=== PATIENT | male | born 1935 | race Caucasian/White ===

== ENCOUNTER 2022-06-22 19:44 | Inpatient (IN) | payer MEDICARE, MEDICAID, SELFPAY ==
[2022-06-22 19:53] VITALS: BP 148/68; PULSE 93; RESP 18; TEMP 36.6; O2SAT 94; BMI 34.4
--- NOTE | 2022-06-22 19:57 | CTR_ITS ---
PROCEDURE INFORMATION: Exam: CT Right Lower Extremity With Contrast, Foot Exam date and time: 06/22/2022 8:42 PM Age: 86 years old Clinical indication: Cellulitis and swelling, leg or foot; Right; Patient HX: Redness and swelling to distal foot with necrosis to digits. History of diabetes. ; Additional info: Infection TECHNIQUE: Imaging protocol: CT of the Right lower extremity with intravenous contrast was performed. Exam focused on the foot. Radiation optimization: All CT scans at this facility use at least one of these dose optimization techniques: automated exposure control; mA and/or kV adjustment per patient size (includes targeted exams where dose is matched to clinical indication); or iterative reconstruction. Contrast material: OMNI 350; Contrast volume: 100 ml; Contrast route: INTRAVENOUS (IV); COMPARISON: No relevant prior studies available. RADIATION DOSE METRICS: Total DLP (mGy-cm): 238.12 FINDINGS: Bones/joints: Demineralized bones. Erosive changes of the great toe proximal phalanx distally with intraosseous gas. Tissue loss of the distal great toe. Erosive bone changes of the great toe distal phalanx. Erosive changes of 2nd digit proximal phalanx head. Hammertoe deformities. Soft tissue ulcer with tissue loss of the distal 3rd digit. The 3rd digit distal phalanx bone is extruding from soft tissue ulcer. Focal erosive changes are apparent in the distal phalanx. Soft tissues: Diffuse soft tissue edema. Great toe soft tissue ulcer. Soft tissue ulcer over the dorsal aspect of the 2nd toe. Vasculature: Diffusely calcified vessels. CT/CT foot RT w con [id number] IMPRESSION: Soft tissue ulcers of 1st, 2nd, 3rd digits with 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
--- NOTE | 2022-06-22 19:59 | ED_ITS ---
HPI - Extremity Problem General: Chief complaint: General Medical Stated complaint: foot infection Time Seen by Provider: 06/22/22 19:48 Source: patient Mode of arrival: ambulatory Limitations: no limitations History of Present Illness: 86-year-old male has history of diabetes he has had a left BKA he states that he has had worsening cellulitis to his right foot he does have necrosis along with foul-smelling from his foot. Patient denies any fevers he is on any antibiotics denies any worsening proving factors. Associated symptoms: Deny chest pain, fever(s) or rash Review of Systems Const: Denies: fever(s), chills, body aches or change in appetite Eyes: Denies: blurry vision or eye discomfort ENMT: Denies: throat pain or dental pain Card: Denies: chest pain Resp: Denies: dyspnea GI: Denies: abdominal pain, nausea, vomiting or diarrhea : Denies: dysuria Musc: Reports: extremity pain Skin/Breast: Denies: rash Neuro: Denies: headache(s) Psych: Denies: depression Emery/Lymph: Denies: easy bruising All/Imm: Denies: urticaria PFS ED PFSH: Medical History (Updated 06/22/22 @ 21:18 by Erin Verma MD) No pertinent past medical history Social History (Updated 06/22/22 @ 20:01 by Erin Verma MD) Substance/Drug Use: never Physical Exam Const: COMMON NORMALS: patient oriented x3 GENERAL APPEARANCE: disheveled and ill appearing HENMT: COMMON NORMALS: normocephalic and atraumatic HEAD & SCALP: normocephalic and atraumatic Eye: COMMON NORMALS: Equal, round and reactive pupils present and EOMs intact bilaterally PUPIL: Yes Equal, round and reactive pupils present Neck/C-Spine: COMMON NORMALS: full ROM and supple Chest: COMMONS NORMALS: normal inspection of the chest and normal palpation of entire chest wall Resp: COMMON NORMALS: normal respiratory effort, No retractions, No use of accessory muscles and clear to auscultation bilaterally AUSCULTATION: clear to auscultation bilaterally Cardio: COMMON NORMALS: regular rate, regular rhythm and No murmurs present (Cardio) RATE: regular rate RHYTHM: regular rhythm GI: COMMON NORMALS: Normal to inspection, nondistended, normoactive bowel aubree nds present, Soft to palpation, non-tender and no masses PALPATION: Yes Soft to palpation Extremity: COMMON NORMALS: full ROM NARRATIVE EXTREMITY EXAM: Amputation to left side patient does have necrosis along with severe infection to the right foot with foul-smelling Neuro: COMMON NORMALS: patient oriented x3, moves all extremities and no focal motor deficits Psych: COMMON NORMALS: mental status grossly normal, Normal thought process present and cooperative THOUGHT PROCESS: Normal thought process present Skin: COMMON NORMALS: no rashes or lesions noted and no wounds GENERAL SKIN EXAM: no rashes or lesions noted Course Vital Signs: Vital signs: Vital Signs Temperature 97.9 F 06/22/22 19:53 Pulse Rate 93 06/22/22 19:53 Respiratory Rate 18 06/22/22 19:53 Blood Pressure 148/68 06/22/22 19:53 Pulse Oximetry 94 06/22/22 19:53 MDM - Extremity (Nontraumatic) Medical Decision Making Patient presents with a gangrenous right foot he does have an elevated white count I spoke to hospitalist will admit also spoke to orthopedic surgeon who is consulted. Lab Data 06/22/22 20:15 06/22/22 20:15 Laboratory Results WBC 15.6 10^3/uL (4.0-10.0) H 06/22/22 20:15 RBC 3.47 10^6/uL (4.1-5.3) L 06/22/22 20:15 Hgb 10.5 g/dL (11.7-16.6) L 06/22/22 20:15 Hct 32.0 % (42.0-52.0) L 06/22/22 20:15 MCV 92.2 fl (80-94) 06/22/22 20:15 MCH 30.3 pg (28.0-34.0) 06/22/22 20:15 MCHC 32.8 g/dL (30.0-36.0) 06/22/22 20:15 RDW 13.4 % (12.1-15.1) 06/22/22 20:15 Plt Count 411 10^3/cmm (130-400) H 06/22/22 20:15 MPV 10.1 fL (7.4-10.4) 06/22/22 20:15 Neut % (Auto) 86.0 % 06/22/22 20:15 Lymph % (Auto) 6.4 % 06/22/22 20:15 Hardee % (Auto) 5.6 % 06/22/22 20:15 Eos % (Auto) 0.5 % 06/22/22 20:15 Baso % (Auto) 0.3 % 06/22/22 20:15 Neut # (Auto) 13.41 10^3/uL (1.8-7.7) H 06/22/22 20:15 Lymph # (Auto) 1.0 10^3/uL (0.8-4.8) 06/22/22 20:15 Hardee # (Auto) 0.9 10^3/uL (0.2-0.9) 06/22/22 20:15 Eos # (Auto) 0.1 10^3/uL (0.0-0.8) 06/22/22 20:15 Baso # (Auto) 0.1 10^3/uL (0.0-0.1) 06/22/22 20:15 Nucleated RBC % (auto) 0 % 06/22/22 20:15 Nucleated RBCs # 0.0 /100WBC 06/22/22 20:15 Sodium 134 mmol/L (136-145) L 06/22/22 20:15 Potassium 4.0 mmol/L (3.5-5.1) 06/22/22 20:15 Chloride 102 mmol/L (98-107) 06/22/22 20:15 Carbon Dioxide 22 mmol/L (22-29) 06/22/22 20:15 Anion Gap 14.0 (5-19) 06/22/22 20:15 BUN 25 mg/dL (8-23) H 06/22/22 20:15 Creatinine 1.1 mg/dL (0.7-1.2) 06/22/22 20:15 GFR Calculation Not Reportable 06/22/22 20:15 Glucose 323 mg/dL (65-115) H 06/22/22 20:15 Calculated Osmolality 295 mOsm/kg (285-295) 06/22/22 20:15 Lactate 1.3 mmol/L (0.5-2.2) 06/22/22 20:15 Calcium 8.4 mg/dL (8.5-10.5) L 06/22/22 20:15 Total Bilirubin 0.3 mg/dL (0.15-1.2) 06/22/22 20:15 AST 9 U/L (0-40) 06/22/22 20:15 ALT 7 U/L (0-41) 06/22/22 20:15 Alkaline Phosphatase 75 U/L (40-130) 06/22/22 20:15 Total Protein 6.4 g/dL (6.6-8.7) L 06/22/22 20:15 Albumin 3.1 g/dL (3.5-5.2) L 06/22/22 20:15 Globulin 3.3 g/dL (1.3-4.6) 06/22/22 20:15 EKG Data EKG 1: I personally reviewed and interpreted this EKG as follows: EKG interpretation date: 06/22/22 EKG interpretation time: 20:04 Interpretation: nsr hr [address] or t wave abnormalities qrs 101 qtc 426 Discharge Plan Discharge Patient Disposition: Admitted As Inpatient Clinical Impression: Gangrene of right foot Coding Level of Care Code ED Director Of Maintenance for Chg Fwd Exam Comprehensive
[2022-06-22 20:30] LABS: Basophils # 0.1 10^3/uL (0.0-0.1); Basophils % 0.3 %; Eosinophils # 0.1 10^3/uL (0.0-0.8); Eosinophils % 0.5 %; Hemoglobin 10.5 g/dL (11.7-16.6); Lymphocytes % 6.4 %; Mean Corpuscular HGB Conc 32.8 g/dL (30.0-36.0); Mean Corpuscular Hemoglobin 30.3 pg (28.0-34.0); Mean Corpuscular Volume 92.2 fl (80-94); Mean Platelet Volume 10.1 fL (7.4-10.4); Monocytes # 0.9 10^3/uL (0.2-0.9); Monocytes % 5.6 %; Neutrophils # 13.41 10^3/uL (1.8-7.7); Nucleated Red Blood Cells % 0 %; Platelet Count 411 10^3/cmm (130-400); Red Blood Count 3.47 10^6/uL (4.1-5.3); Red Cell Distribution Width 13.4 % (12.1-15.1); White Blood Count 15.6 10^3/uL (4.0-10.0)
[2022-06-22 20:51] LABS: Lactate (Lactic Acid level) 1.3 mmol/L (0.5-2.2)
[2022-06-22 20:52] LABS: Alanine Aminotransferase 7 U/L (0-41); Albumin Level 3.1 g/dL (3.5-5.2); Alkaline Phosphatase 75 U/L (40-130); Aspartate Amino Transferase 9 U/L (0-40); Blood Urea Nitrogen 25 mg/dL (8-23); Calcium 8.4 mg/dL (8.5-10.5); Carbon Dioxide 22 mmol/L (22-29); Chloride 102 mmol/L (98-107); Globulin 3.3 g/dL (1.3-4.6); Glucose 323 mg/dL (65-115); Osmolality Calculated 295 mOsm/kg (285-295); Sodium 134 mmol/L (136-145); Total Bilirubin 0.3 mg/dL (0.15-1.2); Total Protein 6.4 g/dL (6.6-8.7)
[2022-06-22] MEDS: iohexol 350 mg/mL 500 mL Btl (per mL) IV (20:57)
[2022-06-22] MEDS: vancomycin 1,000 MG in sodium chloride 0.9% 250 ML 250 MG IV (21:29)
[2022-06-22 21:30] VITALS: BP 144/80; PULSE 93; RESP 19; O2SAT 95
--- NOTE | 2022-06-22 22:07 | PM.HP ---
Providers/Chief Complaint Admitting Physician: Dwight Bravo MD Primary Care Provider: Becky Moon DO Chief Complaint: foot infection History of Present Illness Tomer High is a 86 year old male with a past medical history of bilateral sensorineural hearing loss, bilateral cataracts, [id number] type 2 diabetes mellitus, hypertension, history of left below-knee amputation, who presents to [facility] due to gangrene, erythema, swelling, of right foot. He tells about a week ago, he was in a motorized wheelchair which he uses to ambulate, he was turning the corner when his right foot got caught, since then he started to develop right foot swelling with erythema, and developing wet gangrene of his digits, with increased drainage, no fevers, chills, no chest pain. Review of Systems Const: Denies: fever(s) Card: Denies: chest pain Resp: Denies: dyspnea Medications/Allergies Allergies Allergy/AdvReac Type Severity Reaction Status Date / Time Penicillins Allergy Unknown Unknown Verified 06/22/22 20:04 PFSH Acute PFSH: Medical History (Updated 06/22/22 @ 22:10 by Dwight Bravo MD) History of hypertension History of type 2 diabetes mellitus No pertinent past medical history Surgical History (Updated 06/22/22 @ 22:10 by Dwight Bravo MD) History of below knee amputation Family History (Updated 06/22/22 @ 22:09 by Dwight Bravo MD) Mother Diabetes Father CAD (coronary artery disease) Social History (Updated 06/22/22 @ 22:10 by Dwight Bravo MD) Smoking and tobacco status: never smoked Alcohol intake: never Substance/Drug Use: never Vitals/I&O/Wt Last Vital Signs Temp 97.9 F 06/22/22 19:53 Pulse 93 06/22/22 21:30 Resp 19 H 06/22/22 21:30 BP 144/80 06/22/22 21:30 Pulse Ox 95 06/22/22 21:30 O2 Del Method 06/22/22 21:30 Weight last 48 hrs Weight 99.79 kg Physical Exam Const: COMMON NORMALS: no acute distress and patient oriented x3 HENMT: COMMON NORMALS: normocephalic HEAD & SCALP: normocephalic Eye: COMMON NORMALS: Equal, round and reactive pupils present and EOMs intact bilaterally Neck/C-Spine: COMMON NORMALS: no JVD Lymph: LYMPHATIC: no lymphadenopathy noted Resp: COMMON NORMALS: normal respiratory effort, No retractions, No use of accessory muscles and clear to auscultation bilaterally AUSCULTATION: clear to auscultation bilaterally Cardio: COMMON NORMALS: no JVD, regular rate, regular rhythm, S1 normal heart sound present and S2 normal heart sound present RATE: regular rate RHYTHM: regular rhythm HEART SOUNDS: S1 normal heart sound present and S2 normal heart sound present GI: COMMON NORMALS: Normal to inspection, nondistended, normoactive bowel sounds present, Soft to palpation, non-tender, no masses and no bruits PALPATION: Yes Soft to palpation Extremity: COMMON NORMALS: no pedal edema NARRATIVE EXTREMITY EXAM: right lower extremity -DP PT pulses barely palpable and difficult to assess given gangrene, -Has multiple areas of wet gangrene, first digit, third digit, -Diabetic wound throughout right forefoot Neuro: COMMON NORMALS: patient oriented x3, CN's II-XII intact bilaterally, moves all extremities and no focal motor deficits Psych: COMMON NORMALS: mental status grossly normal Data 06/22/22 20:15 06/22/22 20:15 Micro: Microbiology 06/22/22 20:28 Blood Culture - Preliminary Blood SPECIMEN COLLECTED A&P Assessment and plan (1) Gangrene of right foot: Plan Right foot gangrene with osteomyelitis -Broad-spectrum antibiotic therapy vancomycin, meropenem -Blood cultures -ESR, CRP, Pro-Darrell -Arterial ultrasound -N.p.o. midnight -Orthopedic service has been consulted -Full code -One-time dose for Heparin for DVT prophylaxis, SCDs, resume anticoagulation after surgical procedure Type 2 diabetes mellitus, A1c, low-dose sliding scale Hypertension Attestations Medical Necessity Statement*: Patient, requires hospitalization, inpatient, greater than 2 midnights for right foot gangrene with osteomyelitis Coding Level of Care Code Acute Tester Waste Disposal Leakage for [facility] Fw Diagnoses Gangrene of right foot I96
--- NOTE | 2022-06-22 22:14 | ECG_ITS ---
[facility] Test Date: 2022-06-22 Pat Name: Tomer High Department: Room: 267 Gender: Male School Bus Technician: : 1935 Requested By: Dwight Bravo Order Number: [id number] Rita MD: Nica Aguilar M.D. Measurements Intervals [place] Rate: 96 P: -80 NV: 177 QRS: -4 QRSD: 95 T: 59 QT: 376 QTc: 476 Interpretive Statements SINUS RHYTHM WITH FREQUENT SUPRAVENTRICULAR PREMATURE COMPLEXES POSSIBLE INFERIOR MYOCARDIAL INFARCTION , PROBABLY OLD [30 ms Q WAVE IN II/aVF] ABNORMAL RHYTHM ECG No previous ECG available for comparison Electronically Signed On 06-23-2022 20:26:07 BIAS BINDING CUTTER by Nica Aguilar M.D. [id number]
[2022-06-22 22:47] LABS: Troponin(5th) Baseline 92 ng/L (0-15)
--- NOTE | 2022-06-22 23:08 | XRR_ITS ---
PROCEDURE INFORMATION: Exam: XR Chest Exam date and time: 06/23/2022 2:08 AM Age: 86 years old Clinical indication: Shortness of breath; Patient HX: SOB TECHNIQUE: Imaging protocol: Radiologic exam of the chest. Views: 1 view. COMPARISON: No relevant prior studies available. FINDINGS: Lungs: Right lung clear. Mild COPD. Left basilar opacity and small effusion. Pleural spaces: Unremarkable. No pleural effusion. No pneumothorax. Heart/Mediastinum: The heart is large. Diffuse vascular calcification. Bones/joints: Unremarkable. XR/XR chest 1V portable [id number] IMPRESSION: 1. Large heart with atherosclerosis and mild COPD. 2. Left lung base atelectasis, scarring, or small airspace disease.
[2022-06-22 23:12] VITALS: BP 142/70; PULSE 94; RESP 18; O2SAT 94
[2022-06-22 23:32] VITALS: BP 147/74; PULSE 96; RESP 14; TEMP 36.3; O2SAT 91
[2022-06-22 23:46] LABS: Erythrocyte Sedimentation Rate 49 mm/hr (0-10)
[2022-06-22 23:48] VITALS: BMI 34.4
[2022-06-22 23:52] LABS: Estmated Average Glucose 174; Hemoglobin A1C 7.7 % (4.0-6.0)
--- NOTE | 2022-06-22 23:59 | PC.PHAR ---
Pharmacokinetic dosing service Date: 06/22/22 Time: 2329 Objective: Patient: Tomer High Floor: 267-1 Age: 86 yo Serum creatinine: 1.1 mg/dL Height: 67.0 Inches Weight (kg): 99.79 Diagnosis: Relevant medical/social history: Cultures and sensitivities: Other labs: Assessment: IBW (kg): 66.10 Dosing wt(kg): 99.79 Estimated Creatinine clearance (ml/min): 45.1 CRCL method: Cockcroft and Gault using ibw(default). Drug selected: Vancomycin Loading dose (mg): 0 Vd (liters): 89.8 (factor used: 0.9 L/kg) Johnathan (hr-1): 0.042 Half life (hrs): 16.50 Recommended dose: 1500 mg Interval: 24 hrs Infusion time (hrs): 1.5 Predicted peak (mcg/mL): 25.5 Predicted trough (mcg/mL): 9.91 Total body weight is being used for vancomycin dosing. Renal function is stable [ ] /unstable [ ] Recommendations: Give Vancomycin 1500 mg q 24 hrs with an expected Cpeak of 25.5 mcg/ml and an expected Ctrough of 9.91 mcg/ml Renal dosing of other antibiotics (review renal dosing of other medications and list guidelines here): Thank you for the consult, will continue to follow. Signature: Soumya Hicks [facility]
[2022-06-23] VITALS (20 sets, daily range): BP systolic 116–163; BP diastolic 61–79; PULSE 80–92; RESP 14–18; TEMP 36.5–37.1; O2SAT 93–98
[2022-06-23] MEDS: heparin 5,000 unit/mL INJ 1 mL 5000 UNIT SUBCUT
[2022-06-23] MEDS: sodium chloride 0.9% 1,000 ML 75 ML IV ×2 (00:01→12:23)
--- NOTE | 2022-06-23 00:14 | ECG_ITS ---
[facility] Test Date: 2022-06-23 Pat Name: Tomer High Department: Room: 267 Gender: Male Residential Direct Support Professional: : 1935 Requested By: Dwight Bravo Order Number: [id number] Rita MD: Nica Aguilar M.D. Measurements Intervals [place] Rate: 92 P: 76 VA: 231 QRS: 5 QRSD: 92 T: 53 QT: 388 QTc: 481 Interpretive Statements SINUS RHYTHM WITH FIRST DEGREE AV BLOCK WITH OCCASIONAL SUPRAVENTRICULAR PREMATURE COMPLEXES PROBABLE INFERIOR MYOCARDIAL INFARCTION , PROBABLY OLD [35 ms Q WAVE IN II/aVF] Compared to ECG 06/22/2022 22:26:07 First degree AV block now present Myocardial infarct finding still present Electronically Signed On 06-23-2022 20:37:57 BUFFER INFLATED PAD by Nica Aguilar M.D. [id number]
[2022-06-23 00:15] LABS: NT Pro B Type Natriuretic Pept 1892 pg/mL (0-450); Procalcitonin 0.12 ng/mL (0-0.5); Thyroid Stimulating Hormone 1.15 uIU/mL (0.27-4.20)
[2022-06-23 00:26] LABS: C Reactive Protein 37.4 mg/L (0.0-4.9); Chol HDL Ratio 3.15 mg/dL (1.0-5.00); Cholesterol 107 mg/dL (0-200); HDL Cholesterol 34 mg/dL (60-100); LDL Cholesterol Calculated 44 mg/dL (50-129); LDL HDL Ratio 1.29 RATIO (0.00-3.22); Triglycerides 144 mg/dL (0-150)
[2022-06-23] MEDS: ondansetron 2 mg/ML SDV 2 mL 4 MG IVP (00:40)
[2022-06-23 01:35] LABS: Troponin 5 2HR 84.01 ng/L (0-15)
[2022-06-23 01:39] LABS: Troponin 5 2HR Delta -7.99 ABS# (0-10)
[2022-06-23 04:11] LABS: Basophils # 0.1 10^3/uL (0.0-0.1); Basophils % 0.4 %; Eosinophils # 0.1 10^3/uL (0.0-0.8); Eosinophils % 0.6 %; Hematocrit 31.3 % (42.0-52.0); Hemoglobin 10.1 g/dL (11.7-16.6); Lymphocytes # 1.2 10^3/uL (0.8-4.8); Lymphocytes % 8.3 %; Mean Corpuscular HGB Conc 32.3 g/dL (30.0-36.0); Mean Corpuscular Hemoglobin 29.9 pg (28.0-34.0); Mean Corpuscular Volume 92.6 fl (80-94); Mean Platelet Volume 10.6 fL (7.4-10.4); Monocytes # 0.9 10^3/uL (0.2-0.9); Monocytes % 6.2 %; Neutrophils # 11.49 10^3/uL (1.8-7.7); Neutrophils % 83.2 %; Nucleated Red Blood Cells % 0 %; Platelet Count 415 10^3/cmm (130-400); Red Blood Count 3.38 10^6/uL (4.1-5.3); Red Cell Distribution Width 13.2 % (12.1-15.1); White Blood Count 13.8 10^3/uL (4.0-10.0)
--- NOTE | 2022-06-23 04:14 | ECG_ITS ---
[facility] Test Date: 2022-06-22 Pat Name: Tomer High Department: Room: 267 Gender: Male Communications Agent: : 1935 Requested By: Dwight Bravo Order Number: [id number] Rita MD: Nica Aguilar M.D. Measurements Intervals [place] Rate: 92 P: 105 VA: 223 QRS: -4 QRSD: 101 T: 60 QT: 376 QTc: 467 Interpretive Statements SINUS RHYTHM WITH SINUS ARRHYTHMIA WITH FIRST DEGREE AV BLOCK No previous ECG available for comparison Electronically Signed On 06-23-2022 20:38:31 SAFETY RISK LEAD by Nica Aguilar M.D. [id number]
[2022-06-23 04:45] LABS: Blood Urea Nitrogen 23 mg/dL (8-23); Calcium 8.8 mg/dL (8.5-10.5); Carbon Dioxide 24 mmol/L (22-29); Chloride 104 mmol/L (98-107); Glucose 235 mg/dL (65-115); Magnesium 1.6 mg/dL (1.7-2.3); Osmolality Calculated 293 mOsm/kg (285-295); Sodium 136 mmol/L (136-145)
[2022-06-23 04:51] LABS: Troponin 5 6HR 90.86 ng/L (0-15)
[2022-06-23 04:52] LABS: Troponin 5 6HR Delta -1.14 ng/L (0-12)
[2022-06-23] MEDS: meropenem 1,000 MG in sodium chloride 0.9% (plus) 50 ML 100 MG IV ×4 (06:47→23:59)
[2022-06-23 07:34] LABS: Glucose Point of Care 207 mg/dL (70-110)
--- NOTE | 2022-06-23 09:01 | ANES.PREANE2 ---
Pre-Anesthetic Assessment Height/Weight: Height 1.7 m Weight 99.79 kg Temp Pulse Resp BP Pulse Ox O2 Del Method 98.7 F 88 18 147/75 96 06/23/22 08:48 06/23/22 08:48 06/23/22 08:48 06/23/22 08:48 06/23/22 08:48 06/23/22 08:48 Operation Date: 06/23/22 09:30 Proposed Procedures p Amputation Toe(Right) - Demetrio Li MD Familial anesthetic complications: NOne Was Beta Andrea taken within 24 hours: N/A Was Clonidine taken within 24 hours: N/A Last intake: > 8hrs Social No alcohol and No tobacco Exam alert, oriented x 3, clear to auscultation bilaterally and regular rate & rhythm Airway Mallampati: Class IV Dentition: full CV/HEM Hypertension and Peripheral Vascular Disease Metabolic Diabetes Mellitus Anesthetic Plan ASA status: 4 Anesthesia: General Risk of > 500 ml blood loss (7ml/kg in children): No Medications/Allergies Allergies Allergy/AdvReac Type Severity Reaction Status Date / Time Penicillins Allergy Unknown Unknown Verified 06/22/22 20:04 Current Medications Generic Name Dose Route Start Last Admin Trade Name Freq PRN Reason Stop Dose Admin Meropenem 1,000 mg/ Sodium 50 mls @ 100 mls/hr 06/22/22 23:30 06/23/22 07:39 Chloride IV Infused Q8H LATANYA Infusion Sodium Chloride 1,000 mls @ 75 mls/hr 06/22/22 23:08 06/23/22 00:01 Sodium Chloride 0.9% IV 75 mls/hr .[id number] LATANYA Administration Ondansetron HCl 4 mg 06/22/22 23:08 06/23/22 00:40 Ondansetron 2 Mg/Ml Sdv 2 Ml IVP 4 mg Q8H PRN Administration vomiting, or N/V if npo Pantoprazole Sodium 40 mg 06/22/22 23:08 06/23/22 00:00 Pantoprazole 40 Mg Sdv IVP 40 mg Q24H LATANYA Administration PFSH Anesthesia Medical History (Updated 06/22/22 @ 22:10 by Dwight Bravo MD) History of hypertension History of type 2 diabetes mellitus No pertinent past medical history Surgical History (Updated 06/22/22 @ 22:10 by Dwight Bravo MD) History of below knee amputation Family History (Updated 06/22/22 @ 22:09 by Dwight Bravo MD) Mother Diabetes Father CAD (coronary artery disease) Social History (Updated 06/22/22 @ 22:10 by Dwight Bravo MD) Smoking and tobacco status: never smoked Alcohol intake: never Substance/Drug Use: never Data Anesthesia 06/23/22 03:37 06/23/22 03:37 Short CBC 06/22/22 06/23/22 Range/Units 20:15 03:37 WBC 15.6 H 13.8 H (4.0-10.0) 10^3/uL Hgb 10.5 L 10.1 L (11.7-16.6) g/dL Hct 32.0 L 31.3 L (42.0-52.0) % MCV 92.2 92.6 (80-94) fl Plt Count 411 H 415 H (130-400) 10^3/cmm Neut % (Auto) 86.0 83.2 % Neut # (Auto) 13.41 H 11.49 H (1.8-7.7) 10^3/uL BMP 06/22/22 06/23/22 20:15 03:37 Sodium 134 L 136 Potassium 4.0 4.0 Chloride 102 104 Carbon Dioxide 22 24 BUN 25 H 23 Creatinine 1.1 1.2 Glucose 323 H 235 H Calcium 8.4 L 8.8 Cardiac Enzymes 06/22/22 06/22/22 06/23/22 Range/Units 20:15 20:15 01:08 Troponin T Baseline 92 H (0-15) ng/L Troponin T 120 Minute 84.01 H (0-15) ng/L Delta Troponin T -7.99 L (0-10) ABS# Troponin T Hi Sens 6Hr (0-15) ng/L Troponin T Hi Sens 6Hr Delta (0-12) ng/L NT-Pro-B Natriuret Pep 1892 H (0-450) pg/mL 06/23/22 Range/Units 03:37 Troponin T Baseline (0-15) ng/L Troponin T 120 Minute (0-15) ng/L Delta Troponin T (0-10) ABS# Troponin T Hi Sens 6Hr 90.86 H (0-15) ng/L Troponin T Hi Sens 6Hr Delta -1.14 L (0-12) ng/L NT-Pro-B Natriuret Pep (0-450) pg/mL Liver Function 06/22/22 Range/Units 20:15 Total Bilirubin 0.3 (0.15-1.2) mg/dL AST 9 (0-40) U/L ALT 7 (0-41) U/L Alkaline Phosphatase 75 (40-130) U/L Albumin 3.1 L (3.5-5.2) g/dL Coags 06/22/22 06/22/22 20:15 20:15 ESR 49 H C-Reactive Protein 37.4 H Microbiology 06/22/22 20:31 Blood Culture - Preliminary Blood SPECIMEN COLLECTED 06/22/22 20:28 Blood Culture - Preliminary Blood SPECIMEN COLLECTED Cardiac Studies: No Data to Display
[2022-06-23] MEDS: sodium chloride 0.9% 1,000 ML 30 ML IV (09:05)
--- NOTE | 2022-06-23 09:21 | PC.PHAR ---
PT UNABLE TO VERIFY DUE TO BEING IN SURGERY- MEDICATIONS VERIFIED USING EXTERNAL MED LIST LAST FILLED
--- NOTE | 2022-06-23 09:50 | PC.CHAP ---
Pastoral Care Encounter/Spiritual Assessment Type of Contact [] Declined product marketing intern visit [] Patient/Family/Request visit [] Outpatient visit [] Follow-up visit [] Physician referral [] Code/Alert [x] Routine visit [] Staff referral [] Actively dying [] Patient sleeping [] Family support [] [x] Out of room [] Palliative care [] [] Receiving care in room [] Pre-surgical visit [] Trauma [] Long length of stay [] ICU visit [] Other: Relational/Emotional Strength [] Patient feels connected with others/family/visitors/staff [] Distress [] Loneliness/isolation [] Abandonment Spirituality of Patient [] Person of Gayla [] Attends Yazidism of their Gayla [] Believes in Prayer [] Reads Bible or Sabianist materials [] There are Spiritual issues to be addressed Architectural Intern Interventions [] Prayer [] Active listening [] Non-anxious presence [] Spiritual/emotional support [] Crisis/trauma care [] Spiritual counseling [] Bereavement support [] Provided bereavement packet [] Provided Bible/devotional materials [] Provided toy/stuffed animal, coloring book to patient or family member [] Provided Communion [] Anointing/Clute [] Salvation [] Completed spiritual assessment [] Other: Impact on Illness or Injury [] Angry [] Fearful [] Anxious [] Often cries [] Exhaustion [] Unable to work [] Unable to attend sabianism [] Unable to walk/stand [] Unable to read [] Unable to drive [] Unable to eat/drink [] Unable to sleep [] Unable to be with family [] Patient intubated [] Other: Summary Time spent with patient
--- NOTE | 2022-06-23 09:56 | P.CONIM_ITS ---
Providers/Reason For Consult Consulting Physician/Specialty*: Demetrio Li MD; orthopedic surgery Reason for Consult*: Gangrene right foot Attending Physician: Sergio Arnold MD Primary Care Provider: Becky Moon DO History of Present Illness History of Present Illness Tomer High is a 86 year old male with a past medical history of bilateral sensorineural hearing loss, bilateral cataracts, dhe-whnwmup-cwgjiczyg type 2 diabetes mellitus, hypertension, history of left below-knee amputation, who presents to [facility] due to gangrene, erythema, swelling, of right foot.? He is a poor historian. He states he has had problems for some time. It was reported that about a week ago, he was in a motorized wheelchair which he uses to ambulate, he was turning the corner when his right foot got caught, since then he started to develop right foot swelling with erythema, and developing wet gangrene of his digits, with increased drainage, no fevers, chil ls, no chest pain. He has a previous left below-knee amputation with a prosthesis. He states he is minimally ambulatory. I spoke with his daughter Kiersten who reports that she in the year there has been several deaths in the family including his . The patient has made every effort he can to stay at home independent but it has been difficult. Medications/Allergies Home Medications Medication Instructions Recorded Confirmed Last Taken Type amlodipine 10 mg tablet 10 mg PO DAILY 06/23/22 06/23/22 Unknown History atenolol 100 mg tablet 100 mg PO DAILY 06/23/22 06/23/22 Unknown History glipizide 5 mg tablet 5 mg PO QID 06/23/22 06/23/22 Unknown History linagliptin 5 mg tablet (Tradjenta) 5 mg PO DAILY 06/23/22 06/23/22 Unknown History lisinopril 40 mg tablet 40 mg PO BID 06/23/22 06/23/22 Unknown History montelukast 10 mg tablet 10 mg PO DAILY 06/23/22 06/23/22 Unknown History pioglitazone 30 mg tablet 30 mg PO DAILY 06/23/22 06/23/22 Unknown History simvastatin 20 mg tablet 20 mg PO QPM 06/23/22 06/23/22 Unknown History Allergies Allergy/AdvReac Type Severity Reaction Status Date / Time Penicillins Allergy Unknown Unknown Verified 06/23/22 09:20 Current Medications Generic Name Dose Route Start Last Admin Trade Name Freq PRN Reason Stop Dose Admin Meropenem 1,000 mg/ Sodium 50 mls @ 100 mls/hr 06/22/22 23:30 06/23/22 07:39 Chloride IV Infused Q8H LATANYA Infusion Sodium Chloride 1,000 mls @ 75 mls/hr 06/22/22 23:08 06/23/22 00:01 Sodium Chloride 0.9% IV 75 mls/hr .[id number] LATANYA Administration Sodium Chloride 1,000 mls @ 30 mls/hr 06/23/22 09:00 06/23/22 09:05 Sodium Chloride 0.9% IV 06/24/22 08:59 30 mls/hr .Q24H LATANYA Administration Ondansetron HCl 4 mg 06/22/22 23:08 06/23/22 00:40 Ondansetron 2 Mg/Ml Sdv 2 Ml IVP 4 mg Q8H PRN Administration vomiting, or N/V if npo Pantoprazole Sodium 40 mg 06/22/22 23:08 06/23/22 00:00 Pantoprazole 40 Mg Sdv IVP 40 mg Q24H LATANYA Administration PFSH Acute PFSH: Medical History (Updated 06/22/22 @ 22:10 by Dwight Bravo MD) History of hypertension History of type 2 diabetes mellitus No pertinent past medical history Surgical History (Updated 06/22/22 @ 22:10 by Dwight Bravo MD) History of below knee amputation Family History (Updated 06/22/22 @ 22:09 by Dwight Bravo MD) Mother Diabetes Father CAD (coronary artery disease) Social History (Updated 06/22/22 @ 22:10 by Dwight Bravo MD) Smoking and tobacco status: never smoked Alcohol intake: never Substance/Drug Use: never Vitals/I&O/Wt Last Vital Signs Temp 98.7 F 06/23/22 08:48 Pulse 88 06/23/22 08:48 Resp 18 06/23/22 08:48 BP 147/75 06/23/22 08:48 Pulse Ox 96 06/23/22 08:48 O2 Del Method 06/23/22 08:48 06/22/22 06/23/22 06/23/22 22:59 06:59 14:59 Intake Total 250 / 250 50 / 300 50 / 50 Balance 250 / 250 50 / 300 50 / 50 Weight last 48 hrs Weight 220 lb Weight 220 lb Physical Exam Narrative: Patient has extensive gangrene of his right foot with necrosis of all of his toes. He has moist erythema extending up to approximately the midfoot. There is erythematous hyperkeratotic skin and multiple spotty superficial erythema eczematous wounds extending to the proximal third of his leg. The skin looks more questionable anteriorly than posteriorly. I cannot feel a pulse in his foot is insensate. He has a previous left below-knee amputation with a small area of proud granulation over the tip. Data 06/23/22 03:37 06/23/22 03:37 Micro: Microbiology 06/22/22 20:31 Blood Culture - Preliminary Blood SPECIMEN COLLECTED 06/22/22 20:28 Blood Culture - Preliminary Blood SPECIMEN COLLECTED A&P Assessment and plan (1) Gangrene of right foot: Tomer has extensive gangrene of his right foot and skin changes actually up to the proximal third of the leg. I certainly do not think this is salvageable without amputation. Ideally I would prefer below-knee amputation as this would allow some potential for prosthesis and ambulation. In all truthfulness with a previous left below-knee amputation and with his medical state I am not sure he will ever regain ambulatory status. I discussed above-knee amputation is a more reliable healing operation. I told him there really would be no chance of him being fit with a functional prosthesis to facilitate ambulation at this level. He and his daughter stated that there is a strong desire for him to try and maintain some independence. They understand that a below-knee amputation will have a higher rate of healing problem. Understanding these risks the patient wishes to proceed with a below-knee amputation. I discussed this with his daughter Kiersten who would like to proceed with the patient's wishes. We will proceed with surgery today Coding Level of Care Code Acute Supervisor Cutting Department for Keisha Platt Diagnoses Gangrene of right foot I96
--- NOTE | 2022-06-23 11:27 | PM.OP ---
Operative Report Date of procedure: June 23, 2022 Pre-op diagnosis: Preop Diagnosis Gangrene right foot Post-op diagnosis: same Procedure done: Right below-knee amputation Pathology: none sent Pathology: Residual limb was sent for final pathology Surgeon: Demetrio Li Anesthesia: General Estimated blood loss (mL): 600 Findings: The patient had gangrene across his toes and forefoot with erythematous skin extending up to the proximal third of the leg. At the time of surgery his musculature had good vascularity. He had calcified tibialis posterior and peroneal vessels. Condition: stable Disposition: PACU Procedure: The patient was taken to the operating room. He was given a general anesthesia and his left lower extremity was prepped and draped in usual fashion. A timeout was performed. Initially a scalpel was used to fashion a short anterior flap and a longer posterior flap was fashioned over a point approximately 16 cm distal to the joint line. Dissection was carried down with electrocautery to the anterior tibia and the anterior lateral musculature was divided. Utilizing an oscillating saw the distal tibia was cut. A slightly more proximal oblique cut was made of the distal fibula. The anterior tibia was a beveled smooth with the saw. Bone hook was used to recheck the tibia and fibula anteriorly and a amputation knife was used to complete the amputation through the posterior musculature. The popliteal vessel was identified and sutured with #1 Vicryl suture. The tourniquet was deflated. Hemostasis provided with electrocautery. 3 drill holes were made in the anterior tibia and through these drill holes were passed two #1 Vicryl sutures. There is then brought through the posterior fascia on the posterior gastrocsoleus flap drawing that muscle up to bone. The remainder fascia anteriorly and posteriorly were reapproximated medially and laterally with #1 Vicryl suture. Subcutaneous tissues were closed with 2-0 Vicryl suture and the skin with skin mauri. Xeroflo gauze, 4 x 4's, Kerlix roll, ABD pads, compressive web roll, and an Peter wrap were applied. Patient was extubated and taken to recovery room in stable condition.
[2022-06-23] MEDS: fentaNYL 50 mcg/mL INJ 2mL IVP (11:35)
--- NOTE | 2022-06-23 11:48 | P.PN_ITS ---
Subjective Subjective: Status post amputation Vitals/I&O/Wt Last Vital Signs Temp 98.8 F 06/23/22 11:28 Pulse 86 06/23/22 11:33 Resp 16 06/23/22 11:35 BP 142/61 06/23/22 11:33 Pulse Ox 98 06/23/22 11:35 O2 Del Method 06/23/22 11:33 O2 Flow Rate 6 06/23/22 11:28 06/22/22 06/23/22 06/23/22 22:59 06:59 14:59 Intake Total 250 / 250 50 / 300 50 / 50 Output Total 600 / 600 Balance 250 / 250 50 / 300 -550 / -550 Weight last 48 hrs Weight 99.79 kg Weight 99.79 kg Physical Exam Narrative: Postop wound covered with dressing Awake and alert Doing well on room air Hemodynamically stable Abdomen soft Nonfocal neuro exam Pleasant and cooperative Data 06/23/22 03:37 06/23/22 03:37 Micro: Microbiology 06/22/22 20:31 Blood Culture - Preliminary Blood SPECIMEN COLLECTED 06/22/22 20:28 Blood Culture - Preliminary Blood SPECIMEN COLLECTED A&P Assessment and plan (1) Gangrene of right foot: Plan Patient will need long-term placement DVT prophylaxis to be initiated today Status post amputation postop day 0 No postop complications Patient tolerated the procedure very well Start DVT prophylaxis We will continue IV antibiotics for today Might switch to oral over the weekend Full code Consistent carb diet, moderate dose sliding scale Attestations Medical Necessity Statement*: Continue medical management Time Spent in Patient Care: 30 Coding Level of Care Code Acute Sludge Mill Operator for Keisha Platt Diagnoses Gangrene of right foot I96
[2022-06-23 12:20] LABS: Glucose Point of Care 218 mg/dL (70-110)
[2022-06-23] MEDS: insulin lispro 100 unit/1 mL SUBCUT (12:23)
--- NOTE | 2022-06-23 14:08 | ANE.PACU2 ---
Inpatient post-anesthesia follow up: Airway intact: Yes Vital signs: Temperature 98.2 F Pulse Rate 87 Respiratory Rate 16 Blood Pressure 152/70 Pulse Oximetry 95 Oxygen Delivery Me thod Room Air Oxygen Flow Rate 6 Fraction of Inspir ed Oxygen Hydration adequate: Yes Nausea and vomiting: No Pain level: 1 Mental status: Baseline
[2022-06-23] MEDS: oxyCODONE 5 mg IR Tab/Cap PO ×2 (14:41→20:06)
--- NOTE | 2022-06-23 15:57 | PC.NURSE ---
Daughter's cell phone number is [phone] and lives with the patient, so also has the same home phone number.
[2022-06-23 17:02] LABS: Glucose Point of Care 124 mg/dL (70-110)
[2022-06-23] MEDS: morphine 4 mg/mL SDV 1 mL 2 MG IVP (17:22)
[2022-06-23] MEDS: atorvastatin 40 mg Tablet 20 MG PO (20:07)
[2022-06-23] MEDS: vancomycin 1,500 MG/300 ML PIGGYBACK 200 MG IV (21:33)
[2022-06-23 21:56] LABS: Glucose Point of Care 173 mg/dL (70-110)
--- NOTE | 2022-06-23 23:08 | USCV_ITS ---
HighTomer Age: 86 Gender: M : 1935 Exam Date: 06/23/2022 00:23 Ordering Phys: Dwight Bravo MD Technologist: GREGORY [place] [facility] [place]: LEFT BKA 2010. c/o RIGHT foot severe malodorous infection. with cellulitis. DM Risk Factors: LEFT BKA 2010. c/o RIGHT foot severe malodorous infection. with cellulitis. DM Previous Vascular Surgery: LEFT BKA 2011 RIGHT LEFT BP: 159.0 / BP: 145.0/ 0 0 Waveform Velocity (cm/s) Velocity (cm/s) Waveform Triphasic 152.3 Iliac Prox 94.8 Triphasic Triphasic 144.5 Iliac Mid 138.9 Triphasic Triphasic 130.5 Iliac Distal 116.9 Triphasic Triphasic 158.5 TAVERN KEEPER 96.3 Triphasic Triphasic 160.0 SFA Prox 72.8 Biphasic Biphasic SFA Mid Biphasic 122.7 100.3 Biphasic 71.5 SFA Dist 38.8 Biphasic Biphasic 57.5 POP 62.9 Biphasic Monophasic 17.1 VIROLOGIST N/A N/A 0.0 DPA N/A 0.4 HUMAIRA 0.0 FINDINGS Moderately heavy diffuse plaques in the iliac, femoral popliteal and infrapopliteal vessels on the right side. Resting HUMAIRA 0.4 on the right side Resting HUMAIRA 0.0 on the left side CONCLUSIONS 1. Abnormal resting HUMAIRA on the right side, suggesting severe peripheral arterial disease, possibly multisegmental. Moderate to heavy plaques are noted in the iliac, common femoral, popliteal and infrapopliteal vessels. 2. 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 Moderate diffuse plaques were noted in the iliac and femoral arteries. Dr Daphney Nelson MD [facility] (Electronically Signed) Final Date: 23 June 2022 17:48 S
[2022-06-23] MEDS: pantoprazole 40 mg SDV IVP ×2 (23:59)
[2022-06-24] MEDS: sodium chloride 0.9% 1,000 ML 75 ML IV (01:31)
[2022-06-24 03:48] VITALS: BP 123/67; PULSE 89; RESP 16; TEMP 37.2; O2SAT 92
[2022-06-24 06:41] LABS: Glucose Point of Care 173 mg/dL (70-110)
[2022-06-24] MEDS: meropenem 1,000 MG in sodium chloride 0.9% (plus) 50 ML 100 MG IV (06:41)
[2022-06-24 07:10] VITALS: BP 147/65; PULSE 92; RESP 16; TEMP 36.6; O2SAT 91
[2022-06-24] MEDS: oxyCODONE 5 mg IR Tab/Cap PO (08:29)
[2022-06-24] MEDS: amlodipine 10 mg Tablet PO (08:29)
[2022-06-24] MEDS: lisinopril 20 mg Tablet 40 MG PO (08:29)
[2022-06-24] MEDS: insulin lispro 100 unit/1 mL SUBCUT (08:33)
[2022-06-24 08:52] LABS: Basophils # 0.1 10^3/uL (0.0-0.1); Basophils % 0.4 %; Eosinophils # 0.2 10^3/uL (0.0-0.8); Eosinophils % 0.8 %; Hematocrit 27.3 % (42.0-52.0); Hemoglobin 8.4 g/dL (11.7-16.6); Lymphocytes # 1.3 10^3/uL (0.8-4.8); Lymphocytes % 6.5 %; Mean Corpuscular HGB Conc 30.8 g/dL (30.0-36.0); Mean Corpuscular Hemoglobin 29.9 pg (28.0-34.0); Mean Corpuscular Volume 97.2 fl (80-94); Mean Platelet Volume 10.3 fL (7.4-10.4); Monocytes # 1.3 10^3/uL (0.2-0.9); Monocytes % 6.8 %; Neutrophils # 16.43 10^3/uL (1.8-7.7); Neutrophils % 84.3 %; Nucleated Red Blood Cells % 0 %; Platelet Count 388 10^3/cmm (130-400); Red Blood Count 2.81 10^6/uL (4.1-5.3); Red Cell Distribution Width 13.5 % (12.1-15.1); White Blood Count 19.5 10^3/uL (4.0-10.0)
[2022-06-24 09:14] LABS: Anion Gap 14.3 (5-19); Blood Urea Nitrogen 20 mg/dL (8-23); Calcium 7.8 mg/dL (8.5-10.5); Carbon Dioxide 20 mmol/L (22-29); Chloride 108 mmol/L (98-107); Glucose 156 mg/dL (65-115); Osmolality Calculated 292 mOsm/kg (285-295); Potassium 4.3 mmol/L (3.5-5.1); Sodium 138 mmol/L (136-145)
[2022-06-24] MEDS: ondansetron 2 mg/ML SDV 2 mL 4 MG IVP (09:27)
--- NOTE | 2022-06-24 10:11 | P.PN_ITS ---
Subjective Subjective: Patient is endorsing nausea No active vomiting He was trying to eat breakfast No overnight events Hemoglobin 8.4 Vitals/I&O/Wt Last Vital Signs Temp 97.9 F 06/24/22 07:10 Pulse 92 06/24/22 07:10 Resp 16 06/24/22 07:10 BP 147/65 06/24/22 07:10 Pulse Ox 91 06/24/22 07:10 O2 Del Method 06/24/22 07:10 O2 Flow Rate 6 06/23/22 11:28 06/23/22 06/24/22 06/24/22 22:59 06:59 14:59 Intake Total 290 / 2071.0 1335 / 3406.0 170 / 170 Balance 290 / 1471.0 1335 / 2806.0 170 / 170 Weight last 48 hrs Weight 99.79 kg Weight 99.79 kg Physical Exam Narrative: Patient is hemodynamically stable Awake and alert Hard of hearing Limited vision Answer my questions appropriately Looks euvolemic Abdomen soft S1, S2 No audible stridor or wheezing Doing well on room air Data 06/24/22 08:28 06/24/22 08:28 Micro: Microbiology 06/22/22 20:31 Blood Culture - Preliminary Blood NEGATIVE TO DATE 06/22/22 20:28 Blood Culture - Preliminary Blood NEGATIVE TO DATE A&P Assessment and plan (1) Gangrene of right foot: (2) History of right below knee amputation: Plan Right below-knee amputation status post gangrene, Postop day 1 Leukocytosis 19.5, hemoglobin 8.4 Monitor H&H for now Hemodynamically stable Complaining of nausea Will give him Reglan to be alternate with Zofran Will need placement Full code Consistent carb diet Discontinue IV antibiotics switched to levofloxacin, source control has been obtained, he is afebrile Full code DVT prophylaxis on board Attestations Medical Necessity Statement*: Continue medical management Time Spent in Patient Care: 40 Coding Level of Care Code Acute Merry Go Round Operator for Keisha Platt Diagnoses Gangrene of right foot I96 History of right below knee amputation Z89.511
--- NOTE | 2022-06-24 10:45 | XRR_ITS ---
PROCEDURE INFORMATION: Exam: XR Abdomen Exam date and time: 06/24/2022 11:13 AM Age: 86 years old Clinical indication: Nausea TECHNIQUE: Imaging protocol: Radiologic exam of the abdomen. Views: Frontal supine view of the abdomen. 1 View. COMPARISON: CR (CHEST, ) 06/23/2022 2:08 AM FINDINGS: Gastrointestinal tract: Fecal material noted throughout the colon and distally in the rectum. Air-filled small bowel loops noted which are not abnormally dilated. Bones/joints: Multilevel degenerative changes in the spine. XR/XR KUB portable [id number] IMPRESSION: Nonobstructive bowel gas pattern.
[2022-06-24 11:16] VITALS: BP 142/73; PULSE 98; RESP 16; RESP 18; TEMP 36.7; O2SAT 93
[2022-06-24] MEDS: morphine 4 mg/mL SDV 1 mL 2 MG IVP (11:16)
[2022-06-24 11:17] LABS: Glucose Point of Care 82 mg/dL (70-110)
[2022-06-24] MEDS: enoxaparin 30 mg/0.3 mL Syringe SUBCUT (11:19)
[2022-06-24] MEDS: polyethylene glycol 3350 Pkt 17 gm PO ×2 (11:47→17:22)
[2022-06-24] MEDS: sennosides-docusate Tablet 2 TAB PO ×2 (11:47→17:22)
[2022-06-24 15:37] VITALS: BP 146/70; PULSE 94; RESP 18; TEMP 36.8; O2SAT 92
[2022-06-24 16:55] LABS: Glucose Point of Care 133 mg/dL (70-110)
[2022-06-24] MEDS: gabapentin 300 mg Capsule PO (17:22)
[2022-06-24 17:53] LABS: Hematocrit 26.9 % (42.0-52.0); Hemoglobin 8.2 g/dL (11.7-16.6)
[2022-06-24 19:41] VITALS: BP 133/85; PULSE 80; RESP 18; TEMP 37.1; O2SAT 93
[2022-06-24] MEDS: peg /e-lyte soln 4,000 mL Btl 1500 ML PO (21:01)
[2022-06-24] MEDS: atorvastatin 40 mg Tablet 20 MG PO (21:02)
[2022-06-24 21:15] LABS: Glucose Point of Care 163 mg/dL (70-110)
[2022-06-24 23:53] VITALS: BP 115/67; PULSE 92; RESP 17; TEMP 36.9; O2SAT 90
[2022-06-25] MEDS: mineral oil ENEMA 133 mL PR (03:18)
[2022-06-25 04:07] VITALS: BP 135/63; PULSE 87; RESP 18; TEMP 36.5; O2SAT 92
[2022-06-25 05:29] LABS: Basophils # 0.1 10^3/uL (0.0-0.1); Basophils % 0.4 %; Eosinophils # 0.2 10^3/uL (0.0-0.8); Eosinophils % 0.9 %; Hematocrit 24.9 % (42.0-52.0); Hemoglobin 7.7 g/dL (11.7-16.6); Lymphocytes # 1.1 10^3/uL (0.8-4.8); Lymphocytes % 6.1 %; Mean Corpuscular HGB Conc 30.9 g/dL (30.0-36.0); Mean Corpuscular Hemoglobin 30.3 pg (28.0-34.0); Mean Platelet Volume 10.4 fL (7.4-10.4); Monocytes # 1.3 10^3/uL (0.2-0.9); Monocytes % 7.3 %; Neutrophils # 15.32 10^3/uL (1.8-7.7); Nucleated Red Blood Cells % 0 %; Platelet Count 384 10^3/cmm (130-400); Red Blood Count 2.54 10^6/uL (4.1-5.3); White Blood Count 18.3 10^3/uL (4.0-10.0)
[2022-06-25] MEDS: levoFLOXacin 750 mg Tablet PO (05:30)
[2022-06-25 05:45] LABS: Blood Urea Nitrogen 25 mg/dL (8-23); Carbon Dioxide 19 mmol/L (22-29); Glucose 145 mg/dL (65-115)
[2022-06-25 06:15] LABS: Glucose Point of Care 159 mg/dL (70-110)
[2022-06-25 06:35] LABS: Anion Gap 15.3 (5-19); Chloride 109 mmol/L (98-107); Osmolality Calculated 295 mOsm/kg (285-295); Potassium 4.3 mmol/L (3.5-5.1); Sodium 139 mmol/L (136-145)
[2022-06-25 08:00] VITALS: BP 145/66; PULSE 92; RESP 17; TEMP 36.8; O2SAT 90
[2022-06-25] MEDS: insulin lispro 100 unit/1 mL SUBCUT (09:16)
[2022-06-25] MEDS: lisinopril 20 mg Tablet 40 MG PO (09:16)
[2022-06-25] MEDS: gabapentin 300 mg Capsule PO ×2 (09:16→17:26)
[2022-06-25] MEDS: sennosides-docusate Tablet 2 TAB PO ×2 (09:16→17:25)
[2022-06-25] MEDS: polyethylene glycol 3350 Pkt 17 gm PO ×2 (09:16→17:25)
[2022-06-25] MEDS: amlodipine 10 mg Tablet PO (09:16)
[2022-06-25] MEDS: enoxaparin 30 mg/0.3 mL Syringe SUBCUT (09:19)
[2022-06-25 09:28] LABS: Hematocrit 25.7 % (42.0-52.0); Hemoglobin 7.9 g/dL (11.7-16.6)
--- NOTE | 2022-06-25 09:29 | PC.SOCIAL ---
IMM update IMM updated with patient. Verbalized an understanding. Copy Pg 2 provided. Initialled, dated, timed, and placed in chart.
--- NOTE | 2022-06-25 10:21 | P.PN_ITS ---
Subjective Subjective: This morning she has not notes nausea, did not endorse any overnight events He has finished three quarters of his GoLytely 1500 mL Small bowel movement reported by the nursing staff yesterday Vitals/I&O/Wt Last Vital Signs Temp 98.3 F 06/25/22 08:00 Pulse 92 06/25/22 08:00 Resp 17 06/25/22 08:00 BP 145/66 06/25/22 08:00 Pulse Ox 90 06/25/22 08:00 O2 Del Method 06/25/22 04:07 O2 Flow Rate 6 06/23/22 11:28 06/24/22 06/25/22 06/25/22 22:59 06:59 14:59 Intake Total 240 / 1253.75 Balance 240 / 1253.75 Physical Exam Narrative: Patient is awake and alert Hemodynamically stable Currently doing well room Pain is improved Abdomen soft, bowel sound present No active emesis Hard of hearing Right leg covered in dressing Patient is wearing adult diaper S1, S2 Data 06/25/22 09:00 06/25/22 04:56 A&P Assessment and plan (1) History of right below knee amputation: (2) Gangrene of right foot: (3) Constipation: (4) Postoperative anemia: Plan Severe constipation patient is getting GoLytely Repeat KUB Abdomen is soft Bowel sound present passing gas Small bowel movement yesterday Postop day 2 right BKA Patient will need senior living placement Phantom limb pain, he is getting gabapentin and opioids Postoperative anemia: Hemoglobin around 8, no need of blood transfusion Hemodynamically stable Gangrene of right leg discontinued IV antibiotics, no fever, persistent leukocytosis, currently is on Levaquin, Full code Clear liquid diet because of constipation DVT prophylaxis on board Attestations Medical Necessity Statement*: [facility] placement Time Spent in Patient Care: 40 Coding Level of Care Code Acute Restaurant Assistant Manager for jennifer Fwfranklin Diagnoses History of right below knee amputation Z89.511 Gangrene of right foot I96 Constipation K59.00 Postoperative anemia D64.9
--- NOTE | 2022-06-25 10:22 | XRR_ITS ---
PROCEDURE INFORMATION: Exam: XR Abdomen Exam date and time: 06/25/2022 2:10 PM Age: 86 years old Clinical indication: Abdominal pain; Generalized; Additional info: Constipation TECHNIQUE: Imaging protocol: Radiologic exam of the abdomen. Views: Frontal supine view of the abdomen. 1 View. COMPARISON: CR (ABDOMEN, ) 06/24/2022 11:13 AM FINDINGS: Gastrointestinal tract: There is a large amount of stool throughout the colon consistent with constipation. There is no bowel obstruction detected. Bones/joints: There are stable degenerative changes both hip joints. XR/XR KUB portable [id number] IMPRESSION: Bowel gas pattern consistent with constipation.
--- NOTE | 2022-06-25 11:34 | PC.OT ---
OT TREATMENT ATTEMPTED THIS A.M. PATIENT IS SLEEPING SOUNDLY. WILL ATTEMPT AGAIN AT A LATER TIME.
[2022-06-25 11:54] LABS: Glucose Point of Care 106 mg/dL (70-110)
[2022-06-25 12:00] VITALS: BP 138/85; PULSE 89; TEMP 36.9; O2SAT 91
[2022-06-25 15:49] VITALS: BP 120/63; PULSE 92; RESP 18; TEMP 37; O2SAT 91
[2022-06-25 17:19] LABS: Glucose Point of Care 132 mg/dL (70-110)
[2022-06-25 20:00] VITALS: BP 132/68; PULSE 92; RESP 17; TEMP 36.6; O2SAT 92
[2022-06-25 20:10] VITALS: RESP 16
[2022-06-25] MEDS: ondansetron 2 mg/ML SDV 2 mL 4 MG IVP (20:10)
[2022-06-25] MEDS: atorvastatin 40 mg Tablet 20 MG PO (20:10)
[2022-06-25] MEDS: oxyCODONE 5 mg IR Tab/Cap PO (20:10)
[2022-06-25 21:23] LABS: Glucose Point of Care 150 mg/dL (70-110)
[2022-06-26] VITALS (8 sets, daily range): BP systolic 107–143; BP diastolic 55–72; PULSE 74–88; RESP 16–18; TEMP 36.4–37.2; O2SAT 90–94
[2022-06-26 04:13] LABS: Basophils # 0.1 10^3/uL (0.0-0.1); Basophils % 0.3 %; Eosinophils # 0.1 10^3/uL (0.0-0.8); Eosinophils % 0.3 %; Hemoglobin 7.8 g/dL (11.7-16.6); Lymphocytes # 0.9 10^3/uL (0.8-4.8); Lymphocytes % 5.3 %; Mean Corpuscular HGB Conc 31.2 g/dL (30.0-36.0); Mean Corpuscular Hemoglobin 30.1 pg (28.0-34.0); Mean Corpuscular Volume 96.5 fl (80-94); Mean Platelet Volume 10.1 fL (7.4-10.4); Monocytes # 0.8 10^3/uL (0.2-0.9); Monocytes % 4.8 %; Neutrophils # 15.38 10^3/uL (1.8-7.7); Neutrophils % 87.8 %; Nucleated Red Blood Cells % 0 %; Platelet Count 379 10^3/cmm (130-400); Red Blood Count 2.59 10^6/uL (4.1-5.3); Red Cell Distribution Width 14.3 % (12.1-15.1); White Blood Count 17.5 10^3/uL (4.0-10.0)
[2022-06-26 04:36] LABS: Anion Gap 20.4 (5-19); Blood Urea Nitrogen 33 mg/dL (8-23); Calcium 7.8 mg/dL (8.5-10.5); Carbon Dioxide 20 mmol/L (22-29); Chloride 108 mmol/L (98-107); Glucose 156 mg/dL (65-115); Osmolality Calculated 308 mOsm/kg (285-295); Potassium 4.4 mmol/L (3.5-5.1); Sodium 144 mmol/L (136-145)
[2022-06-26 06:24] LABS: Glucose Point of Care 160 mg/dL (70-110)
--- NOTE | 2022-06-26 07:04 | PM.PN ---
Subjective Subjective: Hemoglobin stable however dropped since surgery Creatinine worsening Constipated Adequate urine output Afebrile Hemodynamically stable No significant bowel movement in last 24 hours Vitals/I&O/Wt Last Vital Signs Temp 97.9 F 06/26/22 04:00 Pulse 74 06/26/22 04:00 Resp 16 06/26/22 04:00 BP 119/64 06/26/22 04:00 Pulse Ox 90 06/26/22 04:00 O2 Del Method 06/25/22 04:07 O2 Flow Rate 6 06/23/22 11:28 06/25/22 06/26/22 06/26/22 22:59 06:59 14:59 Intake Total 240 / 600 120 / 720 Output Total 800 / 800 350 / 1150 Balance -560 / -200 -230 / -430 Physical Exam Narrative: Patient is hard of hearing Abdomen is soft Bowel sound present Currently doing well on room air Hemodynamically stable Right BKA covered in dressing No active signs of bleeding Pleasant and cooperative S1, S2 Doing well on room air Urine color is dark cola colored Urinary Catheter Management: Valdovinos: Cath Placed During This Visit: yes Reason for Continuing Indwelling Catheter: Other Urinary Catheter Date of Insertion: 06/25/22 Urinary Catheter Time of Insertion: 18:07 Data 06/26/22 04:00 06/26/22 04:00 A&P Assessment and plan (1) Postoperative anemia: (2) Constipation: (3) History of right below knee amputation: (4) Gangrene of right foot: (5) CRISTINO (acute kidney injury): Plan Right BKA Postoperative anemia noted Hemoglobin stable, hemodynamically stable Opioid-induced constipation Patient has not responded to GoLytely, no sign of obstruction no active emesis I will give him 1 dose of enema Acute kidney injury, nonoliguric, contrast-induced nephropathy, will give him Lasix renal stress test challenge Monitor urine output Patient is not ready to be discharged today Follow-up with case packer and sealer Full code DVT prophylaxis on hold Continue clear liquid diet Attestations Medical Necessity Statement*: Continue medical management Time Spent in Patient Care: 30 Coding Level of Care Code Acute Harvest Worker Fruit for Rosieg Fwd Diagnoses Postoperative anemia D64.9 Constipation K59.00 History of right below knee amputation Z89.511 Gangrene of right foot I96 CRISTINO (acute kidney injury) N17.9
[2022-06-26 08:13] LABS: Glucose Point of Care 169 mg/dL (70-110)
[2022-06-26] MEDS: insulin lispro 100 unit/1 mL SUBCUT ×2 (09:46→11:27)
[2022-06-26] MEDS: sennosides-docusate Tablet 2 TAB PO ×2 (09:46→17:16)
[2022-06-26] MEDS: amlodipine 10 mg Tablet PO (09:46)
[2022-06-26] MEDS: gabapentin 300 mg Capsule PO ×2 (09:46→17:16)
[2022-06-26] MEDS: polyethylene glycol 3350 Pkt 17 gm PO ×2 (09:46→17:16)
[2022-06-26] MEDS: lisinopril 20 mg Tablet 40 MG PO (09:46)
[2022-06-26] MEDS: FUROsemide 10 mg/mL SDV 2mL 20 MG IVP (10:48)
[2022-06-26 11:23] LABS: Glucose Point of Care 145 mg/dL (70-110)
[2022-06-26] MEDS: oxyCODONE 5 mg IR Tab/Cap PO (13:39)
[2022-06-26 16:40] LABS: Glucose Point of Care 98 mg/dL (70-110)
--- NOTE | 2022-06-26 18:09 | CTR_ITS ---
PROCEDURE INFORMATION: Exam: CT Abdomen And Pelvis Without Contrast Exam date and time: 06/26/2022 9:16 PM Age: 86 years old Clinical indication: Other: Zeferino; Patient HX: Persistent elevated wbc with rising creat over last several days. Admitted for infection to RT foot requiring amputation last week. TECHNIQUE: Imaging protocol: Computed tomography of the abdomen and pelvis without contrast. Radiation optimization: All CT scans at this facility use at least one of these dose optimization techniques: automated exposure control; mA and/or kV adjustment per patient size (includes targeted exams where dose is matched to clinical indication); or iterative reconstruction. COMPARISON: CR (ABDOMEN, ) 06/25/2022 2:10 PM RADIATION DOSE METRICS: Total DLP (mGy-cm): 252 FINDINGS: Tubes, catheters and devices: The urinary bladder is decompressed by catheter. Pleural spaces: Bilateral small pleural effusions are larger on the left with left lower lobe compressive atelectasis. Coronary arteries: Extensive calcified plaque in the coronary arteries. Liver: Normal. No mass. Gallbladder and bile ducts: Normal. No calcified stones. No ductal dilation. Pancreas: The pancreas is diffusely atrophic. In the pancreatic body there is a 1 cm thin walled cyst without accompanying ductal dilatation. The Spleen: Normal. No splenomegaly. Adrenal glands: Normal. No mass. Kidneys and ureters: Normal. No hydronephrosis. Stomach and bowel: Increased gas and fluid within the small bowel measuring up to 3.6 cm and with air-fluid levels. A transition zone o'clock occurs in the right mid abdomen within the distal jejunum indicating a partial small bowel obstruction. No wall thickening, perforation or visible mass. The terminal ileum is normal. Appendix: The appendix is normal. Increased fecal material within the distal colon measuring up to 6.2 cm. Intraperitoneal space: Unremarkable. No free air. No significant fluid collection. Vasculature: Unremarkable. No abdominal aortic aneurysm. Lymph nodes: Unremarkable. No enlarged lymph nodes. Urinary bladder: Unremarkable as visualized. Reproductive: Unremarkable as visualized. Bones/joints: Scattered degenerative changes in the lower lumbar spine including a prominent Schmorl's node at L4. Soft tissues: Unremarkable. CT/CT abdomen pelvis wo con [id number] IMPRESSION: 1. Partial distal small-bowel obstruction. No perforation or abscess. 2. 1 cm pancreatic body cyst. As seen without contrast this cyst has simple characteristics. Given the patient's age follow-up may not be necessary. 3. Bilateral pleural effusions are greater on the left. 4. Other chronic and incidental findings as described
[2022-06-26] MEDS: atorvastatin 40 mg Tablet 20 MG PO (20:13)
[2022-06-26 21:08] LABS: Glucose Point of Care 106 mg/dL (70-110)
[2022-06-27] VITALS (8 sets, daily range): BP systolic 102–122; BP diastolic 55–66; PULSE 74–83; RESP 15–18; TEMP 36.6–37; O2SAT 87–98
[2022-06-27 01:54] LABS: Basophils % 0.3 %; Eosinophils # 0.4 10^3/uL (0.0-0.8); Eosinophils % 2.7 %; Hematocrit 24.5 % (42.0-52.0); Hemoglobin 7.7 g/dL (11.7-16.6); Lymphocytes # 0.8 10^3/uL (0.8-4.8); Lymphocytes % 6.2 %; Mean Corpuscular HGB Conc 31.4 g/dL (30.0-36.0); Mean Corpuscular Hemoglobin 30.1 pg (28.0-34.0); Mean Corpuscular Volume 95.7 fl (80-94); Mean Platelet Volume 9.8 fL (7.4-10.4); Monocytes # 0.8 10^3/uL (0.2-0.9); Monocytes % 6.2 %; Neutrophils # 10.83 10^3/uL (1.8-7.7); Neutrophils % 83.4 %; Nucleated Red Blood Cells % 0 %; Platelet Count 361 10^3/cmm (130-400); Red Blood Count 2.56 10^6/uL (4.1-5.3)
[2022-06-27 02:17] LABS: Anion Gap 13.9 (5-19); Blood Urea Nitrogen 35 mg/dL (8-23); Calcium 7.7 mg/dL (8.5-10.5); Carbon Dioxide 24 mmol/L (22-29); Chloride 105 mmol/L (98-107); Glucose 137 mg/dL (65-115); Osmolality Calculated 298 mOsm/kg (285-295); Potassium 3.9 mmol/L (3.5-5.1); Sodium 139 mmol/L (136-145)
[2022-06-27] MEDS: levoFLOXacin 750 mg Tablet PO (05:55)
[2022-06-27 06:44] LABS: Glucose Point of Care 164 mg/dL (70-110)
--- NOTE | 2022-06-27 07:36 | US_ITS ---
WS: [id number] Chest ultrasound, 06/27/2022 Clinical Data: left soded thoracentesis Comparison: Portable chest, 06/23/2022 Findings: Right and left chest ultrasound revealed no free pleural fluid. US/US chest [id number] Impression: Negative for pleural fluid on either the right or left pleural space.
[2022-06-27] MEDS: sennosides-docusate Tablet 2 TAB PO ×2 (08:42→18:04)
[2022-06-27] MEDS: gabapentin 300 mg Capsule PO (08:42)
[2022-06-27] MEDS: polyethylene glycol 3350 Pkt 17 gm PO ×2 (08:42→18:04)
[2022-06-27] MEDS: insulin lispro 100 unit/1 mL SUBCUT (08:43)
[2022-06-27 12:03] LABS: Glucose Point of Care 105 mg/dL (70-110)
--- NOTE | 2022-06-27 12:24 | PM.PN ---
Subjective Subjective: Hemoglobin 7.7 600 mL urine output Urine color has improved to yellow instead of cola colored Fattening worsened to 1.7 1 bowel movement yesterday Patient is tolerating clear liquid diet, he has refused nasogastric tube placement Left a voicemail to his daughter Vitals/I&O/Wt Last Vital Signs Temp 97.8 F 06/27/22 11:37 Pulse 80 06/27/22 11:37 Resp 18 06/27/22 11:37 BP 102/62 06/27/22 11:37 Pulse Ox 94 06/27/22 11:37 O2 Del Method 06/27/22 11:37 O2 Flow Rate 0.5 06/27/22 03:31 06/26/22 06/27/22 06/27/22 22:59 06:59 14:59 Intake Total 240 / 360 480 / 480 Output Total 450 / 450 150 / 600 Balance -210 / -90 -150 / -240 480 / 480 Physical Exam Narrative: Valdovinos catheter draining concentrated urine Abdomen soft bowel sound present Currently on 1 to 2 L nasal cannula Verbally redirectable No significant confusion Pleasant during my evaluation Fatigued and lethargic Abdomen is not tender at all bedsheet soiled with fecal matter Urinary Catheter Management: Valdovinos: Cath Placed During This Visit: yes Reason for Continuing Indwelling Catheter: Other Urinary Catheter Date of Insertion: 06/25/22 Urinary Catheter Time of Insertion: 18:07 Data 06/27/22 01:44 06/27/22 01:44 Micro: Microbiology 06/26/22 16:00 Urine Culture - Preliminary Urine Catheterized 06/26/22 16:00 C.difficile Toxin B Gene (PCR) - Final Stool - Stool Aspirate A&P Assessment and plan (1) CRISTINO (acute kidney injury): (2) Postoperative anemia: (3) Constipation: (4) Partial bowel obstruction: Plan Partial small bowel obstruction Patient had 1 episode of bowel movement He was given enema yesterday Tolerating clear liquid diet I will keep him n.p.o. for now He has refused NG tube placement today No active emesis Abdomen is soft, bowel sound present Postoperative anemia hemoglobin is stable for now CRISTINO likely JYOTI Nonoliguric CRISTINO Patient was taking lisinopril Color has improved Requested urine sodium and electrolytes We will request nephro He was given Lasix renal stress test challenge yesterday Not ready to be transferred to the [facility] He has been accepted already clinical research manager updated Full code N.p.o. today Will discharge back to [facility] once creatinine starts improving and he starts having regular bowel movement Attestations Medical Necessity Statement*: Continue medical management Time Spent in Patient Care: 30 Coding Level of Care Code Acute Apprentice Cosmetologist for Chg F[employer] Diagnoses CRISTINO (acute kidney injury) N17.9 Postoperative anemia D64.9 Constipation K59.00 Partial bowel obstruction K56.600
[2022-06-27] MEDS: magnesium hydroxide 30 mL UDC 15 ML PO (12:38)
[2022-06-27] MEDS: acetaminophen 325 mg Tablet 650 MG PO (12:38)
[2022-06-27] MEDS: sodium chloride 0.9% 1,000 ML 75 ML IV (12:41)
[2022-06-27 13:09] LABS: Potassium, Radom Urine 60 mmol/L; Urine Random Sodium 39 mmol/L
[2022-06-27 13:14] LABS: Creatinine Urine, Random 178 mg/dL (39-259)
[2022-06-27 13:15] LABS: Urine Random Chloride 16 mmol/L
[2022-06-27 13:33] LABS: Microalbum Creatinine Ratio Ur 680 mg/dL (0-20); Microalbumin Random Urine 121 ug/dL (0-20)
[2022-06-27 14:56] LABS: Eosinophil Urine No Eosinophils Seen; Urine Eosinophil Count 0 (0-0)
[2022-06-27 15:48] LABS: Basophils # 0.1 10^3/uL (0.0-0.1); Basophils % 0.5 %; Eosinophils # 0.3 10^3/uL (0.0-0.8); Eosinophils % 2.6 %; Hemoglobin 7.2 g/dL (11.7-16.6); Lymphocytes # 0.6 10^3/uL (0.8-4.8); Lymphocytes % 5.1 %; Mean Corpuscular HGB Conc 31.3 g/dL (30.0-36.0); Mean Corpuscular Hemoglobin 30.6 pg (28.0-34.0); Mean Corpuscular Volume 97.9 fl (80-94); Mean Platelet Volume 10.1 fL (7.4-10.4); Monocytes # 0.7 10^3/uL (0.2-0.9); Monocytes % 6.1 %; Neutrophils # 9.87 10^3/uL (1.8-7.7); Neutrophils % 84.3 %; Nucleated Red Blood Cells % 0 %; Platelet Count 334 10^3/cmm (130-400); Red Blood Count 2.35 10^6/uL (4.1-5.3); Red Cell Distribution Width 14.2 % (12.1-15.1); White Blood Count 11.7 10^3/uL (4.0-10.0)
--- NOTE | 2022-06-27 17:01 | PM.PN ---
Subjective Subjective: No significant pain. Confused and no complaint Vitals/I&O/Wt Last Vital Signs Temp 98.6 F 06/27/22 15:33 Pulse 76 06/27/22 15:40 Resp 18 06/27/22 11:37 BP 105/57 06/27/22 15:33 Pulse Ox 96 06/27/22 15:40 O2 Del Method 06/27/22 15:40 O2 Flow Rate 2 06/27/22 15:40 06/27/22 06/27/22 06/27/22 06:59 14:59 22:59 Intake Total 480 / 480 Output Total 150 / 600 950 / 950 Balance -150 / -240 -470 / -470 Physical Exam Narrative: His right knee incision clean and free of drainage. Minimal swelling. Urinary Catheter Management: Valdovinos: Cath Placed During This Visit: yes Reason for Continuing Indwelling Catheter: Other Urinary Catheter Date of Insertion: 06/25/22 Urinary Catheter Time of Insertion: 18:07 Data 06/27/22 15:40 06/27/22 01:44 Micro: Microbiology 06/26/22 16:00 Urine Culture - Preliminary Urine Catheterized 06/26/22 16:00 C.difficile Toxin B Gene (PCR) - Final Stool - Stool Aspirate A&P Assessment and plan (1) History of right below knee amputation: Right lower extremity incision looks clean. 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
[2022-06-27 17:59] LABS: Glucose Point of Care 144 mg/dL (70-110)
[2022-06-27 20:29] LABS: Glucose Point of Care 176 mg/dL (70-110)
[2022-06-28] VITALS (10 sets, daily range): BP systolic 125–136; BP diastolic 58–72; PULSE 77–95; RESP 15–18; TEMP 36.6–36.9; O2SAT 90–97
[2022-06-28 01:06] LABS: Basophils % 0.3 %; Eosinophils # 0.2 10^3/uL (0.0-0.8); Eosinophils % 1.9 %; Hematocrit 23.1 % (42.0-52.0); Hemoglobin 7.2 g/dL (11.7-16.6); Lymphocytes # 0.7 10^3/uL (0.8-4.8); Lymphocytes % 6.8 %; Mean Corpuscular HGB Conc 31.2 g/dL (30.0-36.0); Mean Corpuscular Hemoglobin 29.6 pg (28.0-34.0); Mean Corpuscular Volume 95.1 fl (80-94); Monocytes # 0.5 10^3/uL (0.2-0.9); Monocytes % 5.2 %; Neutrophils # 8.54 10^3/uL (1.8-7.7); Neutrophils % 83.9 %; Nucleated Red Blood Cells % 0 %; Platelet Count 343 10^3/cmm (130-400); Red Blood Count 2.43 10^6/uL (4.1-5.3); White Blood Count 10.2 10^3/uL (4.0-10.0)
[2022-06-28 01:35] LABS: Anion Gap 16.2 (5-19); Blood Urea Nitrogen 34 mg/dL (8-23); Calcium 7.8 mg/dL (8.5-10.5); Carbon Dioxide 22 mmol/L (22-29); Chloride 104 mmol/L (98-107); Glucose 137 mg/dL (65-115); Osmolality Calculated 296 mOsm/kg (285-295); Potassium 4.2 mmol/L (3.5-5.1); Sodium 138 mmol/L (136-145)
[2022-06-28] MEDS: sodium chloride 0.9% (100 ml) 100 ML 50 ML (03:03)
--- NOTE | 2022-06-28 05:49 | PC.NURSE ---
Patient was administered a milk and molasses enema this am per as needed orders. The return did include a moderate amount of loose stool.
[2022-06-28 06:34] LABS: Glucose Point of Care 164 mg/dL (70-110)
[2022-06-28] MEDS: insulin lispro 100 unit/1 mL SUBCUT (08:50)
[2022-06-28] MEDS: sennosides-docusate Tablet 2 TAB PO (08:50)
[2022-06-28] MEDS: polyethylene glycol 3350 Pkt 17 gm PO (08:50)
[2022-06-28 10:01] LABS: Iron 20 ug/dL (59-158); Percent Saturation 19.6 % (20-50); Total Iron Binding Capacity 102 mcg/dl; Unsaturated Iron Binding 82 ug/dL (112-347); Vitamin B12 159 pg/mL (232-1245)
--- NOTE | 2022-06-28 10:22 | P.DS_ITS ---
Discharge Providers Date of Admission: 06/22/22 21:46 Date of Discharge: June 28, 2022 Attending Provider at Admission: Dwight Bravo MD Attending Provider at Discharge: Sergio Arnold MD Primary Care Provider: Becky Moon DO Diagnoses at Discharge Discharge Diagnosis (1) History of right below knee amputation: Status: Acute Reason for Visit Reason for Visit: foot infection Hospital Course Hospital Course 86-year-old male who has history of left leg below-knee amputation presented with worsening of right foot gangrene, Dr. Li was consulted, status post right BKA 06/23, postoperatively patient developed constipation and CRISTINO related to JYOTI, creatinine has stabilized at 1.7, he is nonoliguric making more than a liter a day with fluid and Lasix renal stress test. Lisinopril was held. Postoperatively noticed drop in hemoglobin however no active bleeding was noted. He was given 1 unit PRBC on 06/27. He remained hemodynamically stable. Patient had partial small bowel obstruction likely related to severe constipation however he was tolerating his diet had couple of small bowel movements with the help of GoLytely 1500 mL, senna S and enemas. Patient is stating that he is not experiencing any abdominal pain abdomen is soft he is hungry he wants to eat he is passing gas. His leukocytosis after surgery remained around 17,000 however it has trended down gradually to 10,000 at the time of discharge. Is been accepted at [facility]. He is doing well on room air, he required 2 L after his surgery however chest x-ray did not show any significant pathological changes, there was concern for pleural effusion however there is not enough fluid to be drained. He will be given an aggressive bowel regimen at the time of discharge. Patient had 1 large bowel movement on 06/28 after the enema He has low vitamin B12, low iron Hemoglobin at the time of discharge 9.6 Physical Exam Narrative: Valdovinos catheter draining concentrated urine Abdomen soft, positive bowel sound, nontender, no signs of peritonitis Saturating well Room air, Awake and alert No significant confusion Pleasant during my evaluation Fatigued and lethargic Abdomen is not tender at all bedsheet soiled with fecal matter Urinary Catheter Management: Valdovinos: Cath Placed During This Visit: yes Reason for Continuing Indwelling Catheter: Other Urinary Catheter Date of Insertion: 06/25/22 Urinary Catheter Time of Insertion: 18:07 Discharge Data Studies Completed and Pending Completed Studies During Hospitalization Category Date Time Status CT abdomen pelvis wo con [id number] Routine Cat Scan 06/26/22 18:[address] foot RT w con [id number] Stat Cat Scan 06/22/22 19:57 Completed XR KUB portable [id number] Routine Exams 06/25/22 10:22 Completed XR KUB portable [id number] Routine Exams 06/24/22 10:45 Completed XR chest 1V portable [id number] Routine Exams 06/22/22 23:08 [place] [id number] Routine Ultrasound 06/23/22 23:08 Completed US chest [id number] Routine Ultrasound 06/27/22 07:36 Completed Pending at discharge Category Date Time Status Basic Metabolic Panel AM LABS Lab 06/29/22 04:00 Ordered Cell Count w Diff Pleural Fld Routine Lab 06/27/22 07:36 Uncollected Complete Blood Count w/Auto AM LABS Lab 06/29/22 04:00 Ordered Cyto Order Verification Routine Lab 06/27/22 07:36 Ordered Glucose Pleural Fluid Routine Lab 06/27/22 07:36 Uncollected Hemoglobin and Hematocrit Stat Lab 06/28/22 10:21 Ordered LDH Pleural Fluid Routine Lab 06/27/22 07:36 Uncollected Pleural [Left Pleural Fluid Analysis] Routine Lab 06/27/22 07:36 Uncollected Urine Culture Routine Lab 06/26/22 16:00 Results pH Pleural Fluid Routine Lab 06/27/22 07:36 Uncollected Pathology: Surgical [PTH] Routine Pth 06/23/22 11:20 Received Radiology Impressions Foot CT 06/22/22 19:57 IMPRESSION: Soft tissue ulcers of 1st, 2nd, 3rd digits with 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 Chest X-Ray 06/22/22 23:08 IMPRESSION: 1. Large heart with atherosclerosis and mild COPD. 2. Left lung base atelectasis, scarring, or small airspace disease. KUB X-Ray 06/25/22 10:22 IMPRESSION: Bowel gas pattern consistent with constipation. Abdomen/Pelvis CT 06/26/22 18:09 IMPRESSION: 1. Partial distal small-bowel obstruction. No perforation or abscess. 2. 1 cm pancreatic body cyst. As seen without contrast this cyst has simple characteristics. Given the patient's age follow-up may not be necessary. 3. Bilateral pleural effusions are greater on the left. 4. Other chronic and incidental findings as described Chest Ultrasound 06/27/22 07:36 Impression: Negative for pleural fluid on either the right or left pleural space. Laboratory Results WBC 10.2 10^3/uL (4.0-10.0) H 06/28/22 00:49 RBC 2.43 10^6/uL (4.1-5.3) L 06/28/22 00:49 Hgb 7.2 g/dL (11.7-16.6) L 06/28/22 00:49 Hct 23.1 % (42.0-52.0) L 06/28/22 00:49 MCV 95.1 fl (80-94) H 06/28/22 00:49 MCH 29.6 pg (28.0-34.0) 06/28/22 00:49 MCHC 31.2 g/dL (30.0-36.0) 06/28/22 00:49 RDW 14.0 % (12.1-15.1) 06/28/22 00:49 Plt Count 343 10^3/cmm (130-400) 06/28/22 00:49 MPV 10.0 fL (7.4-10.4) 06/28/22 00:49 Neut % (Auto) 83.9 % 06/28/22 00:49 Lymph % (Auto) 6.8 % 06/28/22 00:49 [place] % (Auto) 5.2 % 06/28/22 00:49 Eos % (Auto) 1.9 % 06/28/22 00:49 Baso % (Auto) 0.3 % 06/28/22 00:49 Neut # (Auto) 8.54 10^3/uL (1.8-7.7) H 06/28/22 00:49 Lymph # (Auto) 0.7 10^3/uL (0.8-4.8) L 06/28/22 00:49 [place] # (Auto) 0.5 10^3/uL (0.2-0.9) 06/28/22 00:49 Eos # (Auto) 0.2 10^3/uL (0.0-0.8) 06/28/22 00:49 Baso # (Auto) 0.0 10^3/uL (0.0-0.1) 06/28/22 00:49 Nucleated RBC % (auto) 0 % 06/28/22 00:49 Nucleated RBCs # 0.0 /100WBC 06/28/22 00:49 ESR 49 mm/hr (0-10) H 06/22/22 20:15 Sodium 138 mmol/L (136-145) 06/28/22 00:49 Potassium 4.2 mmol/L (3.5-5.1) 06/28/22 00:49 Chloride 104 mmol/L (98-107) 06/28/22 00:49 Carbon Dioxide 22 mmol/L (22-29) 06/28/22 00:49 Anion Gap 16.2 (5-19) 06/28/22 00:49 BUN 34 mg/dL (8-23) H 06/28/22 00:49 Creatinine 1.7 mg/dL (0.7-1.2) H 06/28/22 00:49 GFR Calculation Not Reportable 06/28/22 00:49 Glucose 137 mg/dL (65-115) H 06/28/22 00:49 POC Glucose 164 mg/dL (70-110) H 06/28/22 06:26 Estimat Average Glucose 174 06/22/22 20:15 Hemoglobin A1c 7.7 % (4.0-6.0) H 06/22/22 20:15 Calculated Osmolality 296 mOsm/kg (285-295) H 06/28/22 00:49 Lactate 1.3 mmol/L (0.5-2.2) 06/22/22 20:15 Calcium 7.8 mg/dL (8.5-10.5) L 06/28/22 00:49 Magnesium 1.6 mg/dL (1.7-2.3) L 06/23/22 03:37 Iron 20 ug/dL (59-158) L 06/28/22 00:49 TIBC 102 mcg/dl 06/28/22 00:49 % Saturation 19.6 % (20-50) L 06/28/22 00:49 Unsat Iron Binding 82 ug/dL (112-347) L 06/28/22 00:49 Total Bilirubin 0.3 mg/dL (0.15-1.2) 06/22/22 20:15 AST 9 U/L (0-40) 06/22/22 20:15 ALT 7 U/L (0-41) 06/22/22 20:15 Alkaline Phosphatase 75 U/L (40-130) 06/22/22 20:15 Troponin T Baseline 92 ng/L (0-15) H 06/22/22 20:15 Troponin T 120 Minute 84.01 ng/L (0-15) H 06/23/22 01:08 Delta Troponin T -7.99 ABS# (0-10) L 06/23/22 01:08 Troponin T Hi Sens 6Hr 90.86 ng/L (0-15) H 06/23/22 03:37 Troponin T Hi Sens 6Hr Delta -1.14 ng/L (0-12) L 06/23/22 03:37 C-Reactive Protein 37.4 mg/L (0.0-4.9) H 06/22/22 20:15 NT-Pro-B Natriuret Pep 1892 pg/mL (0-450) H 06/22/22 20:15 Total Protein 6.4 g/dL (6.6-8.7) L 06/22/22 20:15 Albumin 3.1 g/dL (3.5-5.2) L 06/22/22 20:15 Globulin 3.3 g/dL (1.3-4.6) 06/22/22 20:15 Triglycerides 144 mg/dL (0-150) 06/22/22 20:15 Cholesterol 107 mg/dL (0-200) 06/22/22 20:15 LDL Cholesterol, Calc 44 mg/dL (50-129) L 06/22/22 20:15 HDL Cholesterol 34 mg/dL (60-100) L 06/22/22 20:15 LDL/HDL Ratio 1.29 RATIO (0.00-3.22) 06/22/22 20:15 Cholesterol/HDL Ratio 3.15 mg/dL (1.0-5.00) 06/22/22 20:15 Vitamin B12 159 pg/mL (232-1245) L 06/28/22 00:49 Procalcitonin 0.12 ng/mL (0-0.5) 06/22/22 20:15 TSH 1.15 uIU/mL (0.27-4.20) 06/22/22 20:15 Ur Eosinophil Smear 0 (0-0) 06/27/22 12:26 Urine Eosinophils No eosinophils seen 06/27/22 12:26 Ur Random Microalbumin 121 ug/dL (0-20) H 06/27/22 12:26 Ur Random Sodium 39 mmol/L 06/27/22 12:26 Ur Random Potassium 60 mmol/L 06/27/22 12:26 Ur Random Chloride 16 mmol/L 06/27/22 12:26 Urine Creatinine 178 mg/dL (39-259) 06/27/22 12:26 Microalb/Creat Ratio 680 mg/dL (0-20) H 06/27/22 12:26 Blood Type A Positive 06/28/22 00:49 Rho(D) Type Positive 06/28/22 00:49 Antibody Screen Negative 06/28/22 00:49 Crossmatch See Detail 06/28/22 00:49 Vitals Last Vital Signs Temp 97.8 F 06/28/22 08:00 Pulse 95 06/28/22 08:00 Resp 18 06/28/22 08:00 BP 132/70 06/28/22 08:00 Pulse Ox 90 06/28/22 08:00 O2 Del Method 06/28/22 08:00 O2 Flow Rate 2 06/28/22 07:31 Discharge Plan Discharge Patient Disposition: Xfer SNF Condition: Stable Prescriptions: New sennosides-docusate sodium [Senna-S] 8.6-50 mg tablet 1 tab-cap PO DAILY Qty: 60 0RF ferrous sulfate [Feosol] 325 mg (65 mg iron) tablet 325 mg PO DAILY Qty: 60 0RF hydralazine 25 mg tablet 25 mg PO BID Qty: 60 0RF cyanocobalamin (vitamin B-12) 100 mcg tablet 100 mcg PO DAILY Qty: 60 0RF polyethylene glycol 3350 [Miralax] 17 gram/dose powder 4 g PO DAILY Qty: 119 0RF Continued atenolol 100 mg tablet 100 mg PO DAILY amlodipine 10 mg tablet 10 mg PO DAILY simvastatin 20 mg tablet 20 mg PO QPM montelukast 10 mg tablet 10 mg PO DAILY pioglitazone 30 mg tablet 30 mg PO DAILY Tradjenta 5 mg tablet 5 mg PO DAILY Discontinued lisinopril 40 mg tablet 40 mg PO BID glipizide 5 mg tablet 5 mg PO QID Discharge Orders: Discharge Order (Routine); Ordered 06/28/22 Ordered By: Sergio Arnold Referrals: Becky Moon DO [Primary Care Provider] - Discharge Attestations Time Spent in Discharge Care*: less than 30 min Quality Metrics Clinical Quality Measures [ No reported AMI, CVA or VTE this stay] Coding Level of Care Code Acute g [facility] note Diagnoses History of right below knee amputation Z89.511
[2022-06-28 10:42] LABS: Hematocrit 30.1 % (42.0-52.0); Hemoglobin 9.6 g/dL (11.7-16.6)
[2022-06-28 12:11] LABS: Glucose Point of Care 100 mg/dL (70-110)
[2022-06-28 12:45] LABS: SARS Covid-2 Antigen negative (Negative)
--- NOTE | 2022-06-28 14:26 | P.PN_ITS ---
Subjective Subjective: No significant pain. No acute issues Vitals/I&O/Wt Last Vital Signs Temp 98.5 F 06/28/22 12:00 Pulse 83 06/28/22 12:00 Resp 18 06/28/22 12:00 BP 127/58 06/28/22 12:00 Pulse Ox 90 06/28/22 12:00 O2 Del Method 06/28/22 12:00 O2 Flow Rate 2 06/28/22 07:31 06/27/22 06/28/22 06/28/22 22:59 06:59 14:59 Intake Total 250 / 730 450 / 1180 120 / 120 Output Total 350 / 1300 Balance -100 / -570 450 / -120 120 / 120 Physical Exam Narrative: Right below-knee amputation dressing clean and dry Urinary Catheter Management: Valdovinos: Cath Placed During This Visit: yes Reason for Continuing Indwelling Catheter: Other Urinary Catheter Date of Insertion: 06/25/22 Urinary Catheter Time of Insertion: 18:07 Data 06/28/22 10:33 06/28/22 00:49 Micro: Microbiology 06/26/22 16:00 Urine Culture - Final Urine Catheterized 06/22/22 20:31 Blood Culture - Final Blood NO GROWTH AFTER 5 DAYS 06/22/22 20:28 Blood Culture - Final Blood NO GROWTH AFTER 5 DAYS A&P Assessment and plan (1) History of right below knee amputation: Continue therapy. 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
== END 2022-06-28 14:26 | disposition skilled nursing facility (03) | DRG 240 ==
LOC: ER 21:18 → MEDSURG 21:46
PROVIDERS: Orthopaedic Surgery; Admitting Provider Family Medicine; Emergency Provider Emergency Medicine; PCP Family Medicine; Visit Provider Internal Medicine
PROC: 0Y6H0Z1 Detachment at Right Lower Leg, High, Open Approach (ICD-10-PCS; CPT 27880; principal; 2022-06-23 09:30)
DX: E11.52 Type 2 diabetes mellitus with diabetic peripheral angiopathy with gangrene (principal); D62 Acute posthemorrhagic anemia; I96 Gangrene, not elsewhere classified; M86.9 Osteomyelitis, unspecified; N17.9 Acute kidney failure, unspecified; K56.600 Partial intestinal obstruction, unspecified as to cause; E11.69 Type 2 diabetes mellitus with other specified complication; Z89.512 Acquired absence of left leg below knee; K59.03 Drug induced constipation; T50.7X5A Adverse effect of analeptics and opioid receptor antagonists, initial encounter; N14.11 Contrast-induced nephropathy; T50.8X5A Adverse effect of diagnostic agents, initial encounter; H90.3 Sensorineural hearing loss, bilateral; I10 Essential (primary) hypertension
CPT/HCPCS: 36415; 36416; 36430; 51702; 70450; 71045; 73701; 74018; 74176; 74177; 76604; 80048; 80053; 80061; 81001; 82044; 82436; 82607; 82962; 83036; 83540; 83550; 83605; 83735; 83880; 84133; 84145; 84300; 84443; 84484; 85014; 85018; 85025; 85651; 85999; 86140; 86850; 86900; 86920; 87040; 87086; 87426; 87493; 88307; 88311; 93005; 93925; 94664; 96365; 96372; 97110; 97161; 97167; 97530; 97535; 99285; C9113; J0330; J1580; J1644; J1650; J1815; J1940; J2185; J2270; J2405; J2704; J3010; J3370; J7030; J7050; P9016; P9045; Q9967

== ENCOUNTER 2022-06-28 19:31 | Emergency (ER) | payer MEDICARE, MEDICAID, SELFPAY ==
[2022-06-28 19:42] VITALS: BP 147/62; PULSE 91; RESP 22; TEMP 37; O2SAT 93
--- NOTE | 2022-06-28 19:43 | CTR_ITS ---
PROCEDURE INFORMATION: Exam: CT Abdomen And Pelvis With Contrast Exam date and time: 06/28/2022 8:52 PM Age: 86 years old Clinical indication: Abdominal pain; Additional info: Abd pain, TECHNIQUE: Imaging protocol: Computed tomography of the abdomen and pelvis with contrast. Radiation optimization: All CT scans at this facility use at least one of these dose optimization techniques: automated exposure control; mA and/or kV adjustment per patient size (includes targeted exams where dose is matched to clinical indication); or iterative reconstruction. Contrast material: OMNIPAQUE 350; Contrast volume: 75 ml; Contrast route: INTRAVENOUS (IV); COMPARISON: CT abdomen pelvis wo con [id number] 06/26/2022 9:16 PM RADIATION DOSE METRICS: Total DLP (mGy-cm): 1192.86 FINDINGS: Limitations: Study somewhat limited due to streak artifact created by the patient being scanned with the arms at the sides. Lungs: There is compressive atelectasis in both lower lobes. Pleural spaces: There is small right and moderate left pleural effusion. Coronary arteries: There is moderate atherosclerotic calcification of the coronary arteries. Liver: There is no focal abnormality within the liver. Gallbladder and bile ducts: The gallbladder is normal. Pancreas: Pancreas is severely atrophic. 11 mm cystic lesion in the tail of the pancreas not significantly changed.The kidneys are normal. Spleen: The spleen demonstrates punctate calcifications, consistent with remote granulomatous organism exposure. Adrenal glands: The adrenal glands are normal. Kidneys and ureters: There is no evidence of hydronephrosis. There is no evidence of renal or ureteral calcifications. Stomach and bowel: There is no evidence of colitis/diverticulitis. Small bowel dilatation has resolved compared with the examination of 06/26/2022. Appendix: There is focal thickening of the distal tip of the appendix measuring up to 13 mm with mild adjacent stranding. Early uncomplicated tip appendicitis not excluded. Please correlate with clinical findings. Intraperitoneal space: There is no evidence of free intraperitoneal fluid. Vasculature: The aorta demonstrates moderate atherosclerotic calcification. There is no evidence of an abdominal aortic aneurysm. Lymph nodes: There is some calcified hilar lymph nodes in keeping with old granulomatous disease. There is no evidence of lymphadenopathy. Urinary bladder: There is mild thickening of the urinary bladder wall, probably due to muscular hypertrophy. Small amount of air is seen within the urinary bladder presumably from recent catheterization. Reproductive: The prostate demonstrates moderate nonspecific enlargement. The seminal vesicles are normal. Bones/joints: There is mild lumbar scoliosis concave to the right. The lumbar spine demonstrates moderate degenerative changes at multiple levels. Soft tissues: There are small bilateral inguinal hernias containing only fat. CT/CT abdomen pelvis w con* [id number] IMPRESSION: 1. Borderline appendix with question of possible early appendicitis. 2. Bilateral pleural effusions not significantly changed. 3. 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 4. Other chronic findings as described above.
--- NOTE | 2022-06-28 19:43 | XRR_ITS ---
PROCEDURE INFORMATION: Exam: XR Chest Exam date and time: 06/28/2022 7:56 PM Age: 86 years old Clinical indication: Other: AMS TECHNIQUE: Imaging protocol: Radiologic exam of the chest. Views: 1 view. COMPARISON: CR (CHEST, ) 06/23/2022 2:08 AM FINDINGS: Lungs: There is consolidation or atelectasis in the retrocardiac left lower lobe. This is not changed from previous. Visualized portions of the right lung are clear. Pleural spaces: There is small left pleural effusion Heart/Mediastinum: The heart is mildly enlarged. Bones/joints: Unremarkable. XR/XR chest 1V portable [id number] IMPRESSION: Left pleural effusion and left lower lobe atelectasis not changed compared with 06/23/2022.
--- NOTE | 2022-06-28 19:45 | W.ED.GENADLT ---
HPI - General Adult General: Chief complaint: General Medical Stated complaint: AMS, possible bowel obstruction Time Seen by Provider: 06/28/22 19:36 Source: patient and EMS Mode of arrival: EMS Limitations: altered mental status History of Present Illness: 86-year-old male who was just discharged from here after BKA he just got [facility] long-term they state they took his blood pressure and was in the 70s its normal here is 147/60 they state they also took his catheter out he had feces on the tip of the catheter. Patient does have come some confusion at baseline he has no complaints he is afebrile he denies any pain anywhere. Review of Systems General: Reports: ROS unobtainable due to mental status PFSH ED PFSH: Medical History History of hypertension History of type 2 diabetes mellitus No pertinent past medical history Surgical History History of below knee amputation Left Family History Mother Diabetes Father CAD (coronary artery disease) Social History Smoking and tobacco status: never smoked Alcohol intake: never Physical Exam Const: COMMON NORMALS: no acute distress, healthy appearing and alert; negative for patient oriented x3 ORIENTATION/CONSCIOUSNESS: Yes oriented to person; not oriented to place and not oriented to time HENMT: COMMON NORMALS: normocephalic and atraumatic HEAD & SCALP: normocephalic and atraumatic Eye: COMMON NORMALS: Equal, round and reactive pupils present and EOMs intact bilaterally PUPIL: Yes Equal, round and reactive pupils present Neck/C-Spine: COMMON NORMALS: full ROM and supple Chest: COMMONS NORMALS: normal inspection of the chest and normal palpation of entire chest wall Resp: COMMON NORMALS: normal respiratory effort, No retractions, No use of accessory muscles and clear to auscultation bilaterally AUSCULTATION: clear to auscultation bilaterally Cardio: COMMON NORMALS: regular rate, regular rhythm and No murmurs present (Cardio) RATE: regular rate RHYTHM: regular rhythm GI: COMMON NORMALS: Normal to inspection, nondistended, normoactive bowel sounds present, Soft to palpation, non-tender and no masses PALPATION: Yes Soft to palpation Extremity: COMMON NORMALS: normal to inspection and full ROM Neuro: COMMON NORMALS: moves all extremities and no focal motor deficits; negative for patient oriented x3 SENSORIUM/ORIENTATION: Yes alert, Yes oriented to person, No oriented to place and No oriented to time Psych: COMMON NORMALS: mental status grossly normal, Normal thought process present and cooperative THOUGHT PROCESS: Normal thought process present Skin: COMMON NORMALS: no rashes or lesions noted and no wounds GENERAL SKIN EXAM: no rashes or lesions noted Course Vital Signs: Vital signs: Vital Signs Temperature 98.6 F 06/28/22 19:42 Pulse Rate 91 06/28/22 19:42 Respiratory Rate 22 H 06/28/22 19:42 Blood Pressure 124/65 06/28/22 23:10 Pulse Oximetry 93 06/28/22 19:42 Oxygen Delivery Me thod 06/28/22 19:42 Oxygen Flow Rate 2 06/28/22 19:42 MDM - General Adult Medical Decision Making Patient presents here with concern that he had stool on his Valdovinos Minerva monitor creatinine probably drug-induced to be replaced Valdovinos has no stones bladder CT scan shows nice signs of a fistula I did read a possible early appendicitis I did multiple abdominal exams he has no tenderness on his right lower quadrant no complaints of abdominal pain he is stable for discharge back to the long-term. Lab Data 06/28/22 20:44 06/28/22 20:44 Radiology Impressions Abdomen/Pelvis CT 06/28/22 19:43 IMPRESSION: 1. Borderline appendix with question of possible early appendicitis. 2. Bilateral pleural effusions not significantly changed. 3. 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 4. Other chronic findings as described above. ADDENDUM: 06/28/222152 Get addendumTHIS REPORT CONTAINS FINDINGS THAT MAY BE CRITICAL TO PATIENT CARE. The findings were verbally communicated via telephone conference with Dr. Munoz at 9:50 PM OBSERVATION ASSISTANT on 06/28/2022. The findings were acknowledged and understood. Chest X-Ray 06/28/22 19:43 IMPRESSION: Left pleural effusion and left lower lobe atelectasis not changed compared with 06/23/2022. Head CT 06/28/22 19:47 IMPRESSION: 1. Atrophy and chronic ischemic changes and old right parietal infarct. 2. No acute finding. Laboratory Results WBC 12.8 10^3/uL (4.0-10.0) H 06/28/22 20:44 RBC 3.16 10^6/uL (4.1-5.3) L 06/28/22 20:44 Hgb 9.4 g/dL (11.7-16.6) L 06/28/22 20:44 Hct 28.8 % (42.0-52.0) L 06/28/22 20:44 MCV 91.1 fl (80-94) 06/28/22 20:44 MCH 29.7 pg (28.0-34.0) 06/28/22 20:44 MCHC 32.6 g/dL (30.0-36.0) 06/28/22 20:44 RDW 14.5 % (12.1-15.1) 06/28/22:44 Plt Count 388 10^3/cmm (130-400) 06/28/22:44 MPV 10.4 fL (7.4-10.4) 06/28/22 20:44 Neut % (Auto) 86.4 % 06/28/22:44 Lymph % (Auto) 6.2 % 06/28/22:44 [place] % (Auto) 4.9 % 06/28/22:44 Eos % (Auto) 0.8 % 06/28/22 20:44 Baso % (Auto) 0.3 % 06/28/22:44 Neut # (Auto) 11.10 10^3/uL (1.8-7.7) H 06/28/22:44 Lymph # (Auto) 0.8 10^3/uL (0.8-4.8) 06/28/22 20:44 [place] # (Auto) 0.6 10^3/uL (0.2-0.9) 06/28/22 20:44 Eos # (Auto) 0.1 10^3/uL (0.0-0.8) 06/28/22 20:44 Baso # (Auto) 0.0 10^3/uL (0.0-0.1) 06/28/22:44 Nucleated RBC % (auto) 0 % 06/28/22:44 Nucleated RBCs # 0.0 /100WBC 06/28/22 20:44 Sodium 138 mmol/L (136-145) 06/28/22 21:28 Potassium 4.4 mmol/L (3.5-5.1) 06/28/22 21:28 Chloride 104 mmol/L (98-107) 06/28/22 21:28 Carbon Dioxide 21 mmol/L (22-29) L 06/28/22 21:28 Anion Gap 17.4 (5-19) 06/28/22 21:28 BUN 32 mg/dL (8-23) H 06/28/22 21:28 Creatinine 1.3 mg/dL (0.7-1.2) H 06/28/22 21:28 GFR Calculation Not Reportable 06/28/22 21:28 Glucose 172 mg/dL (65-115) H 06/28/22 21:28 Calculated Osmolality 297 mOsm/kg (285-295) H 06/28/22 21:28 Calcium 8.3 mg/dL (8.5-10.5) L 06/28/22 21:28 Total Bilirubin 0.6 mg/dL (0.15-1.2) 06/28/22 21:28 AST 25 U/L (0-40) 06/28/22 21:28 ALT 15 U/L (0-41) 06/28/22 21:28 Alkaline Phosphatase 63 U/L (40-130) 06/28/22 21:28 Total Protein 5.6 g/dL (6.6-8.7) L 06/28/22 21:28 Albumin 2.8 g/dL (3.5-5.2) L 06/28/22 21:28 Globulin 2.8 g/dL (1.3-4.6) 06/28/22 21:28 Urine Color Yellow (Yellow) 06/28/22 21:50 Urine Appearance Sl hazy (CLEAR) A 06/28/22 21:50 Urine pH 5 (5-7) 06/28/22 21:50 Ur Specific [place] 1.015 (1.005-1.030) 06/28/22 21:50 Urine Protein 1+ (Negative) H 06/28/22 21:50 Urine Glucose (UA) Norm (Normal) 06/28/22 21:50 Urine Ketones 1+ (Negative) H 06/28/22 21:50 Urine Blood 3+ (Negative) H 06/28/22 21:50 Urine Nitrate Negative (Negative) 06/28/22 21:50 Urine Bilirubin Neg (Negative) 06/28/22 21:50 Urine Urobilinogen Norm mg/dL (Negative) 06/28/22 21:50 Ur Leukocyte Esterase Negative (Negative) 06/28/22 21:50 Urine RBC 40-50 /hpf (0-2) H 06/28/22 21:50 Urine WBC 5-10 /hpf (0-5) H 06/28/22 21:50 Ur Squamous Epith Cells 0-4 /hpf (0-5) H 06/28/22 21:50 Ur Renal Epithelial Cell 0-2 /hpf 06/28/22 21:50 Amorphous Sediment 1+ /hpf 06/28/22 21:50 Urine Bacteria Trace /hpf (NONE) 06/28/22 21:50 Hyaline Casts 0-4 /lpf H 06/28/22 21:50 Fine Granular Casts 0-4 /lpf H 06/28/22 21:50 EKG Data EKG 1: I personally reviewed and interpreted this EKG as follows: EKG interpretation date: 06/28/22 EKG interpretation time: 19:56 Interpretation: nsr hr [address] or t wave abnormalities qrs 106 qtc 421 Computer generated interpretation: Abdomen/Pelvis CT 06/28/22 19:43 IMPRESSION: 1. Borderline appendix with question of possible early appendicitis. 2. Bilateral pleural effusions not significantly changed. 3. 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 4. Other chronic findings as described above. ADDENDUM: 06/28/222152 Get addendumTHIS REPORT CONTAINS FINDINGS THAT MAY BE CRITICAL TO PATIENT CARE. The findings were verbally communicated via telephone conference with Dr. Munoz at 9:50 PM OBSERVATION ASSISTANT on 06/28/2022. The findings were acknowledged and understood. Chest X-Ray 06/28/22 19:43 IMPRESSION: Left pleural effusion and left lower lobe atelectasis not changed compared with 06/23/2022. Head CT 06/28/22 19:47 IMPRESSION: 1. Atrophy and chronic ischemic changes and old right parietal infarct. 2. No acute finding. Discharge Plan Discharge Patient Disposition: Home Clinical Impression: Confusion, Valdovinos catheter problem Condition: Stable Prescriptions: No Action atenolol 100 mg tablet 100 mg PO DAILY amlodipine 10 mg tablet 10 mg PO DAILY simvastatin 20 mg tablet 20 mg PO QPM montelukast 10 mg tablet 10 mg PO DAILY pioglitazone 30 mg tablet 30 mg PO DAILY Tradjenta 5 mg tablet 5 mg PO DAILY hydralazine 25 mg tablet 25 mg PO BID Qty: 60 0RF Senna-S 8.6-50 mg tablet 1 tab-cap PO DAILY Qty: 60 0RF cyanocobalamin (vitamin B-12) 100 mcg tablet 100 mcg PO DAILY Qty: 60 0RF Feosol 325 mg (65 mg iron) tablet 325 mg PO DAILY Qty: 60 0RF Miralax 17 gram/dose powder 4 g PO DAILY Qty: 119 0RF Discharge Orders: Discharge ED (Routine); Ordered 06/28/22 Ordered By: Erin Verma Referrals: Becky Moon DO [Primary Care Provider] - Discharge Diet: Advance as tolerated Discharge Activity: Resume usual activity Patient Instructions: Altered Mental Status (ED) Coding Level of Care Code ED Inverform Machine Operator for Rosieg Fwd Exam Comprehensive
--- NOTE | 2022-06-28 19:47 | CTR_ITS ---
PROCEDURE INFORMATION: Exam: CT Head Without Contrast Exam date and time: 06/28/2022 8:48 PM Age: 86 years old Clinical indication: Altered mental status/memory loss; Additional info: AMS TECHNIQUE: Imaging protocol: Computed tomography of the head without contrast. Radiation optimization: All CT scans at this facility use at least one of these dose optimization techniques: automated exposure control; mA and/or kV adjustment per patient size (includes targeted exams where dose is matched to clinical indication); or iterative reconstruction. COMPARISON: No relevant prior studies available. RADIATION DOSE METRICS: Total DLP (mGy-cm): 1192.86 FINDINGS: Brain: There is moderate cortical atrophy. Low-density changes in the white matter are consistent with nonspecific small vessel chronic ischemic change. There is no intracranial mass, hemorrhage or edema. There is focal area of encephalomalacia in the right frontoparietal region in keeping with chronic cortical infarct. Cerebral ventricles: No ventriculomegaly. Paranasal sinuses: Visualized sinuses are unremarkable. No fluid levels. Mastoid air cells: Visualized mastoid air cells are well aerated. Bones/joints: Unremarkable. No acute fracture. Soft tissues: Unremarkable. CT/CT head wo con* [id number] IMPRESSION: 1. Atrophy and chronic ischemic changes and old right parietal infarct. 2. No acute finding.
--- NOTE | 2022-06-28 19:56 | ECG_ITS ---
[facility] Test Date: 2022-06-28 Pat Name: Tomer High Department: Room: Gender: Male Multimedia Producer: : 1935 Requested By: Erin Verma Order Number: [id number] Rita MD: Edwin Lawrence M.D. Measurements Intervals [place] Rate: 92 P: 85 W[place]: 236 QRS: 11 QRSD: 106 T: 48 QT: 372 QTc: 460 Interpretive Statements SINUS RHYTHM WITH FIRST DEGREE AV BLOCK Compared to ECG 06/23/2022 00:14:06 Myocardial infarct finding no longer present Electronically Signed On 06-29-2022 8:55:53 BEAMING MACHINE OPERATOR by Edwin Lawrence M.D. [id number]
[2022-06-28 20:52] LABS: Basophils % 0.3 %; Eosinophils # 0.1 10^3/uL (0.0-0.8); Eosinophils % 0.8 %; Hematocrit 28.8 % (42.0-52.0); Hemoglobin 9.4 g/dL (11.7-16.6); Lymphocytes # 0.8 10^3/uL (0.8-4.8); Lymphocytes % 6.2 %; Mean Corpuscular HGB Conc 32.6 g/dL (30.0-36.0); Mean Corpuscular Hemoglobin 29.7 pg (28.0-34.0); Mean Corpuscular Volume 91.1 fl (80-94); Mean Platelet Volume 10.4 fL (7.4-10.4); Monocytes # 0.6 10^3/uL (0.2-0.9); Monocytes % 4.9 %; Neutrophils % 86.4 %; Nucleated Red Blood Cells % 0 %; Platelet Count 388 10^3/cmm (130-400); Red Blood Count 3.16 10^6/uL (4.1-5.3); Red Cell Distribution Width 14.5 % (12.1-15.1); White Blood Count 12.8 10^3/uL (4.0-10.0)
[2022-06-28] MEDS: iohexol 350 mg/mL 500 mL Btl (per mL) IV (20:59)
[2022-06-28 21:56] LABS: Alanine Aminotransferase 15 U/L (0-41); Albumin Level 2.8 g/dL (3.5-5.2); Alkaline Phosphatase 63 U/L (40-130); Anion Gap 17.4 (5-19); Aspartate Amino Transferase 25 U/L (0-40); Blood Urea Nitrogen 32 mg/dL (8-23); Calcium 8.3 mg/dL (8.5-10.5); Carbon Dioxide 21 mmol/L (22-29); Chloride 104 mmol/L (98-107); Globulin 2.8 g/dL (1.3-4.6); Glucose 172 mg/dL (65-115); Osmolality Calculated 297 mOsm/kg (285-295); Sodium 138 mmol/L (136-145); Total Bilirubin 0.6 mg/dL (0.15-1.2); Total Protein 5.6 g/dL (6.6-8.7)
[2022-06-28 21:57] LABS: Potassium 4.4 mmol/L (3.5-5.1)
[2022-06-28 22:42] LABS: Add Urine Microscopic? YES; Bacteria Urine TRACE /hpf; Bilirubin Urine Neg (Negative); Blood Urine 3+ (Negative); Glucose Urine UA Norm (Normal); Ketones Urine 1+ (Negative); Leukocyte Esterase Urine Negative (Negative); Nitrate Urine Negative (Negative); Protein Urine 1+ (Negative); RBC Urine 40-50 /hpf (0-2); Renal Epithelial Cells Urine 0-2 /hpf; Specific Gravity, Urine 1.015 (1.005-1.030); Squamous Epithelial Cell Urine 0-4 /hpf (0-5); Urine Appearance SL Hazy (CLEAR); Urine Color Yellow (Yellow); Urobilinogen Urine Norm (Negative); pH Urine 5 (5-7)
[2022-06-28 22:43] LABS: Add Urine Culture? No; Amorphous Sediment Urine 1+ /hpf; Fine Granular Casts Urine 0-4 /lpf; Hyaline Casts Urine 0-4 /lpf
[2022-06-28 23:10] VITALS: BP 124/65
== END 2022-06-28 23:56 | disposition home or self-care (01) ==
PROVIDERS: Emergency Provider Emergency Medicine; PCP Family Medicine
DX: R41.0 Disorientation, unspecified (principal); T83.9XXA Unspecified complication of genitourinary prosthetic device, implant and graft, initial encounter; I10 Essential (primary) hypertension; E11.9 Type 2 diabetes mellitus without complications; Z89.512 Acquired absence of left leg below knee; Y73.8 Miscellaneous gastroenterology and urology devices associated with adverse incidents, not elsewhere classified
CPT/HCPCS: 51702; 70450; 71045; 74177; 80053; 81001; 85025; 93005; 99285; Q9967

== ENCOUNTER 2022-07-05 08:37 | Inpatient (IN) | payer MEDICARE, MEDICAID, SELFPAY ==
[2022-07-05] VITALS (80 sets, daily range): BP systolic 85–144; BP diastolic 39–79; PULSE 66–150; RESP 13–31; TEMP 36.4; O2SAT 81–100; BMI 29.4
--- NOTE | 2022-07-05 08:41 | ECG_ITS ---
[facility] Test Date: 2022-07-05 Pat Name: Tomer High Department: Room: Gender: Male Entertainment Director: : [id number] Requested By: Leodan Carballo Order Number: [id number] Rita MD: Daphney Nelson M.D. Measurements Intervals [place] Rate: 73 P: 53 NE: 225 QRS: 52 QRSD: 98 T: 59 QT: 410 QTc: 454 Interpretive Statements SINUS RHYTHM WITH FIRST DEGREE AV BLOCK Compared to ECG 06/28/2022 19:56:07 No significant changes Electronically Signed On 07-05-2022 21:41:30 MEDICARE NURSE by Daphney Nelson M.D. [id number]
--- NOTE | 2022-07-05 08:44 | XRR_ITS ---
PROCEDURE INFORMATION: Exam: XR Chest Exam date and time: 07/05/2022 8:52 AM Age: 86 years old Clinical indication: Cough and dyspnea; Prior surgery; Surgery type: L bka; Additional info: Dyspnea/cough TECHNIQUE: Imaging protocol: Radiologic exam of the chest. Views: 1 view. COMPARISON: CR (CHEST, ) 06/28/2022 7:56 PM FINDINGS: Lungs: There is now complete opacification of the left hemithorax. This is likely due to a combination of left lung consolidation/collapse and a left pleural effusion. Minimal right basilar airspace disease, possibly due to atelectasis given poor inspiration and decreased right lung volume. Pleural spaces: See Lungs finding. Heart/Mediastinum: The left cardiac margin is silhouetted out. Difficult to assess heart size. The left mediastinal border is silhouetted out. No shift of the trachea. Vasculature: The aorta is atherosclerotic. Bones/joints: Curvature of the upper thoracic spine convex to the left. XR/XR chest 1V portable [id number] IMPRESSION: Opacification of the left hemithorax likely due to a combination of left lung consolidation/collapse and a left pleural effusion.
--- NOTE | 2022-07-05 08:53 | W.ED.SOB ---
HPI - SOB/Dyspnea General: Chief Complaint: Shortness of Breath/Dyspnea Stated Complaint: Respiratory Distress Time Seen by Provider: 07/05/22 08:42 Source: EMS Mode of arrival: EMS History of Present Illness: HPI Narrative: 86-year-old male presents to the emergency room with complaints of shortness of breath. He recently was hospitalized with acute kidney injury and gangrenous infection of his right lower leg he had a right below the knee amputation previously left below the knee amputation. He has an indwelling Valdovinos he resides at a senior care. He is not really able to give me a history they report increased oxygen need getting around 4:00's morning arrival here he is on a nonrebreather at 15 L/min he denies chest pain to me but I am not sure his reports are very reliable. There is no urine in his Valdovinos senior care reports that he had 450 mL drained around 4 AM this morning. MD elicited complaint: shortness of breath and cough Timing: constant Severity: mild Exacerbating factors: nothing Relieving factors: nothing Associated symptoms: Deny abdominal pain, chest congestion, chest pain, cough, diaphoresis, dizziness, extremity pain, fever(s), hemoptysis, lightheadedness, myalgias, nausea, orthopnea, palpitations, paresthesias, polydipsia, polyuria, rash, sense of impending doom, syncope or vomiting Treatment prior to arrival: none Review of Systems Const: Denies: fever(s), chills, fatigue, malaise or diaphoresis ENMT: Denies: throat pain, ear or mastoid pain, nasal discharge or nasal congestion Card: Denies: chest pain, palpitations, lightheadedness, syncope or orthopnea Resp: Reports: dyspnea, non-productive cough and wheezing; Denies: hemoptysis or chest congestion GI: Denies: abdominal pain, nausea or vomiting : Denies: flank pain, dysuria, urinary frequency or urinary urgency Musc: Denies: extremity pain Skin/Breast: Denies: rash or pruritus Neuro: Denies: dizziness Endo: Denies: polyuria or polydipsia [facility] ED PFSH: Medical History (Updated 07/06/22 @ 06:51 by Leodan Herrera DO) CRISTINO (acute kidney injury) Chronic kidney disease Constipation Gangrene of right foot History of hypertension History of type 2 diabetes mellitus Hyperlipidemia Hypertension No pertinent past medical history Partial bowel obstruction Peripheral vascular disease Postoperative anemia Surgical History History of below knee amputation Left History of right below knee amputation Family History Mother Diabetes Father CAD (coronary artery disease) Social History Smoking and tobacco status: never smoked Alcohol intake: never Physical Exam Const: GENERAL APPEARANCE: cooperative ORIENTATION/CONSCIOUSNESS: Yes awake HENMT: COMMON NORMALS: normocephalic, atraumatic and hearing grossly normal bilaterally HEAD & SCALP: normocephalic and atraumatic Resp: EFFORT & INSPECTION: Yes tachypneic, Yes respiratory distress and Yes uses accessory muscles AUSCULTATION: rhonchi and wheezes Cardio: COMMON NORMALS: regular rate, regular rhythm and No murmurs present (Cardio) RATE: regular rate RHYTHM: regular rhythm GI: COMMON NORMALS: Soft to palpation and No hepatosplenomegaly present AUSCULTATION: Yes normoactive bowel sounds PALPATION: Yes Soft to palpation, No Tenderness to palpation present (GI), No Guarding due to palpation present (GI) and Yes No hepatosplenomegaly present Extremity: COMMON NORMALS: normal to inspection, capillary refill normal and no clubbing, cyanosis or edema OTHER: Bilateral below the knee amputations staple line on the right below the knee amputation appears to be healing well no dehiscence no redness no drainage Skin: COMMON NORMALS: no rashes or lesions noted GENERAL SKIN EXAM: no rashes or lesions noted Course Vital Signs: Vital signs: Vital Signs Temperature 98.5 F 07/06/22 06:30 Pulse Rate 83 07/06/22 06:30 Respiratory Rate 21 H 07/06/22 02:01 Blood Pressure 121/48 07/06/22 06:30 Pulse Oximetry 94 07/06/22 06:30 Oxygen Delivery Me thod 07/06/22 06:30 Oxygen Flow Rate 3.5 07/06/22 02:01 Fraction of Inspir ed Oxygen 30 07/05/22 20:00 MDM - SOB/Dyspnea Medical Decision Making Patient to With moderate respiratory distress. He is placed on BiPAP he was positive for COVID he has a very large left pleural effusion and a smaller right pleural effusion. He will require hospitalization for his COVID and the pleural effusions discussed with the hospitalist cover for secondary bacterial infections with antibiotics as well. Labs imaging EKG reviewed no acute EKG changes noted. Medical Records I reviewed the patient's medical records. Lab Data I reviewed the patient's lab results. 07/05/22 08:35 07/05/22 08:35 Labs/Radiology: Radiology Impressions Chest CT 07/05/22 09:43 IMPRESSION: 1. Opacification LEFT hemithorax with pleural effusion and underlying compressive atelectasis LEFT upper lobe and LEFT lower lobe. Complete opacification LEFT mainstem bronchus with fluid/secretions. 2. Small RIGHT pleural effusion with compressive atelectasis. 3. Cardiomegaly. 4. Prominent AP window lymph node measuring 12 mm 5. Stable 12 mm low-attenuation cystic-appearing lesion in the pancreas. Thoracentesis Ultrasound 07/05/22 11:34 IMPRESSION: 1. LEFT thoracentesis yielding 800 cc of fluid. 2. Chest radiograph to follow to evaluate for pneumothorax. Chest X-Ray 07/05/22 13:01 IMPRESSION: 1. Status post LEFT thoracentesis. No pneumothorax. 2. Significant reexpansion of the LEFT lung since the thoracentesis. Small residual LEFT pleural effusion remains. Laboratory Results WBC 16.1 10^3/uL (4.0-10.0) H 07/05/22 08:35 RBC 3.04 10^6/uL (4.1-5.3) L 07/05/22 08:35 Hgb 9.3 g/dL (11.7-16.6) L 07/05/22 08:35 Hct 29.4 % (42.0-52.0) L 07/05/22 08:35 MCV 96.7 fl (80-94) H 07/05/22 08:35 MCH 30.6 pg (28.0-34.0) 07/05/22 08:35 MCHC 31.6 g/dL (30.0-36.0) 07/05/22 08:35 RDW 14.9 % (12.1-15.1) 07/05/22 08:35 Plt Count 352 10^3/cmm (130-400) 07/05/22 08:35 MPV 10.2 fL (7.4-10.4) 07/05/22 08:35 Neut % (Auto) 89.3 % 07/05/22 08:35 Lymph % (Auto) 4.9 % 07/05/22 08:35 [place] % (Auto) 3.7 % 07/05/22 08:35 Eos % (Auto) 0.3 % 07/05/22 08:35 Baso % (Auto) 0.2 % 07/05/22 08:35 Neut # (Auto) 14.35 10^3/uL (1.8-7.7) H 07/05/22 08:35 Lymph # (Auto) 0.8 10^3/uL (0.8-4.8) 07/05/22 08:35 [place] # (Auto) 0.6 10^3/uL (0.2-0.9) 07/05/22 08:35 Eos # (Auto) 0.1 10^3/uL (0.0-0.8) 07/05/22 08:35 Baso # (Auto) 0.0 10^3/uL (0.0-0.1) 07/05/22 08:35 Nucleated RBC % (auto) 0 % 07/05/22 08:35 Nucleated RBCs # 0.0 /100WBC 07/05/22 08:35 PT 14.70 SECONDS (12.1-14.9) 07/05/22 08:35 INR 1.12 (0.8-1.2) 07/05/22 08:35 APTT 41.8 SECONDS (23.9-36.7) H 07/05/22 08:35 Specimen Type Arterial 07/05/22 08:54 Sample Site Radial, left 07/05/22 08:54 ABG pH 7.36 (7.35-7.45) 07/05/22 08:54 ABG pCO2 46.3 mmHg (35-45) H 07/05/22 08:54 ABG pO2 57.8 mmHg (80.0-100.0) L 07/05/22 08:54 ABG HCO3 26.1 mmol/L (22-26) H 07/05/22 08:54 ABG O2 Saturation 90.7 07/05/22 08:54 ABG Base Excess 0.4 mmol/L (-2.0-2.0) 07/05/22 08:54 Ned Test Pos 07/05/22 08:54 A-a O2 Gradient 77.3 mmHg (5-10) H 07/05/22 08:54 Hematocrit 29.2 % (42-52) L 07/05/22 08:54 Hgb O2 Saturation 89.2 % (95-100) L 07/05/22 08:54 Carboxyhemoglobin 1.4 %THgb (0.4-20.1) 07/05/22 08:54 Methemoglobin 0.3 % (0.4-1.5) L 07/05/22 08:54 Total Hemoglobin 9.5 g/dL (14-18) L 07/05/22 08:54 Sodium 138.0 mmol/L (131-143) 07/05/22 08:54 Potassium 4.8 mmol/L (3.5-5.0) 07/05/22 08:54 Glucose 301.0 mg/dL (70-115) H 07/05/22 08:54 Ionized Calcium 1.2 mmol/L (1.1-1.4) 07/05/22 08:54 O2 Delivery Device Nrb 07/05/22 08:54 O2 Liters/Min 15.0 % 07/05/22 08:54 FiO2 100.0 % 07/05/22 08:54 Tobacco Conditioner ID [place] 07/05/22 08:54 Sodium 137 mmol/L (136-145) 07/05/22 08:35 Potassium 5.1 mmol/L (3.5-5.1) 07/05/22 08:35 Chloride 103 mmol/L (98-107) 07/05/22 08:35 Carbon Dioxide 24 mmol/L (22-29) 07/05/22 08:35 Anion Gap 15.1 (5-19) 07/05/22 08:35 BUN 39 mg/dL (8-23) H 07/05/22 08:35 Creatinine 1.7 mg/dL (0.7-1.2) H 07/05/22 08:35 GFR Calculation Not Reportable 07/05/22 08:35 Glucose 331 mg/dL (65-115) H 07/05/22 08:35 Calculated Osmolality 306 mOsm/kg (285-295) H 07/05/22 08:35 Lactic Acid 1.0 mmol/L (0.5-2.2) 07/05/22 09:26 Calcium 7.9 mg/dL (8.5-10.5) L 07/05/22 08:35 Total Bilirubin 0.4 mg/dL (0.15-1.2) 07/05/22 08:35 AST 11 U/L (0-40) 07/05/22 08:35 ALT 9 U/L (0-41) 07/05/22 08:35 Alkaline Phosphatase 69 U/L (40-130) 07/05/22 08:35 C-Reactive Protein 42.0 mg/L (0.0-4.9) H 07/05/22 08:35 NT-Pro-B Natriuret Pep 9318 pg/mL (0-450) H 07/05/22 08:35 Total Protein 6.1 g/dL (6.6-8.7) L 07/05/22 08:35 Albumin 2.8 g/dL (3.5-5.2) L 07/05/22 08:35 Globulin 3.3 g/dL (1.3-4.6) 07/05/22 08:35 Procalcitonin 0.18 ng/mL (0-0.5) 07/05/22 08:35 Urine Color Yellow (Yellow) 07/05/22 10:55 Urine Appearance Cloudy (CLEAR) A 07/05/22 10:55 Urine pH 9 (5-7) H 07/05/22 10:55 Ur Specific [place] 1.015 (1.005-1.030) 07/05/22 10:55 Urine Protein 1+ (Negative) H 07/05/22 10:55 Urine Glucose (UA) Norm (Normal) 07/05/22 10:55 Urine Ketones Negative (Negative) 07/05/22 10:55 Urine Blood 2+ (Negative) H 07/05/22 10:55 Urine Nitrate Negative (Negative) 07/05/22 10:55 Urine Bilirubin Neg (Negative) 07/05/22 10:55 Prot Sulfosalicylic Acd Negative (Negative) 07/05/22 10:55 Urine Urobilinogen Norm mg/dL (Negative) 07/05/22 10:55 Ur Leukocyte Esterase 2+ (Negative) H 07/05/22 10:55 Urine RBC 0-4 /hpf (0-2) H 07/05/22 10:55 Urine WBC 25-40 /hpf (0-5) H 07/05/22 10:55 Ur Squamous Epith Cells 0-4 /hpf (0-5) H 07/05/22 10:55 Triple Phos Crystals 10-15 /hpf H 07/05/22 10:55 Amorphous Sediment Not Reportable 07/05/22 10:55 Urine Bacteria 4+ /hpf (NONE) H 07/05/22 10:55 Serum Ketones Negative (Negative) 07/05/22 08:35 Coronavirus 229E (PCR) Not detected (NOT DETECT) 07/05/22 09:06 Influenza Type A Ag negative (Negative) 07/05/22 09:06 Influenza Type B Ag negative (Negative) 07/05/22 09:06 SARS-CoV-2 (PCR) Detected (NOT DETECT) A 07/05/22 09:06 Discharge Plan Discharge Patient Disposition: Admitted As Inpatient Admit Provider: Musa Sanabria Clinical Impression: Pneumonia due to COVID-19 virus, CRISTINO (acute kidney injury), Acute respiratory failure with hypoxia, Bilateral pleural effusion, Anemia, History of type 2 diabetes mellitus, UTI (urinary tract infection) Condition: Stable Coding Level of Care Code ED Warehouse Receiving Clerk for Keisha Fwd Exam Detailed
--- NOTE | 2022-07-05 09:00 | PC.NURSE ---
Pt has a urine cath, it has no urine in it. I called the long-term and they said they emptied it 3 hours ago and got 450ml. Pt has no urine in bag. Dr. Herrera was notified
[2022-07-05 09:05] LABS: ABG PCO2 46.3 mmHg (35-45); ABG PH Result 7.36 (7.35-7.45); Alveolar-Arterial Oxygen Gradi 77.3 mmHg (5-10); Arterial Blood Gas Hematocrit 29.2 % (42-52); Base Excess ABG 0.4 mmol/L (-2.0-2.0); Blood Gas Allen Test Pos; Blood Gas Operator Identificat MONRO; Blood Gas Sample Site Radial, left; Blood Gas Sample Type Arterial; Carboxyhemoglobin 1.4 %THgb (0.4-20.1); HCO3 ABG 26.1 mmol/L (22-26); HGB O2 Sat 89.2 % (95-100); Ionized Calcium Level - ABG 1.2 mmol/L (1.1-1.4); Methemoglobin 0.3 % (0.4-1.5); Oxygen Device NRB; Oxygen Saturation ABG 90.7; PO2 ABG 57.8 mmHg (80.0-100.0); Potassium Level - ABG 4.8 mmol/L (3.5-5.0); Total Hemoglobin 9.5 g/dL (14-18)
[2022-07-05 09:20] LABS: Basophils % 0.2 %; Eosinophils # 0.1 10^3/uL (0.0-0.8); Eosinophils % 0.3 %; Hematocrit 29.4 % (42.0-52.0); Hemoglobin 9.3 g/dL (11.7-16.6); Lymphocytes # 0.8 10^3/uL (0.8-4.8); Lymphocytes % 4.9 %; Mean Corpuscular HGB Conc 31.6 g/dL (30.0-36.0); Mean Corpuscular Hemoglobin 30.6 pg (28.0-34.0); Mean Corpuscular Volume 96.7 fl (80-94); Mean Platelet Volume 10.2 fL (7.4-10.4); Monocytes # 0.6 10^3/uL (0.2-0.9); Monocytes % 3.7 %; Neutrophils # 14.35 10^3/uL (1.8-7.7); Neutrophils % 89.3 %; Nucleated Red Blood Cells % 0 %; Platelet Count 352 10^3/cmm (130-400); Red Blood Count 3.04 10^6/uL (4.1-5.3); Red Cell Distribution Width 14.9 % (12.1-15.1); White Blood Count 16.1 10^3/uL (4.0-10.0)
[2022-07-05 09:36] LABS: Influenza A by IFA negative (Negative); Influenza B by IFA negative (Negative)
--- NOTE | 2022-07-05 09:43 | CT_ITS ---
WS: [id number] CT CHEST TECHNIQUE: Contrast enhanced CT of the chest with coronal and sagittal reformatted images. CLINICAL INFORMATION: new pleurel efusion COMPARISON: CT June 28, 2022 DLP: 608.[address] scans at [facility] use at least one of these dose optimization techniques: automated e xposure control; mA and/or kV adjustment per patient size (includes targeted exams where dose is matc hed to clinical indication); or iterative reconstruction. FINDINGS: Cardiomegaly. Normal caliber thoracic aorta. Aortic calcification. Proximal main pulmonary arteries a re normal. Volume loss LEFT lung with LEFT pleural effusion and underlying compressive atelectasis LEFT upper an d LEFT lower lobes. No residual aerated lung. Fluid and secretions LEFT mainstem bronchus. RIGHT to L EFT mediastinal shift. Small RIGHT pleural effusion with compressive atelectasis RIGHT lower lobe. Prominent LEFT AP window lymph node measuring 12 mm.Thoracic kyphosis. Thoracic curve. No axillary lymphadenopathy. Adrenal glands are normal. Splenic artery calcification. Fatty atrophy of the pancreas. Stable pancre atic cystic appearing low-attenuation lesion CT/CT chest w con* [id number] IMPRESSION: 1. Opacification LEFT hemithorax with pleural effusion and underlying compress linda atelectasis LEFT upper lobe and LEFT lower lobe. Complete opacification LEF T mainstem bronchus with fluid/secretions. 2. Small RIGHT pleural effusion with compressive atelectasis. 3. Cardiomegaly. 4. Prominent AP window lymph node measuring 12 mm 5. Stable 12 mm low-attenuation cystic-appearing lesion in the pancreas.
[2022-07-05 09:46] LABS: Ketone (Acetest) Serum Negative (Negative)
[2022-07-05 09:47] LABS: Alanine Aminotransferase 9 U/L (0-41); Albumin Level 2.8 g/dL (3.5-5.2); Alkaline Phosphatase 69 U/L (40-130); Anion Gap 15.1 (5-19); Aspartate Amino Transferase 11 U/L (0-40); Blood Urea Nitrogen 39 mg/dL (8-23); Calcium 7.9 mg/dL (8.5-10.5); Carbon Dioxide 24 mmol/L (22-29); Chloride 103 mmol/L (98-107); Globulin 3.3 g/dL (1.3-4.6); Glucose 331 mg/dL (65-115); Osmolality Calculated 306 mOsm/kg (285-295); Potassium 5.1 mmol/L (3.5-5.1); Sodium 137 mmol/L (136-145); Total Bilirubin 0.4 mg/dL (0.15-1.2); Total Protein 6.1 g/dL (6.6-8.7)
[2022-07-05] MEDS: vancomycin 1,000 MG in sodium chloride 0.9% 250 ML 250 MG IV (10:23)
[2022-07-05] MEDS: iohexol 350 mg/mL 500 mL Btl (per mL) IV (10:36)
[2022-07-05 11:03] LABS: Adenovirus Not Detected (NOT DETECT); Chlamydia Pneumoniae Not Detected (NOT DETECT); Coronavirus 229E,HKU1,NL63,OC4 Not Detected (NOT DETECT); Human Metapneumovirus Not Detected (NOT DETECT); Human Rhinovirus/Enterovirus Not Detected (NOT DETECT); Influenza A Not Detected (NOT DETECT); Influenza A H1 Not Detected (NOT DETECT); Influenza A H1-2009 Not Detected (NOT DETECT); Influenza A H3 Not Detected (NOT DETECT); Influenza B Not Detected (NOT DETECT); Mycoplasma Pneumoniae Not Detected (NOT DETECT); Parainfluenza Virus Type 1 Not Detected (NOT DETECT); Parainfluenza Virus Type 2 Not Detected (NOT DETECT); Parainfluenza Virus Type 3 Not Detected (NOT DETECT); Parainfluenza Virus Type 4 Not Detected (NOT DETECT); Respiratory Syncytial Virus A Not Detected (NOT DETECT); Respiratory Syncytial Virus B Not Detected (NOT DETECT); SARS-COV-2 Detected (NOT DETECT)
--- NOTE | 2022-07-05 11:34 | US_ITS ---
WS: [id number] ULTRASOUND-GUIDED THORACENTESIS, LEFT HISTORY: LEFT pleural effusion. Procedure, risks, and complications were explained to the patient. With the patient in an upright pos ition, the skin over the LEFT posterior thorax was cleansed with ChloraPrep and anesthetized with 1% buffered lidocaine. A 5 Georgian Yueh needle is inserted into the pleural fluid without complication. A pproximately 800 cc of light yellow pleural fluid is removed without difficulty. Specimen collected for analysis as requested. / thoracentesis [id number] IMPRESSION: 1. LEFT thoracentesis yielding 800 cc of fluid. 2. Chest radiograph to follow to evaluate for pneumothorax.
[2022-07-05 11:45] LABS: Add Urine Microscopic? YES; Bilirubin Urine Neg (Negative); Blood Urine 2+ (Negative); Glucose Urine UA Norm (Normal); Ketones Urine Negative (Negative); Leukocyte Esterase Urine 2+ (Negative); Nitrate Urine Negative (Negative); Protein Urine 1+ (Negative); Specific Gravity, Urine 1.015 (1.005-1.030); Sulfosalicylic Acid Urine Negative (Negative); Urine Appearance Cloudy (CLEAR); Urine Color Yellow (Yellow); Urobilinogen Urine Norm (Negative); pH Urine 9 (5-7)
[2022-07-05 11:46] LABS: Bacteria Urine 4+ /hpf; RBC Urine 0-4 /hpf (0-2); Squamous Epithelial Cell Urine 0-4 /hpf (0-5); WBC Urine 25-40 /hpf (0-5)
[2022-07-05] MEDS: aztreonam 1,000 MG in sodium chloride 0.9% (plus) 50 ML 100 MG IV (11:59)
[2022-07-05] MEDS: dexamethasone 10 mg/mL INJ IVP (12:04)
[2022-07-05 12:08] LABS: Add Urine Culture? Yes
--- NOTE | 2022-07-05 13:01 | XR_ITS ---
WS: [id number] PORTABLE CHEST HISTORY: Post LEFT thoracentesis. COMPARISON: Study earlier the same day. Significant improvement in aeration of the LEFT lung since the prior study. There is a small residual LEFT pleural effusion with LEFT basilar atelectasis. No pneumothorax. RIGHT lung is well expanded. Cardiac size: Mildly enlarged cardiac silhouette. Mediastinum/Aorta: Mild atherosclerosis aorta. No osseous abnormality seen. XR/XR chest 1V portable [id number] IMPRESSION: 1. Status post LEFT thoracentesis. No pneumothorax. 2. Significant reexpansion of the LEFT lung since the thoracentesis. Small resi dual LEFT pleural effusion remains.
--- NOTE | 2022-07-05 13:06 | PM.HP ---
Providers/Chief Complaint Admitting Physician: Musa Sanabria MD Primary Care Provider: Becky Moon DO Chief Complaint: Respiratory Distress History of Present Illness Tomer High is a 86 year old male with recent right lower leg amputation presenting from [facility] senior living with shortness of breath. Patient cannot give an adequate history. The senior living reports they found him at 815 short of breath, and he required oxygen but did not maintain his saturation even on 5 to 6 L. He does not have a history of aspiration. Typically he is alert and oriented. He has been on a regular diet. They reports his right lower extremity amputation site has been healing adequately. No history of any COVID in the building. In the emergency department he received some vancomycin, aztreonam, remdesivir, dexamethasone. Review of Systems General: Reports: ROS unobtainable due to medical condition (Currently on BiPAP, short of breath) Medications/Allergies Home Medications Medication Instructions Recorded Confirmed Last Taken Type amlodipine 10 mg tablet 10 mg PO DAILY 06/23/22 07/05/22 07/05/22 History atenolol 100 mg tablet 100 mg PO DAILY 06/23/22 07/05/22 07/05/22 History linagliptin 5 mg tablet (Tradjenta) 5 mg PO DAILY 06/23/22 07/05/22 07/05/22 History montelukast 10 mg tablet 10 mg PO DAILY 06/23/22 07/05/22 07/05/22 History pioglitazone 30 mg tablet 30 mg PO DAILY 06/23/22 07/05/22 07/05/22 History simvastatin 20 mg tablet 10 mg PO DAILY 06/23/22 07/05/22 07/04/22 History cyanocobalamin (vitamin B-12) 100 100 mcg PO DAILY #60 tabs 06/28/22 07/05/22 07/05/22 Rx mcg tablet ferrous sulfate 325 mg (65 mg 325 mg PO DAILY #60 tabs 06/28/22 07/05/22 07/05/22 Rx iron) tablet (Feosol) hydralazine 25 mg tablet 25 mg PO BID #60 tabs 06/28/22 07/05/22 07/05/22 Rx acetaminophen 325 mg tablet 650 mg PO Q6H PRN Pain 07/05/22 07/05/22 06/29/22 History (Tylenol) bisacodyl 10 mg rectal suppository 10 mg ND DAILY PRN Constipation 07/05/22 07/05/22 Unknown History (Dulcolax (bisacodyl)) bisacodyl 5 mg tablet,delayed 10 mg PO DAILY PRN Constipation 07/05/22 07/05/22 Unknown History release (Dulcolax (bisacodyl)) hydrocodone 5 mg-acetaminophen 325 1 tab PO Q4H PRN Pain 07/05/22 07/05/22 07/05/22 History mg tablet magnesium hydroxide 400 mg/5 mL 30 ml PO DAILY PRN Constipation 07/05/22 07/05/22 Unknown History oral suspension (Milk of Magnesia) ondansetron HCl 4 mg tablet 4 mg PO Q4H PRN Nausea 07/05/22 07/05/22 07/03/22 History polyethylene glycol 3350 17 17 g PO DAILY 07/05/22 07/05/22 07/02/22 History gram/dose oral powder (Miralax) sennosides 8.6 mg tablet (senna) 8.6 mg PO DAILY 07/05/22 07/05/22 07/05/22 History sodium phosphates 19 gram-7 118 ml ND DAILY PRN Constipation 07/05/22 07/05/22 Unknown History gram/118 mL enema (Fleet Enema) Allergies Allergy/AdvReac Type Severity Reaction Status Date / Time Penicillins Allergy Unknown Unknown Verified 06/23/22 09:20 PFSH Acute PFSH: Medical History (Updated 07/05/22 @ 13:24 by Musa Sanabria MD) CRISTINO (acute kidney injury) Chronic kidney disease Constipation Gangrene of right foot History of hypertension History of type 2 diabetes mellitus Hyperlipidemia Hypertension No pertinent past medical history Partial bowel obstruction Peripheral vascular disease Postoperative anemia Surgical History History of below knee amputation Left History of right below knee amputation Family History Mother Diabetes Father CAD (coronary artery disease) Social History Smoking and tobacco status: never smoked Alcohol intake: never Vitals/I&O/Wt Last Vital Signs Temp 97.5 F L 07/05/22 08:39 Pulse 67 07/05/22 10:12 Resp 16 07/05/22 08:39 BP 129/66 07/05/22 08:39 Pulse Ox 96 07/05/22 10:12 O2 Del Method 07/05/22 08:39 O2 Flow Rate 15 07/05/22 08:39 FiO2 95 07/05/22 10:12 07/04/22 07/05/22 07/05/22 22:59 06:59 14:59 Intake Total 250 / 250 Balance 250 / 250 Weight last 48 hrs Weight 85.275 kg Physical Exam Narrative: General exam is a white male, confused, on BiPAP, who about half his answers are interpretable. HEENT: Atraumatic and normocephalic. Oropharynx not examined, as on BiPAP Neck is supple no lymphadenopathy or thyromegaly Cardiovascular regular rate and rhythm with a 2/6 systolic murmur Lungs diminished breath sounds bilaterally left rater than right. No crackles Abdomen is soft with positive bowel sounds. 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 Dressing was not removed on his right lower extremity amputation as he was currently undergoing a thoracentesis Neuro no obvious focal deficits Skin no rash Urinary Catheter Management: Valdovinos: Cath Placed During This Visit: yes Urinary Catheter Date of Insertion: 07/05/22 Urinary Catheter Time of Insertion: 10:54 Data 07/05/22 08:35 07/05/22 08:35 Other Labs: PT PTT are pending ABG with a pH of 7.36, PCO2 of 46, PO2 of 58 on a 15 L nonrebreather Anion gap 15 Calcium 7.9 LFTs normal Albumin 2.8 Urinalysis 25-40 white blood cells, 0-4 reds, 4+ bacteria COVID PCR positive, serum ketones negative, influenza negative Chest CT opacification left hemothorax with opacification of the left mainstem bronchus with fluid secretions, large pleural effusion. Small right pleural effusion is noted. Cardiomegaly EKG demonstrates sinus rhythm, normal axis, no acute changes Blood cultures were collected Micro: Microbiology 07/05/22 09:26 Blood Culture - Preliminary Blood SPECIMEN COLLECTED 07/05/22 09:26 Blood Culture - Preliminary Blood SPECIMEN COLLECTED A&P Assessment and plan (1) Acute respiratory failure with hypoxia: Requiring BiPAP, 95% FiO2, with current settings 18/10 Wean BiPAP as tolerated May improve with thoracentesis, treatment of COVID, treatment of pneumonia Also has concerns of secretions in bronchus. Will give breathing treatments, incentive spirometry, Acapella, and likely when off BiPAP chest physiotherapy (2) Pneumonia due to COVID-19 virus: Patient presents with positive PCR With significant effusion, hypoxia will initiate dexamethasone 6 mg IV daily as well as be remdesivir Check procalcitonin as may have superimposed bacterial infection considering pleural effusions Initiate vancomycin, meropenem Sputum culture, blood culture, MRSA PCR Check CRP (3) Bilateral pleural effusion: Patient has bilateral pleural effusions. This can be seen with infection, congestive heart failure, or even COVID. Fluid appeared light yellow consistent with transudate but laboratories pending Thoracentesis has been performed by radiology. I am not for sure of the exact volume of fluid they have removed. We will order appropriate studies. Follow-up chest x-ray demonstrates no obvious pneumothorax. Significant improvement in left-sided white out is noted. (4) Anemia: Patient with history of anemia, and transfusion of 1 unit packed red blood cells last hospital stay with his amputation. (5) CRISTINO (acute kidney injury): Appears to have acute on chronic kidney injury. Cannot rule out some element of CHF considering his bilateral pleural effusions. Awaiting BNP. At this point we will not give IV fluids (6) UTI (urinary tract infection): IV antibiotics as above, meropenem, vancomycin currently (7) History of type 2 diabetes mellitus: Sliding scale insulin Plan Acute metabolic encephalopathy. Multiple possible causes including hypoxia, UTI, acute kidney injury, COVID Multiple other medical problems as outlined in past medical history Full code Heparin for DVT prophylaxis Attestations Medical Necessity Statement*: Will require greater than 2 midnight stay for evaluation and treatment of respiratory failure requiring BiPAP and multiple other medical problems. Critical Care Time: The high probability of a clinically significant, sudden or life threatening deterioration of the patient's [pulmonary, neurologic, cardiac, renal] system(s) required my full and direct attention, intervention and personal management. The critical care time is as shown. This time is in addition to time spent performing any reported procedures but includes the following: [x] Data and vital sign review and interpretation [x] Patient assessment, examination and intervention [x] Documentation [x] Medication orders and management Critical Care Time (min): 56 Coding Level of Care Code Acute Box Icer for Chg Fwd Diagnoses Acute respiratory failure with hypoxia J96.01 Pneumonia due to COVID-19 virus U07.1; J12.82 Bilateral pleural effusion J90 Anemia D64.9 CRISTINO (acute kidney injury) N17.9 UTI (urinary tract infection) N39.0 History of type 2 diabetes mellitus Z86.39
[2022-07-05] MEDS: remdesivir 200 MG in sodium chloride 0.9% (100 ml) 60 ML 100 MG IV (13:17)
--- NOTE | 2022-07-05 13:19 | USCV_ITS ---
Tomer High Age: 86 Gender: M : 1935 Exam Date: 07/05/2022 14:49 Ordering Phys: Musa Sanabria MD Technologist: Emerson Kessler [place] [facility] [place]: CHF BP: 129 / 66 HR: 104 Rhythm: Sinus Technical Quality: Adequate MEASUREMENTS (Male / Female) Normal Values 2D ECHO LV Diastolic Diameter PLAX 4.1 cm 4.2 - 5.9 / 3.9 - 5.3 cm LV Systolic Diameter PLAX 2.8 cm IVS Diastolic Thickness 0.9 cm 0.6 - 1.0 / 0.6 - 0.9 cm IVS Systolic Thickness 1.0 cm LVPW Diastolic Thickness 0.9 cm 0.6 - 1.0 / 0.6 - 0.9 cm LVPW Systolic Thickness 1.5 cm LVOT Diameter 2.0 cm LV Ejection Fraction 2D Teich 60.5 % LV Ejection Fraction MOD 2C 57.5 % LV Ejection Fraction 2C AL 59.2 % LA Diameter 3.1 cm LA Width 3.8 cm LA Height 5.1 cm RA Width 4.0 cm RA Height 4.8 cm Aorta at Sinotubular Diameter 2.6 cm IVC Diameter 2.0 cm M-MODE Aortic Annulus Diameter 3.3 cm LA Ao Ratio MM 1.0 MV E Point Septal Separation 1.0 cm DOPPLER AV Peak Velocity 172.0 cm/s LVOT Peak Velocity 146.0 cm/s AV Area Cont Eq vti 2.6 cm squared AV Area Cont Eq pk 2.7 cm squared MV Peak Velocity 147.0 cm/s MV Area PHT 7.1 cm squared Mitral E to A Ratio 0.9 MV E' Velocity 43.5 cm/s Mitral E to LV E' Lateral Ratio 6.2 TR Peak Velocity 235.0 cm/s TR Peak Gradient 22.1 mmHg TR Mean Velocity 334.9 cm/s TR Mean Gradient 52.0 mmHg TR Velocity Time Integral 132.1 cm Right Atrial Pressure 3.0 mmHg Pulmonary Artery Systolic Pressu 25.1 mmHg PV Peak Velocity 95.0 cm/s RV Acceleration Time 0.1 s RV Ejection Time 0.3 s RV AcT/ET 0.2 FINDINGS Left Ventricle Normal left ventricular size and systolic function, EF 67 %. No regional wall motion abnormalities. Grade I/IV diastolic dysfunction (abnormal relaxation filling pattern), normal to mildly elevated filling pressures. Right Ventricle The right ventricle is normal in size and function. Right Atrium The right atrium is normal in size. Left Atrium The left atrium is normal in size. Mitral Valve Thickened mitral valve. Moderate mitral annular calcification. Aortic Valve Thickened aortic valve. Tricuspid Valve Thickened tricuspid valve. Trace tricuspid valve regurgitation. Estimated pulmonary artery peak systolic pressure of 30 mmHg Pulmonic Valve Pulmonic valve not well visualized. Pericardium Normal pericardium without effusion. Aorta Normal ascending aorta dimension. IVC Normal IVC dimension with <50% respiratory change of the inferior vena cava. CONCLUSIONS Normal left ventricular size and systolic function, EF 67 %. No regional wall motion abnormalities. Grade I/IV diastolic dysfunction (abnormal relaxation filling pattern), normal to mildly elevated filling pressures. Thickened mitral valve. Moderate mitral annular calcification. Thickened aortic valve. Thickened tricuspid valve. Trace tricuspid valve regurgitation. Estimated pulmonary artery peak systolic pressure of 30 mmHg. There is no pericardial effusion. There are no intracardiac masses. No similar previous studies are available for comparison Dr Daphney Nelson MD [facility] (Electronically Signed) Final Date: 05 July 2022 21:39 S
--- NOTE | 2022-07-05 13:54 | PC.NURSE ---
Pt lost his IV enroute to ICU, area was red on the right AC where iv was.
[2022-07-05 14:18] LABS: NT Pro B Type Natriuretic Pept 9318 pg/mL (0-450); Procalcitonin 0.18 ng/mL (0-0.5)
[2022-07-05] MEDS: ipratropium-albuterol 3 mL Neb INHALATION ×2 (14:19→19:52)
[2022-07-05 14:20] LABS: INR 1.12 (0.8-1.2)
[2022-07-05 14:21] LABS: Partial Thromboplastin Time 41.8 SECONDS (23.9-36.7)
[2022-07-05 14:43] LABS: Cyto Order Verification Order Verified
[2022-07-05 15:07] LABS: Apprearance, Body Fluid CLEAR; Color, Body Fluid PALE YELLOW
[2022-07-05 15:12] LABS: Body Fluid Total Cells Counted 349; Body Fluid WBC 276 /uL; RBC, Body Fluid 0 10^3/uL
[2022-07-05 15:13] LABS: Body Fluid Polynuclear #Cells 0.073; Monocytes # Body Fluid 0.203
[2022-07-05 15:15] LABS: Albumin Body Fluid 1.3 g/dL; Creatinine Body Fluid 1.71 (0.7-1.2); LDH Pleural Fluid 74 U/L; Total Protein Pleural Fluid 2.1 g/dL; Triglycerides, Pleural Fluid 22 mg/dL
[2022-07-05] MEDS: heparin 5,000 unit/mL INJ 1 mL 5000 UNIT SUBCUT (15:24)
[2022-07-05] MEDS: famotidine 20 mg/2 mL INJ IVP (15:24)
[2022-07-05] MEDS: meropenem 1,000 MG in sodium chloride 0.9% (plus) 50 ML 100 MG IV (15:24)
--- NOTE | 2022-07-05 16:45 | PC.NURSE ---
Admitted to ICU via bed on bipap at 30% and immediately switched to 2L NC by RT. He is A&O to person, place, and time. Right BKA has 24 mauri and has redness surrounding wound and small amount of unstageable tissue noted. Puncture wound is noted to left back and is covered with bandage. Skin tears noted to left and right forearms. No belongings.
[2022-07-05 17:31] LABS: Glucose Point of Care 391 mg/dL (70-110)
[2022-07-05] MEDS: FUROsemide 10 mg/mL SDV 4mL 40 MG IVP (17:55)
[2022-07-05] MEDS: insulin lispro 100 unit/1 mL SUBCUT ×2 (17:55→20:42)
--- NOTE | 2022-07-05 18:31 | PC.NURSE ---
Addendum entered by Gertrudis Hart RN 07/05/22 18:50: Dr. Sanabria aware and entered new orders. Original Note: This nurse entered room and patient had taken bipap off and was attempting to pull fierro out and other lines off. Patient was unable to answer orientation questions.
[2022-07-05] MEDS: budesonide 0.5 mg/2 mL Neb INHALATION (19:52)
[2022-07-05 21:07] LABS: Glucose Point of Care 300 mg/dL (70-110)
[2022-07-06] VITALS (36 sets, daily range): BP systolic 98–135; BP diastolic 37–92; PULSE 75–91; RESP 16–21; TEMP 36.8–37.1; O2SAT 81–98; BMI 28.5
[2022-07-06] MEDS: famotidine 20 mg/2 mL INJ IVP (01:58)
[2022-07-06] MEDS: meropenem 1,000 MG in sodium chloride 0.9% (plus) 50 ML 100 MG IV ×2 (01:58→13:51)
[2022-07-06] MEDS: heparin 5,000 unit/mL INJ 1 mL 5000 UNIT SUBCUT ×2 (01:58→13:50)
[2022-07-06] MEDS: ipratropium-albuterol 3 mL Neb INHALATION ×4 (02:00→20:45)
[2022-07-06 04:29] LABS: Basophils % 0.2 %; Hematocrit 29.9 % (42.0-52.0); Hemoglobin 9.3 g/dL (11.7-16.6); Lymphocytes # 0.6 10^3/uL (0.8-4.8); Lymphocytes % 3.1 %; Mean Corpuscular HGB Conc 31.1 g/dL (30.0-36.0); Mean Corpuscular Hemoglobin 29.8 pg (28.0-34.0); Mean Corpuscular Volume 95.8 fl (80-94); Mean Platelet Volume 10.5 fL (7.4-10.4); Monocytes # 0.2 10^3/uL (0.2-0.9); Monocytes % 0.9 %; Neutrophils # 18.11 10^3/uL (1.8-7.7); Neutrophils % 94.6 %; Nucleated Red Blood Cells % 0 %; Platelet Count 366 10^3/cmm (130-400); Red Blood Count 3.12 10^6/uL (4.1-5.3); Red Cell Distribution Width 15.1 % (12.1-15.1); White Blood Count 19.1 10^3/uL (4.0-10.0)
[2022-07-06 04:52] LABS: Alanine Aminotransferase 9 U/L (0-41); Albumin Level 3.1 g/dL (3.5-5.2); Alkaline Phosphatase 67 U/L (40-130); Anion Gap 17.8 (5-19); Aspartate Amino Transferase 11 U/L (0-40); Blood Urea Nitrogen 46 mg/dL (8-23); C Reactive Protein 71.3 mg/L (0.0-4.9); Calcium 8.4 mg/dL (8.5-10.5); Carbon Dioxide 24 mmol/L (22-29); Chloride 104 mmol/L (98-107); Globulin 2.9 g/dL (1.3-4.6); Glucose 214 mg/dL (65-115); Magnesium 2.2 mg/dL (1.7-2.3); Osmolality Calculated 310 mOsm/kg (285-295); Potassium 4.8 mmol/L (3.5-5.1); Sodium 141 mmol/L (136-145); Total Bilirubin 0.4 mg/dL (0.15-1.2)
[2022-07-06 07:38] LABS: Glucose Point of Care 284 mg/dL (70-110)
[2022-07-06] MEDS: budesonide 0.5 mg/2 mL Neb INHALATION ×2 (08:36→20:45)
--- NOTE | 2022-07-06 08:37 | PC.NURSE ---
Pt confused oriented to self only. Resp even and non-labored no sob or distress noted. Pt O2 94% on RA. Pt had no c/o pain or discomfort at the time present time. Will cont to monitor.
[2022-07-06] MEDS: vancomycin 1,000 MG in sodium chloride 0.9% 250 ML 250 MG IV (10:05)
[2022-07-06] MEDS: dexamethasone 10 mg/mL INJ 6 MG IVP (10:05)
[2022-07-06] MEDS: insulin lispro 100 unit/1 mL SUBCUT ×2 (10:06→11:40)
--- NOTE | 2022-07-06 10:29 | P.PN_ITS ---
Subjective Subjective: Kajal is alert this morning but confused. He does not appear to be in any respiratory distress. Currently on 3 L. Medications: Reviewed: Yes Vitals/I&O/Wt Last Vital Signs Temp 98.7 F 07/06/22 08:00 Pulse 85 07/06/22 08:42 Resp 16 07/06/22 08:40 BP 132/50 07/06/22 08:00 Pulse Ox 95 07/06/22 08:40 O2 Del Method 07/06/22 08:40 O2 Flow Rate 3 07/06/22 08:40 FiO2 30 07/06/22 08:00 07/05/22 07/06/22 07/06/22 22:59 06:59 14:59 Intake Total 270 / 570 370 / 940 Output Total 325 / 325 750 / 1075 Balance -55 / 245 -380 / -135 Weight last 48 hrs Weight 80.331 kg Weight 85.275 kg Physical Exam Narrative: General exam is a white male, confused, but more conversive than yesterday Neck is supple no lymphadenopathy or thyromegaly Cardiovascular regular rate and rhythm with a 2/6 systolic murmur Lungs clear but with diminished breath sounds bilaterally Abdomen is soft with positive bowel sounds. 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 Neuro no obvious focal deficits Skin no rash Urinary Catheter Management: Valdovinos: Cath Placed During This Visit: yes Reason for Continuing Indwelling Catheter: Accurate Measurement of Urinary Output in Critically Ill Patients Urinary Catheter Date of Insertion: 07/05/22 Urinary Catheter Time of Insertion: 10:54 Data 07/06/22 03:58 07/06/22 03:58 Micro: Microbiology 07/05/22 09:26 Blood Culture - Preliminary Blood NEGATIVE TO DATE 07/05/22 09:26 Blood Culture - Preliminary Blood NEGATIVE TO DATE 07/05/22 13:00 Gram Stain - Final Pleural Fluid A&P Assessment and plan (1) Acute respiratory failure with hypoxia: Improved. BiPAP has been weaned off Thoracentesis yesterday with around 900 cc removed. Consistent with transudate. Gram stain negative for bacteria (2) Pneumonia due to COVID-19 virus: Patient presents with positive PCR With significant effusion, hypoxia will initiate dexamethasone 6 mg IV daily as well as be remdesivir Procalcitonin was not elevated Continue vancomycin, meropenem. Await sputum culture, blood culture, MRSA PCR. Blood culture negative to date CRP mildly elevated on admission. Repeat tomorrow (3) Bilateral pleural effusion: Patient has bilateral pleural effusions. This can be seen with infection, congestive heart failure, or even COVID. Fluid appeared light yellow consistent with transudate but laboratories pending Thoracentesis has been performed by radiology July 05, around 900 cc removed. This was transudative. Gram stain no organisms. Repeat chest x-ray tomorrow (4) Anemia: Patient with history of anemia, and transfusion of 1 unit packed red blood cells last hospital stay with his amputation. (5) CRISTINO (acute kidney injury): Appears to have acute on chronic kidney injury. Cannot rule out some element of CHF considering his bilateral pleural effusions. BNP was elevated (6) UTI (urinary tract infection): IV antibiotics as above, meropenem, vancomycin currently (7) History of type 2 diabetes mellitus: Sliding scale insulin Plan Acute metabolic encephalopathy. Multiple possible causes including hypoxia, UTI, acute kidney injury, COVID. Perhaps slightly improved elevated BNP. Echo demonstrates preserved EF, 1/4 diastolic dysfunction. Still cannot completely rule out congestive heart failure, diastolic considering his bilateral pleural effusions and elevated BNP. We will go ahead and initiate oral diuretic today, 40 mg daily and follow creatinine closely. Multiple other medical problems as outlined in past medical history Full code Heparin for DVT prophylaxis Attestations Medical Necessity Statement*: Needs continued hospital stay for treatment of COVID-pneumonia as well as possible bacterial pneumonia with IV antivirals and antibiotics. May transfer to floor. Coding Level of Care Code Acute Deputy Editor In Chief for [facility] Diagnoses Acute respiratory failure with hypoxia J96.01 Pneumonia due to COVID-19 virus U07.1; J12.82 Bilateral pleural effusion J90 Anemia D64.9 CRISTINO (acute kidney injury) N17.9 UTI (urinary tract infection) N39.0 History of type 2 diabetes mellitus Z86.39
[2022-07-06] MEDS: FUROsemide 40 mg Tablet PO (11:14)
[2022-07-06 11:57] LABS: Glucose Point of Care 296 mg/dL (70-110)
[2022-07-06 17:56] LABS: Glucose Point of Care 79 mg/dL (70-110)
[2022-07-06] MEDS: famotidine 20 mg Tablet PO (20:46)
[2022-07-06 20:48] LABS: Glucose Point of Care 91 mg/dL (70-110)
[2022-07-06] MEDS: remdesivir 100 MG in sodium chloride 0.9% (100 ml) 80 ML IV (21:29)
--- NOTE | 2022-07-06 21:34 | PC.NURSE ---
This nurse called the pharmacy to have the first dose of remdesivir re timed and they told this nurse to hang it late. Delay in IV access in the reason for the medication to be hung at the time it was in the MAR. The prior IV was pulled out by the patient. The patient was educated to leave this IV site alone as for the medication is very important. The patient verbalized understanding, but continues to pull at the new line.
[2022-07-07] VITALS (14 sets, daily range): BP systolic 126–155; BP diastolic 61–86; PULSE 76–89; RESP 14–20; TEMP 36.6–36.9; O2SAT 89–97
[2022-07-07] MEDS: heparin 5,000 unit/mL INJ 1 mL 5000 UNIT SUBCUT ×2 (00:59→12:15)
[2022-07-07] MEDS: meropenem 1,000 MG in sodium chloride 0.9% (plus) 50 ML 100 MG IV ×2 (00:59→14:51)
[2022-07-07] MEDS: ipratropium-albuterol 3 mL Neb INHALATION ×4 (02:58→21:13)
[2022-07-07 05:08] LABS: Basophils % 0.1 %; Hematocrit 28.4 % (42.0-52.0); Lymphocytes # 0.5 10^3/uL (0.8-4.8); Lymphocytes % 2.6 %; Mean Corpuscular HGB Conc 31.7 g/dL (30.0-36.0); Mean Corpuscular Hemoglobin 29.2 pg (28.0-34.0); Mean Corpuscular Volume 92.2 fl (80-94); Mean Platelet Volume 10.6 fL (7.4-10.4); Monocytes # 0.5 10^3/uL (0.2-0.9); Monocytes % 2.4 %; Neutrophils # 18.91 10^3/uL (1.8-7.7); Neutrophils % 93.3 %; Nucleated Red Blood Cells % 0 %; Platelet Count 368 10^3/cmm (130-400); Red Blood Count 3.08 10^6/uL (4.1-5.3); Red Cell Distribution Width 15.1 % (12.1-15.1); White Blood Count 20.3 10^3/uL (4.0-10.0)
[2022-07-07 05:32] LABS: Alanine Aminotransferase 9 U/L (0-41); Albumin Level 2.8 g/dL (3.5-5.2); Alkaline Phosphatase 68 U/L (40-130); Aspartate Amino Transferase 12 U/L (0-40); Blood Urea Nitrogen 49 mg/dL (8-23); C Reactive Protein 45.3 mg/L (0.0-4.9); Calcium 8.2 mg/dL (8.5-10.5); Carbon Dioxide 23 mmol/L (22-29); Chloride 103 mmol/L (98-107); Glucose 160 mg/dL (65-115); Osmolality Calculated 306 mOsm/kg (285-295); Sodium 140 mmol/L (136-145); Total Bilirubin 0.3 mg/dL (0.15-1.2); Total Protein 5.8 g/dL (6.6-8.7)
[2022-07-07 06:40] LABS: Glucose Point of Care 184 mg/dL (70-110)
--- NOTE | 2022-07-07 07:00 | XR_ITS ---
WS: [id number] XR chest 1V portable [id number] REASON FOR EXAM: Follow-up pleural effusion FINDINGS: Opacification in the left lower hemithorax, residual pleural effusion and atelectasis in the left low er lung. Compared to the previous examination of 07/05/2019 the atelectasis in the left lower lung is more pron ounced. Moderate pleural effusion in the right hemithorax with right lower lung atelectasis is not readily ap preciated on and is presumed posterior behind the dome of the right hemidiaphragm, increased density between the hepatic flexure and abdomen the diaphragm. XR/XR chest 1V portable [id number] IMPRESSION: There appears to be more profound atelectasis in the left lower lung compared t o the examination of 07/05/2019.
--- NOTE | 2022-07-07 07:01 | US_ITS ---
WS: [id number] RENAL ULTRASOUND HISTORY: renal failure COMPARISON: None available. TECHNIQUE: 2-D and color Doppler imaging of the kidney submitted. Right kidney: 11.3 cm x 5.5 cm x 6.2 cm. Normal echogenicity with no hydronephrosis or mass. Left kidney: 11.3 cm x 5.5 cm x 5.3 cm. Limited visualization of the LEFT kidney due to body habitus. No abnormality is identified. No hydron ephrosis. Aorta: Normal. Urinary Bladder: Valdovinos catheter present in a nondistended urinary bladder. US/US renal BI* [id number] IMPRESSION: 1. Normal size kidneys with no hydronephrosis. 2. Limited evaluation of the LEFT kidney due to body habitus.
--- NOTE | 2022-07-07 07:13 | P.PN_ITS ---
Subjective Subjective: Tomer seems a little confused this morning but is able to recognize it is morning, he is polite, he asked when breakfast is going to be here. Denies any shortness of breath. Medications: Reviewed: Yes Vitals/I&O/Wt Last Vital Signs Temp 98.1 F 07/07/22 04:00 Pulse 85 07/07/22 06:07 Resp 20 H 07/07/22 04:00 BP 146/73 07/07/22 04:00 Pulse Ox 96 07/07/22 04:00 O2 Del Method 07/07/22 03:00 O2 Flow Rate 3 07/07/22 03:00 FiO2 30 07/07/22 03:00 07/06/22 07/07/22 07/07/22 22:59 06:59 14:59 Intake Total 520 / 545 1000 / 1545 Output Total 1000 / 1000 650 / 1650 Balance -480 / -455 350 / -105 Weight last 48 hrs Weight 79 kg Weight 80.331 kg Weight 85.275 kg Physical Exam Narrative: General exam is a white male, slightly confused but conversant. Likely near baseline. Neck is supple no lymphadenopathy or thyromegaly Cardiovascular regular rate and rhythm with a 2/6 systolic murmur Lungs clear but with diminished breath sounds bilaterally Abdomen is soft with positive bowel sounds. 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 Neuro no obvious focal deficits Skin no rash Urinary Catheter Management: Valdovinos: Cath Placed During This Visit: yes Reason for Continuing Indwelling Catheter: Other Urinary Catheter Date of Insertion: 07/05/22 Urinary Catheter Time of Insertion: 10:54 Data 07/07/22 04:29 07/07/22 04:29 Micro: Microbiology 07/05/22 13:00 Gram Stain - Final Pleural Fluid Body Fluid Culture - Preliminary 07/05/22 18:00 MRSA Culture - Final Nose 07/05/22 10:55 Urine Culture - Preliminary Urine,Clean Catch Gram Negative Rods 07/05/22 09:26 Blood Culture - Preliminary Blood NEGATIVE TO DATE 07/05/22 09:26 Blood Culture - Preliminary Blood NEGATIVE TO DATE A&P Assessment and plan (1) Acute respiratory failure with hypoxia: Improved. BiPAP has been weaned off Thoracentesis July 05 with around 900 cc removed. Consistent with transudate. Gram stain negative for bacteria. Culture negative to date (2) Pneumonia due to COVID-19 virus: Patient presents with positive PCR With significant effusion, hypoxia will initiate dexamethasone 6 mg IV daily as well as be remdesivir Procalcitonin was not elevated Continue vancomycin, meropenem. Await sputum culture, blood culture. Blood culture negative to date MRSA PCR negative. If cultures negative tomorrow from pleural fluid would discontinue vancomycin CRP mildly elevated on admission. CRP trending downward (3) Bilateral pleural effusion: Patient has bilateral pleural effusions. This can be seen with infection, congestive heart failure, or even COVID. Fluid appeared light yellow consistent with transudate but laboratories pending Thoracentesis has been performed by radiology July 05, around 900 cc removed. This was transudative. Gram stain no organisms. Repeat chest x-ray demonstrates small residual effusion but no worsening from when fluid was remov ed Echocardiogram demonstrates EF around 67%, 1/4 diastolic dysfunction. (4) Anemia: Patient with history of anemia, and transfusion of 1 unit packed red blood cells last hospital stay with his amputation. (5) CRISTINO (acute kidney injury): Appears to have acute on chronic kidney injury. Cannot rule out some element of CHF considering his bilateral pleural effusions. BNP was elevated. Lasix was given. Hold p.o. Lasix today as BUN/creatinine increasing. Recheck again tomorrow. At this point do not believe IV fluids are indicated. (6) UTI (urinary tract infection): IV antibiotics as above, meropenem, vancomycin currently. Urine growing gram- negative everardo currently, awaiting identification and sensitivity (7) History of type 2 diabetes mellitus: Sliding scale insulin Plan Acute metabolic encephalopathy. Multiple possible causes including hypoxia, UTI, acute kidney injury, COVID. This appears to be improving Multiple other medical problems as outlined in past medical history Full code Heparin for DVT prophylaxis Attestations Medical Necessity Statement*: Needs continued hospital stay for IV antibiotics secondary to pneumonia, treatment for COVID. Possible discharge back to the nursing facility and 2 to 3 days. Coding Level of Care Code Acute Code for [facility] Diagnoses Acute respiratory failure with hypoxia J96.01 Pneumonia due to COVID-19 virus U07.1; J12.82 Bilateral pleural effusion J90 Anemia D64.9 CRISTINO (acute kidney injury) N17.9 UTI (urinary tract infection) N39.0 History of type 2 diabetes mellitus Z86.39
[2022-07-07] MEDS: budesonide 0.5 mg/2 mL Neb INHALATION ×2 (08:44→21:12)
[2022-07-07] MEDS: insulin lispro 100 unit/1 mL SUBCUT ×3 (09:34→21:58)
[2022-07-07] MEDS: vancomycin 1,000 MG in sodium chloride 0.9% 250 ML 250 MG IV (09:43)
[2022-07-07] MEDS: atenolol 50 mg Tablet PO (09:44)
[2022-07-07] MEDS: dexamethasone 10 mg/mL INJ 6 MG IVP (09:44)
[2022-07-07] MEDS: famotidine 20 mg Tablet PO ×2 (09:44→17:56)
[2022-07-07 11:33] LABS: Glucose Point of Care 206 mg/dL (70-110)
[2022-07-07 16:55] LABS: Glucose Point of Care 125 mg/dL (70-110)
[2022-07-07] MEDS: remdesivir 100 MG in sodium chloride 0.9% (100 ml) 80 ML IV (17:29)
[2022-07-07 21:43] LABS: Glucose Point of Care 219 mg/dL (70-110)
[2022-07-08] VITALS (10 sets, daily range): BP systolic 113–152; BP diastolic 45–73; PULSE 69–100; RESP 12–23; TEMP 36.4–36.7; O2SAT 90–94
[2022-07-08] MEDS: heparin 5,000 unit/mL INJ 1 mL 5000 UNIT SUBCUT ×2 (00:55→13:32)
[2022-07-08] MEDS: meropenem 1,000 MG in sodium chloride 0.9% (plus) 50 ML 100 MG IV ×2 (00:55→12:39)
--- NOTE | 2022-07-08 03:41 | PC.NURSE ---
pt pulled out his IV, This nurse attempted to start a new IV and was unsuccessful. Notified charge nurse whom states she will try to attempt IV placement.
[2022-07-08 05:20] LABS: Basophils % 0.1 %; Eosinophils % 0.2 %; Hematocrit 29.4 % (42.0-52.0); Hemoglobin 9.3 g/dL (11.7-16.6); Lymphocytes # 0.4 10^3/uL (0.8-4.8); Lymphocytes % 3.1 %; Mean Corpuscular HGB Conc 31.6 g/dL (30.0-36.0); Mean Corpuscular Hemoglobin 30.3 pg (28.0-34.0); Mean Corpuscular Volume 95.8 fl (80-94); Mean Platelet Volume 10.5 fL (7.4-10.4); Monocytes # 0.8 10^3/uL (0.2-0.9); Monocytes % 5.9 %; Neutrophils # 12.52 10^3/uL (1.8-7.7); Neutrophils % 89.1 %; Nucleated Red Blood Cells % 0 %; Platelet Count 348 10^3/cmm (130-400); Red Blood Count 3.07 10^6/uL (4.1-5.3); Red Cell Distribution Width 15.3 % (12.1-15.1); White Blood Count 14.1 10^3/uL (4.0-10.0)
[2022-07-08 05:58] LABS: Anion Gap 13.9 (5-19); Blood Urea Nitrogen 45 mg/dL (8-23); Calcium 8.2 mg/dL (8.5-10.5); Carbon Dioxide 27 mmol/L (22-29); Chloride 106 mmol/L (98-107); Glucose 95 mg/dL (65-115); Osmolality Calculated 307 mOsm/kg (285-295); Potassium 3.9 mmol/L (3.5-5.1); Sodium 143 mmol/L (136-145)
--- NOTE | 2022-07-08 06:20 | PC.NURSE ---
22g IV placed in pts right wrist. pt tolerated well.
[2022-07-08 06:51] LABS: Glucose Point of Care 131 mg/dL (70-110)
[2022-07-08] MEDS: ipratropium-albuterol 3 mL Neb INHALATION ×3 (08:18→22:06)
[2022-07-08] MEDS: budesonide 0.5 mg/2 mL Neb INHALATION ×2 (08:18→22:07)
[2022-07-08 09:39] LABS: Vancomycin Trough 22.8 ug/mL (10-15)
[2022-07-08] MEDS: atenolol 50 mg Tablet PO (10:30)
[2022-07-08] MEDS: famotidine 20 mg Tablet PO ×2 (10:30→17:38)
[2022-07-08] MEDS: dexamethasone 10 mg/mL INJ 6 MG IVP (10:30)
[2022-07-08] MEDS: vancomycin 1,000 MG in sodium chloride 0.9% 250 ML 250 MG IV (10:40)
[2022-07-08 11:32] LABS: Glucose Point of Care 212 mg/dL (70-110)
--- NOTE | 2022-07-08 12:09 | PC.SOCIAL ---
IMM Update pg 2 of IMM updated and reviewed w/ patient. Copy provided and Copy dated, initialed and placed in chart.
--- NOTE | 2022-07-08 12:17 | PM.PN ---
Subjective Subjective: Patient is slightly lethargic. He is confused. Appears to be a poor historian and his current clinical condition. He endorses chills. Requests he be turned up. Denies fevers, nausea, or emesis. Medications: Reviewed: Yes Vitals/I&O/Wt Last Vital Signs Temp 98.0 F 07/08/22 08:00 Pulse 88 07/08/22 08:20 Resp 18 07/08/22 08:20 BP 129/67 07/08/22 08:00 Pulse Ox 90 07/08/22 08:20 O2 Del Method 07/08/22 08:20 O2 Flow Rate 3 07/08/22 08:20 FiO2 30 07/07/22 03:00 07/07/22 07/08/22 07/08/22 22:59 06:59 14:59 Intake Total 400 / 400 290 / 690 0 / 0 Output Total 150 / 150 350 / 500 Balance 250 / 250 -60 / 190 0 / 0 Weight last 48 hrs Weight 79 kg Physical Exam Narrative: General: Patient is slightly lethargic. Arouses to stimulation. Frail-appearing. Head: Normocephalic. Atraumatic. EOM intact. Hard hearing. Neck: No JVD. Cardiovascular: RRR. No gallops. Systolic ejection murmur. Lower extremity edema present. Lungs: Breath sounds are diminished at bilateral bases, no use of accessory muscles, no crackles or wheezes. Skin: No jaundice. No rashes. Abdomen: Normal bowel sounds, abdomen soft and nontender. Genito Urinary: Genital exam not performed since complaints not related. Rectal: Rectal exam not performed since no symptoms indicated blood loss. Extremities: No cyanosis or clubbing. Musculoskeletal: Normal range of motion, no swollen or erythematous joints. Neurological: Moves all 4 extremities. No myoclonus. Urinary Catheter Management: Valdovinos: Cath Placed During This Visit: yes Reason for Continuing Indwelling Catheter: Other Urinary Catheter Date of Insertion: 07/05/22 Urinary Catheter Time of Insertion: 10:54 Data 07/08/22 04:30 07/08/22 04:30 Micro: Microbiology 07/05/22 10:55 Urine Culture - Final Urine,Clean Catch Proteus mirabilis esbl 07/05/22 13:00 Gram Stain - Final Pleural Fluid Body Fluid Culture - Preliminary A&P Assessment and plan (1) Acute respiratory failure with hypoxia: Patient currently on 3 L nasal cannula Continued chest vest Acapella Inspiratory spirometer Continuous pulse oximetry (2) Pneumonia due to COVID-19 virus: Blood cultures remain negative Continue dexamethasone Continue remdesivir Airborne precautions MRSA negative Discontinue vancomycin Continue meropenem Follow-up sputum culture (3) Acute metabolic encephalopathy: Treat underlying infection Frequent reorientation At baseline, he reportedly is normally conversational per NH report (4) Bilateral pleural effusion: Associated with transudative pleural effusion Status postthoracentesis with removal of 900 mL on 07/05 (5) Anemia: Continue to monitor blood counts Hemoglobin 9.3 (6) CRISTINO (acute kidney injury): Acute on chronic kidney injury Creatinine slightly improved at 1.6 Encourage oral intake Trend renal function Avoid nephrotoxins Renally dose medications (7) UTI (urinary tract infection): Urine culture with ESBL Proteus Mirabellas Continue meropenem (8) History of type 2 diabetes mellitus: Sliding scale insulin Plan DVT prophylaxis: Heparin CODE STATUS: Full code Attestations Medical Necessity Statement*: Patient with COVID-19 with respiratory failure, ESBL urinary tract infection, and acute metabolic encephalopathy requiring ongoing hospitalization for IV antibiotics, IV steroids, IV remdesivir, and supportive care. Coding Level of Care Code Acute Code for [facility] Diagnoses Acute respiratory failure with hypoxia J96.01 Pneumonia due to COVID-19 virus U07.1; J12.82 Acute metabolic encephalopathy G93.41 Bilateral pleural effusion J90 Anemia D64.9 CRISTINO (acute kidney injury) N17.9 UTI (urinary tract infection) N39.0 History of type 2 diabetes mellitus Z86.39
[2022-07-08] MEDS: insulin lispro 100 unit/1 mL SUBCUT ×3 (13:31→21:35)
[2022-07-08 17:03] LABS: Glucose Point of Care 324 mg/dL (70-110)
[2022-07-08 20:39] LABS: Glucose Point of Care 296 mg/dL (70-110)
[2022-07-08] MEDS: remdesivir 100 MG in sodium chloride 0.9% (100 ml) 80 ML IV (23:54)
[2022-07-09] VITALS (13 sets, daily range): BP systolic 109–176; BP diastolic 52–76; PULSE 0–83; RESP 16–20; TEMP 36.4–36.9; O2SAT 89–94
[2022-07-09] MEDS: meropenem 1,000 MG in sodium chloride 0.9% (plus) 50 ML 100 MG IV ×2 (00:58→14:01)
[2022-07-09] MEDS: heparin 5,000 unit/mL INJ 1 mL 5000 UNIT SUBCUT ×2 (00:58→14:02)
[2022-07-09] MEDS: ipratropium-albuterol 3 mL Neb INHALATION ×4 (02:50→21:14)
[2022-07-09 04:48] LABS: Basophils % 0.1 %; Hemoglobin 9.3 g/dL (11.7-16.6); Lymphocytes # 0.5 10^3/uL (0.8-4.8); Lymphocytes % 4.4 %; Mean Corpuscular Hemoglobin 29.5 pg (28.0-34.0); Mean Corpuscular Volume 95.2 fl (80-94); Mean Platelet Volume 10.7 fL (7.4-10.4); Monocytes # 0.4 10^3/uL (0.2-0.9); Monocytes % 3.2 %; Neutrophils % 91.1 %; Nucleated Red Blood Cells % 0 %; Platelet Count 343 10^3/cmm (130-400); Red Blood Count 3.15 10^6/uL (4.1-5.3); Red Cell Distribution Width 15.1 % (12.1-15.1); White Blood Count 12.3 10^3/uL (4.0-10.0)
[2022-07-09 05:31] LABS: Alanine Aminotransferase 7 U/L (0-41); Albumin Level 2.6 g/dL (3.5-5.2); Alkaline Phosphatase 61 U/L (40-130); Anion Gap 16.9 (5-19); Aspartate Amino Transferase 12 U/L (0-40); Blood Urea Nitrogen 48 mg/dL (8-23); Calcium 7.8 mg/dL (8.5-10.5); Carbon Dioxide 22 mmol/L (22-29); Chloride 104 mmol/L (98-107); Globulin 2.7 g/dL (1.3-4.6); Glucose 177 mg/dL (65-115); Osmolality Calculated 305 mOsm/kg (285-295); Potassium 3.9 mmol/L (3.5-5.1); Sodium 139 mmol/L (136-145); Total Bilirubin 0.4 mg/dL (0.15-1.2); Total Protein 5.3 g/dL (6.6-8.7)
[2022-07-09 06:30] LABS: Glucose Point of Care 202 mg/dL (70-110)
[2022-07-09] MEDS: budesonide 0.5 mg/2 mL Neb INHALATION ×2 (08:11→21:14)
[2022-07-09] MEDS: insulin lispro 100 unit/1 mL SUBCUT ×4 (11:10→21:22)
[2022-07-09] MEDS: famotidine 20 mg Tablet PO ×2 (11:11→18:53)
[2022-07-09] MEDS: dexamethasone 10 mg/mL INJ 6 MG IVP (11:11)
[2022-07-09] MEDS: atenolol 50 mg Tablet PO (11:11)
[2022-07-09 11:40] LABS: Glucose Point of Care 243 mg/dL (70-110)
--- NOTE | 2022-07-09 15:00 | PM.PN ---
Subjective Subjective: Patient remains confused. He is not oriented. He denies any acute complaints including fevers, chills, chest pain or abdominal pain. Denies shortness of breath or cough. Medications: Reviewed: Yes Vitals/I&O/Wt Last Vital Signs Temp 98.0 F 07/09/22 11:48 Pulse 73 07/09/22 14:00 Resp 18 07/09/22 14:00 BP 144/65 07/09/22 11:48 Pulse Ox 91 07/09/22 14:00 O2 Del Method 07/09/22 14:00 O2 Flow Rate 3 07/09/22 14:00 FiO2 30 07/07/22 03:00 07/09/22 07/09/22 07/09/22 06:59 14:59 22:59 Intake Total 150 / 750 60 / 60 Output Total 350 / 650 250 / 250 Balance -200 / 100 -190 / -190 Weight last 48 hrs Weight 75.478 kg Physical Exam Narrative: General: Patient is slightly lethargic. Frail-appearing. Head: Normocephalic. Atraumatic. EOM intact. Hard of hearing. Neck: No JVD. Cardiovascular: RRR. No gallops. Systolic ejection murmur. Lower extremity edema present. Lungs: Breath sounds are diminished at bilateral bases, no use of accessory muscles, no crackles or wheezes. Skin: No jaundice. No rashes. Abdomen: Normal bowel sounds, abdomen soft and nontender. Genito Urinary: Genital exam not performed since complaints not related. Rectal: Rectal exam not performed since no symptoms indicated blood loss. Extremities: No cyanosis or clubbing. Musculoskeletal: Normal range of motion. Bilateral BKA, right with surgical site stapled. Neurological: Moves all 4 extremities. No myoclonus. Urinary Catheter Management: Valdovinos: Cath Placed During This Visit: yes Reason for Continuing Indwelling Catheter: Other Urinary Catheter Date of Insertion: 07/05/22 Urinary Catheter Time of Insertion: 10:54 Data 07/09/22 04:26 07/09/22 04:26 Micro: Microbiology 07/05/22 13:00 Gram Stain - Final Pleural Fluid Body Fluid Culture - Final 07/05/22 10:55 Urine Culture - Final Urine,Clean Catch Proteus mirabilis esbl A&P Assessment and plan (1) Acute respiratory failure with hypoxia: Patient currently on 3 L nasal cannula Continued chest vest Acapella Inspiratory spirometer Continuous pulse oximetry (2) Pneumonia due to COVID-19 virus: Blood cultures NG at 5 days Continue dexamethasone Continue remdesivir Airborne precautions Continue meropenem (07/05-present) (3) Acute metabolic encephalopathy: Treat underlying infection Frequent reorientation At baseline, he reportedly is normally conversational per NH report (4) Bilateral pleural effusion: Associated with transudative pleural effusion Status postthoracentesis with removal of 900 mL on 07/05 (5) Anemia: Continue to monitor blood counts Hemoglobin 9.3 (6) CRISTINO (acute kidney injury): Acute on chronic kidney injury Creatinine slightly improved at 1.4 Encourage oral intake Trend renal function Avoid nephrotoxins Renally dose medications (7) UTI (urinary tract infection): Urine culture with ESBL Proteus [place]ellas Continue meropenem (8) History of type 2 diabetes mellitus: Sliding scale insulin Plan DVT prophylaxis: Heparin CODE STATUS: Full code Attestations Medical Necessity Statement*: Patient with COVID-19 with respiratory failure, ESBL urinary tract infection, and acute metabolic encephalopathy requiring ongoing hospitalization for IV antibiotics, IV steroids, IV remdesivir, and supportive care. Coding Level of Care Code Acute Code for [facility] Diagnoses Acute respiratory failure with hypoxia J96.01 Pneumonia due to COVID-19 virus U07.1; J12.82 Acute metabolic encephalopathy G93.41 Bilateral pleural effusion J90 Anemia D64.9 CRISTINO (acute kidney injury) N17.9 UTI (urinary tract infection) N39.0 History of type 2 diabetes mellitus Z86.39
[2022-07-09 17:10] LABS: Glucose Point of Care 177 mg/dL (70-110)
[2022-07-09 20:30] LABS: Glucose Point of Care 241 mg/dL (70-110)
[2022-07-10] VITALS (9 sets, daily range): BP systolic 129–153; BP diastolic 63–66; PULSE 0–80; RESP 15–19; TEMP 36.4–36.8; O2SAT 84–97
[2022-07-10] MEDS: remdesivir 100 MG in sodium chloride 0.9% (100 ml) 80 ML IV (00:33)
[2022-07-10] MEDS: heparin 5,000 unit/mL INJ 1 mL 5000 UNIT SUBCUT ×2 (00:33→14:21)
[2022-07-10] MEDS: meropenem 1,000 MG in sodium chloride 0.9% (plus) 50 ML 100 MG IV (01:41)
[2022-07-10] MEDS: ipratropium-albuterol 3 mL Neb INHALATION ×3 (02:38→13:45)
[2022-07-10 06:11] LABS: Basophils % 0.1 %; Hematocrit 33.2 % (42.0-52.0); Hemoglobin 10.5 g/dL (11.7-16.6); Lymphocytes # 0.7 10^3/uL (0.8-4.8); Lymphocytes % 3.8 %; Mean Corpuscular HGB Conc 31.6 g/dL (30.0-36.0); Mean Corpuscular Hemoglobin 29.7 pg (28.0-34.0); Mean Corpuscular Volume 94.1 fl (80-94); Mean Platelet Volume 10.7 fL (7.4-10.4); Monocytes # 0.6 10^3/uL (0.2-0.9); Monocytes % 3.6 %; Neutrophils # 15.68 10^3/uL (1.8-7.7); Neutrophils % 90.9 %; Nucleated Red Blood Cells % 0 %; Platelet Count 383 10^3/cmm (130-400); Red Blood Count 3.53 10^6/uL (4.1-5.3); Red Cell Distribution Width 15.2 % (12.1-15.1); White Blood Count 17.2 10^3/uL (4.0-10.0)
[2022-07-10 06:30] LABS: Albumin Level 2.8 g/dL (3.5-5.2); Anion Gap 18.1 (5-19); Blood Urea Nitrogen 51 mg/dL (8-23); Calcium 8.2 mg/dL (8.5-10.5); Carbon Dioxide 24 mmol/L (22-29); Chloride 105 mmol/L (98-107); Glucose 256 mg/dL (65-115); Phosphorus 2.6 mg/dL (2.5-4.5); Potassium 4.1 mmol/L (3.5-5.1); Sodium 143 mmol/L (136-145)
[2022-07-10 06:45] LABS: Glucose Point of Care 240 mg/dL (70-110)
[2022-07-10] MEDS: budesonide 0.5 mg/2 mL Neb INHALATION (09:01)
[2022-07-10] MEDS: dexamethasone 10 mg/mL INJ 6 MG IVP (09:43)
[2022-07-10] MEDS: atenolol 50 mg Tablet PO (09:43)
[2022-07-10] MEDS: famotidine 20 mg Tablet PO (09:43)
[2022-07-10] MEDS: insulin lispro 100 unit/1 mL SUBCUT ×2 (09:43→14:22)
--- NOTE | 2022-07-10 11:25 | PC.SOCIAL ---
IMM Updated Updated pt & family on IMM. No questions voiced. Provided pt a copy. Initialed, dated, & timed copy in chart.
[2022-07-10 12:08] LABS: Glucose Point of Care 313 mg/dL (70-110)
--- NOTE | 2022-07-10 12:31 | P.DS_ITS ---
Discharge Providers Date of Admission: 07/05/22 12:44 Date of Discharge: July 10, 2022 Attending Provider at Admission: Musa Sanabria MD Attending Provider at Discharge: Alexx Sebastian MD Primary Care Provider: Becky Moon DO Diagnoses at Discharge Discharge Diagnosis (1) Acute respiratory failure with hypoxia: Status: Acute (2) Pneumonia due to COVID-19 virus: Status: Acute (3) Acute metabolic encephalopathy: Status: Acute (4) Bilateral pleural effusion: Status: Acute (5) Anemia: Status: Acute (6) CRISTINO (acute kidney injury): Status: Acute (7) UTI (urinary tract infection): Status: Acute (8) History of type 2 diabetes mellitus: Status: Acute Reason for Visit Reason for Visit: Respiratory Distress Hospital Course Hospital Course 86 year old male with recent right lower leg amputation presenting from [facility] retirement with shortness of breath. He was admitted for the management of acute hypoxic respiratory failure secondary to COVID-19 pneumonia: Patient was kept on COVID protocol: Completed 5-day course of remdesivir, was on dexamethasone, supplemental oxygen as needed duo nebs, inhaler, initially on noninvasive positive pressure ventilation,inflammatory markers were trended, blood culture was negative, MRSA PCR was negative, Mycobacterial smear prelim was negative for AFB. Patient responded well to above medical management At the time of discharge he required 3 L oxygen, patient also has left-sided pleural effusion, not significant enough to try for tap.He was discharged on p.o. levofloxacin for additional 7 days renally dosed. urine culture was growing Proteus mirabilis ESBL he was on, meropenem. For UTI he was on meropene. Acute metabolic encephalopathy: Was resolved at the time of discharge he was at his baseline mentation. Patient was also continued to be managed for his other comorbid condition.He responded well to above medical management and was discharged to retirement. Physical Exam Narrative: Alert awake not in acute distress Resp: COMMON NORMALS: clear to auscultation bilaterally EFFORT & INSPECTION: Yes symmetric chest movement AUSCULTATION: clear to auscultation bilaterally OTHER: Diminished air entry over left lung field. Cardio: COMMON NORMALS: regular rate, regular rhythm, S1 normal heart sound present, S2 normal heart sound present, No gallops present (Cardio), No murmurs present (Cardio), No rub (Cardio) and Peripheral pulses 2+ throughout RATE: regular rate RHYTHM: regular rhythm HEART SOUNDS: S1 normal heart sound present and S2 normal heart sound present PERIPHERAL PULSES: Peripheral pulses 2+ throughout GI: COMMON NORMALS: Normal to inspection, nondistended, normoactive bowel sounds present, Soft to palpation, non-tender, No hepatosplenomegaly present and no masses AUSCULTATION: Yes normoactive bowel sounds PALPATION: Yes Soft to palpation and Yes No hepatosplenomegaly present RECTAL EXAM: Yes deferred Extremity: COMMON NORMALS: no clubbing, cyanosis or edema and no pedal edema Urinary Catheter Management: Valdovinos: Cath Placed During This Visit: yes Reason for Continuing Indwelling Catheter: Other Urinary Catheter Date of Insertion: 07/05/22 Urinary Catheter Time of Insertion: 10:54 Discharge Data Studies Completed and Pending Completed Studies During Hospitalization Category Date Time Status CT chest w con* [id number] Stat Cat Scan 07/05/22 09:43 Completed XR chest 1V portable [id number] Routine Exams 07/05/22 13:01 Completed XR chest 1V portable [id number] Routine Exams 07/07/22 07:00 Completed XR chest 1V portable [id number] Stat Exams 07/05/22 08:44 Completed CV. echo complete* [id number] Routine Ultrasound 07/05/22 13:19 Completed US renal BI* [id number] Routine Ultrasound 07/07/22 07:01 Completed US thoracentesis [id number] Stat Ultrasound 07/05/22 11:34 Completed Pending at discharge Category Date Time Status CBC Auto Diff [Complete Blood Count w/Auto] AM LABS Lab 07/11/22 04:00 Ordered CBC Auto Diff [Complete Blood Count w/Auto] AM LABS Lab 07/12/22 04:00 Ordered CBC Auto Diff [Complete Blood Count w/Auto] AM LABS Lab 07/13/22 04:00 Ordered CMP [Comprehensive Metabolic Panel] AM LABS Lab 07/11/22 04:00 Ordered CMP [Comprehensive Metabolic Panel] AM LABS Lab 07/12/22 04:00 Ordered CMP [Comprehensive Metabolic Panel] AM LABS Lab 07/13/22 04:00 Ordered Mycobacteria, Culture w/Fluor Routine Lab 07/05/22 13:00 Received Sputum Culture and Gram Stain Stat Lab 07/05/22 08:44 Uncollected Cytology [PTH] Routine Pth 07/05/22 13:05 Received Radiology Impressions Chest CT 07/05/22 09:43 IMPRESSION: 1. Opacification LEFT hemithorax with pleural effusion and underlying compressive atelectasis LEFT upper lobe and LEFT lower lobe. Complete opacification LEFT mainstem bronchus with fluid/secretions. 2. Small RIGHT pleural effusion with compressive atelectasis. 3. Cardiomegaly. 4. Prominent AP window lymph node measuring 12 mm 5. Stable 12 mm low-attenuation cystic-appearing lesion in the pancreas. Thoracentesis Ultrasound 07/05/22 11:34 IMPRESSION: 1. LEFT thoracentesis yielding 800 cc of fluid. 2. Chest radiograph to follow to evaluate for pneumothorax. Chest X-Ray 07/07/22 07:00 IMPRESSION: There appears to be more profound atelectasis in the left lower lung compared to the examination of 07/05/2019. Renal Ultrasound 07/07/22 07:01 IMPRESSION: 1. Normal size kidneys with no hydronephrosis. 2. Limited evaluation of the LEFT kidney due to body habitus. Laboratory Results WBC 17.2 10^3/uL (4.0-10.0) H 07/10/22 05:56 RBC 3.53 10^6/uL (4.1-5.3) L 07/10/22 05:56 Hgb 10.5 g/dL (11.7-16.6) L 07/10/22 05:56 Hct 33.2 % (42.0-52.0) L 07/10/22 05:56 MCV 94.1 fl (80-94) H 07/10/22 05:56 MCH 29.7 pg (28.0-34.0) 07/10/22 05:56 MCHC 31.6 g/dL (30.0-36.0) 07/10/22 05:56 RDW 15.2 % (12.1-15.1) H 07/10/22 05:56 Plt Count 383 10^3/cmm (130-400) 07/10/22 05:56 MPV 10.7 fL (7.4-10.4) H 07/10/22 05:56 Neut % (Auto) 90.9 % 07/10/22 05:56 Lymph % (Auto) 3.8 % 07/10/22 05:56 [place] % (Auto) 3.6 % 07/10/22 05:56 Eos % (Auto) 0.0 % 07/10/22 05:56 Baso % (Auto) 0.1 % 07/10/22 05:56 Neut # (Auto) 15.68 10^3/uL (1.8-7.7) H 07/10/22 05:56 Lymph # (Auto) 0.7 10^3/uL (0.8-4.8) L 07/10/22 05:56 [place] # (Auto) 0.6 10^3/uL (0.2-0.9) 07/10/22 05:56 Eos # (Auto) 0.0 10^3/uL (0.0-0.8) 07/10/22 05:56 Baso # (Auto) 0.0 10^3/uL (0.0-0.1) 07/10/22 05:56 Nucleated RBC % (auto) 0 % 07/10/22 05:56 Nucleated RBCs # 0.0 /100WBC 07/10/22 05:56 PT 14.70 SECONDS (12.1-14.9) 07/05/22 08:35 INR 1.12 (0.8-1.2) 07/05/22 08:35 APTT 41.8 SECONDS (23.9-36.7) H 07/05/22 08:35 Specimen Type Arterial 07/05/22 08:54 Sample Site Radial, left 07/05/22 08:54 ABG pH 7.36 (7.35-7.45) 07/05/22 08:54 ABG pCO2 46.3 mmHg (35-45) H 07/05/22 08:54 ABG pO2 57.8 mmHg (80.0-100.0) L 07/05/22 08:54 ABG HCO3 26.1 mmol/L (22-26) H 07/05/22 08:54 ABG O2 Saturation 90.7 07/05/22 08:54 ABG Base Excess 0.4 mmol/L (-2.0-2.0) 07/05/22 08:54 Ned Test Pos 07/05/22 08:54 A-a O2 Gradient 77.3 mmHg (5-10) H 07/05/22 08:54 Hematocrit 29.2 % (42-52) L 07/05/22 08:54 Hgb O2 Saturation 89.2 % (95-100) L 07/05/22 08:54 Carboxyhemoglobin 1.4 %THgb (0.4-20.1) 07/05/22 08:54 Methemoglobin 0.3 % (0.4-1.5) L 07/05/22 08:54 Total Hemoglobin 9.5 g/dL (14-18) L 07/05/22 08:54 Sodium 138.0 mmol/L (131-143) 07/05/22 08:54 Potassium 4.8 mmol/L (3.5-5.0) 07/05/22 08:54 Glucose 301.0 mg/dL (70-115) H 07/05/22 08:54 Ionized Calcium 1.2 mmol/L (1.1-1.4) 07/05/22 08:54 O2 Delivery Device Nrb 07/05/22 08:54 O2 Liters/Min 15.0 % 07/05/22 08:54 FiO2 100.0 % 07/05/22 08:54 Meat And Poultry Inspector ID [place] 07/05/22 08:54 Sodium 143 mmol/L (136-145) 07/10/22 05:56 Potassium 4.1 mmol/L (3.5-5.1) 07/10/22 05:56 Chloride 105 mmol/L (98-107) 07/10/22 05:56 Carbon Dioxide 24 mmol/L (22-29) 07/10/22 05:56 Anion Gap 18.1 (5-19) 07/10/22 05:56 BUN 51 mg/dL (8-23) H 07/10/22 05:56 Creatinine 1.5 mg/dL (0.7-1.2) H 07/10/22 05:56 GFR Calculation Not Reportable 07/10/22 05:56 Glucose 256 mg/dL (65-115) H 07/10/22 05:56 POC Glucose 313 mg/dL (70-110) H 07/10/22 11:54 Calculated Osmolality 305 mOsm/kg (285-295) H 07/09/22 04:26 Lactic Acid 1.0 mmol/L (0.5-2.2) 07/05/22 09:26 Calcium 8.2 mg/dL (8.5-10.5) L 07/10/22 05:56 Phosphorus 2.6 mg/dL (2.5-4.5) 07/10/22 05:56 Magnesium 2.2 mg/dL (1.7-2.3) 07/06/22 03:58 Total Bilirubin 0.4 mg/dL (0.15-1.2) 07/09/22 04:26 AST 12 U/L (0-40) 07/09/22 04:26 ALT 7 U/L (0-41) 07/09/22 04:26 Alkaline Phosphatase 61 U/L (40-130) 07/09/22 04:26 C-Reactive Protein 45.3 mg/L (0.0-4.9) H 07/07/22 04:29 NT-Pro-B Natriuret Pep 9318 pg/mL (0-450) H 07/05/22 08:35 Total Protein 5.3 g/dL (6.6-8.7) L 07/09/22 04:26 Albumin 2.8 g/dL (3.5-5.2) L 07/10/22 05:56 Globulin 2.7 g/dL (1.3-4.6) 07/09/22 04:26 Procalcitonin 0.18 ng/mL (0-0.5) 07/05/22 08:35 Urine Color Yellow (Yellow) 07/05/22 10:55 Urine Appearance Cloudy (CLEAR) A 07/05/22 10:55 Urine pH 9 (5-7) H 07/05/22 10:55 Ur Specific [place] 1.015 (1.005-1.030) 07/05/22 10:55 Urine Protein 1+ (Negative) H 07/05/22 10:55 Urine Glucose (UA) Norm (Normal) 07/05/22 10:55 Urine Ketones Negative (Negative) 07/05/22 10:55 Urine Blood 2+ (Negative) H 07/05/22 10:55 Urine Nitrate Negative (Negative) 07/05/22 10:55 Urine Bilirubin Neg (Negative) 07/05/22 10:55 Prot Sulfosalicylic Acd Negative (Negative) 07/05/22 10:55 Urine Urobilinogen Norm mg/dL (Negative) 07/05/22 10:55 Ur Leukocyte Esterase 2+ (Negative) H 07/05/22 10:55 Urine RBC 0-4 /hpf (0-2) H 07/05/22 10:55 Urine WBC 25-40 /hpf (0-5) H 07/05/22 10:55 Ur Squamous Epith Cells 0-4 /hpf (0-5) H 07/05/22 10:55 Triple Phos Crystals 10-15 /hpf H 07/05/22 10:55 Amorphous Sediment Not Reportable 07/05/22 10:55 Urine Bacteria 4+ /hpf (NONE) H 07/05/22 10:55 Fluid Color Pale yellow 07/05/22 13:05 Fluid Appearance Clear 07/05/22 13:05 Fluid WBC 276 /uL 07/05/22 13:05 Fluid RBC 0 10^3/uL 07/05/22 13:05 Fluid Hematocrit Not Reportable 07/05/22 13:05 Fluid Tot Cell Count 349 07/05/22 13:05 Fld Polynuclear WBCs # 0.073 07/05/22 13:05 Fld Polynuclear WBCs % 26.500 % 07/05/22 13:05 Fl Mononucl WBCs #(Auto) 0.203 07/05/22 13:05 Fl Mononuclear % Auto 73.500 % 07/05/22 13:05 Fluid Albumin 1.3 g/dL 07/05/22 13:05 Fluid Creatinine 1.71 (0.7-1.2) H 07/05/22 13:05 Pleural pH 7.00 (6.5-7.5) 07/05/22 13:05 Pleural Total Protein 2.1 g/dL 07/05/22 13:05 Pleural LDH 74 U/L 07/05/22 13:05 Pleural Glucose 337.0 mg/dL 07/05/22 13:05 Pleural Amylase 10.0 U/L 07/05/22 13:05 Pleural Triglycerides 22 mg/dL 07/05/22 13:05 Vancomycin Trough 22.8 ug/mL (10-15) H 07/08/22 09:08 Serum Ketones Negative (Negative) 07/05/22 08:35 Coronavirus 229E (PCR) Not detected (NOT DETECT) 07/05/22 09:06 Influenza Type A Ag negative (Negative) 07/05/22 09:06 Influenza Type B Ag negative (Negative) 07/05/22 09:06 SARS-CoV-2 (PCR) Detected (NOT DETECT) A 07/05/22 09:06 Vitals Last Vital Signs Temp 97.6 F 07/10/22 12:00 Pulse 72 07/10/22 12:00 Resp 19 H 07/10/22 12:00 BP 129/63 07/10/22 12:00 Pulse Ox 92 07/10/22 12:00 O2 Del Method 07/10/22 08:00 O2 Flow Rate 3 07/10/22 08:00 FiO2 30 07/07/22 03:00 Discharge Plan Discharge Patient Disposition: Xfer SNF Condition: Stable Prescriptions: New atenolol 50 mg tablet 50 mg PO DAILY Qty: 30 1RF levofloxacin 750 mg tablet 750 mg PO Q48H 7 Days Qty: 4 0RF Pulmicort Flexhaler 90 mcg/actuation aerosol powdr breath activated 1 inh inhalation BID Qty: 1 1RF Ventolin HFA 90 mcg/actuation HFA aerosol inhaler 1 inh inhalation Q6H PRN (Reason: shortness of breath or wheezing) Qty: 6.7 0RF Continued amlodipine 10 mg tablet 10 mg PO DAILY simvastatin 20 mg tablet 10 mg PO DAILY montelukast 10 mg tablet 10 mg PO DAILY pioglitazone 30 mg tablet 30 mg PO DAILY Tradjenta 5 mg tablet 5 mg PO DAILY cyanocobalamin (vitamin B-12) 100 mcg tablet 100 mcg PO DAILY Qty: 60 0RF ferrous sulfate [Feosol] 325 mg (65 mg iron) tablet 325 mg PO DAILY Qty: 60 0RF senna 8.6 mg Tablet 8.6 mg PO DAILY Tylenol 325 mg Tablet 650 mg PO Q6H PRN (Reason: Pain) hydrocodone-acetaminophen 5-325 mg Tablet 1 tab PO Q4H PRN (Reason: Pain) ondansetron HCl 4 mg Tablet 4 mg PO Q4H PRN (Reason: Nausea) Milk of Magnesia 400 mg/5 mL Suspension 30 ml PO DAILY PRN (Reason: Constipation) Dulcolax (bisacodyl) 10 mg Suppository 10 mg WA DAILY PRN (Reason: Constipation) Fleet Enema 19-7 gram/118 mL Enema 118 ml WA DAILY PRN (Reason: Constipation) Dulcolax (bisacodyl) 5 mg Tablet,Delayed Release (Dr/Ec) 10 mg PO DAILY PRN (Reason: Constipation) Miralax 17 gram/dose powder 17 g PO DAILY Held hydralazine 25 mg tablet 25 mg PO BID Qty: 60 0RF Hold Instructions: Resume on 07/14/22. Discontinued atenolol 100 mg tablet 100 mg PO DAILY Discharge Orders: Discharge Order (Routine); Ordered 07/10/22 Ordered By: Alexx Sebastian Referrals: [facility] [Outside] Becky Moon DO [Primary Care Provider] - Patient Instructions: Atenolol (By mouth), Albuterol (By breathing) (ProAir, AccuNeb, Proventil, Proventil..., Levofloxacin (By mouth), Budesonide (By breathing), COVID-19 (Coronavirus Disease 2019) (DC), COVID-19 and Chronic Health Conditions (DC), Opioid Safety Discharge Attestations Time Spent in Discharge Care*: greater than 30 min Quality Metrics Clinical Quality Measures [ No reported AMI, CVA or VTE this stay] Coding Level of Care Code Acute Chg FW DC note Diagnoses Acute respiratory failure with hypoxia J96.01 Pneumonia due to COVID-19 virus U07.1; J12.82 Acute metabolic encephalopathy G93.41 Bilateral pleural effusion J90 Anemia D64.9 CRSITINO (acute kidney injury) N17.9 UTI (urinary tract infection) N39.0 History of type 2 diabetes mellitus Z86.39
== END 2022-07-10 14:15 | disposition skilled nursing facility (03) | DRG 177 ==
LOC: ER 11:51 → ICU 17:25 → MEDSURG 07-06 14:21
PROVIDERS: Internal Medicine; Admitting Provider Internal Medicine; Emergency Provider Family Medicine; PCP Family Medicine; Visit Provider Internal Medicine
DX: U07.1 COVID-19 (principal); G93.41 Metabolic encephalopathy; J12.82 Pneumonia due to coronavirus disease 2019; J96.01 Acute respiratory failure with hypoxia; N17.9 Acute kidney failure, unspecified; N39.0 Urinary tract infection, site not specified; J90 Pleural effusion, not elsewhere classified; D63.1 Anemia in chronic kidney disease; E11.65 Type 2 diabetes mellitus with hyperglycemia; E11.51 Type 2 diabetes mellitus with diabetic peripheral angiopathy without gangrene; E11.22 Type 2 diabetes mellitus with diabetic chronic kidney disease; I12.9 Hypertensive chronic kidney disease with stage 1 through stage 4 chronic kidney disease, or unspecified chronic kidney disease; N18.9 Chronic kidney disease, unspecified; Z89.512 Acquired absence of left leg below knee; Z89.511 Acquired absence of right leg below knee; B96.4 Proteus (mirabilis) (morganii) as the cause of diseases classified elsewhere; Z79.891 Long term (current) use of opiate analgesic; E78.5 Hyperlipidemia, unspecified
CPT/HCPCS: 32555; 36415; 36416; 36600; 51702; 71045; 71260; 76770; 80048; 80051; 80053; 80069; 80202; 80503; 81001; 82009; 82042; 82150; 82330; 82570; 82805; 82945; 82962; 83605; 83615; 83735; 83880; 83986; 84145; 84157; 84478; 85014; 85025; 85610; 85730; 86140; 87015; 87040; 87070; 87075; 87077; 87086; 87116; 87186; 87205; 87206; 87635; 87641; 87801; 87804; 88108; 88305; 89050; 92526; 92610; 93005; 93306; 94640; 94660; 94760; 96365; 96367; 96372; 96375; 99285; J0248; J1100; J1644; J1815; J1940; J2185; J3370; J3490; J7050; J7626; Q9967

== ENCOUNTER 2022-07-16 17:00 | Emergency (ER) | payer MEDICARE, MEDICAID, SELFPAY ==
[2022-07-16] VITALS (38 sets, daily range): BP systolic 65–130; BP diastolic 44–68; PULSE 66–176; RESP 9–35; O2SAT 71–100; BMI 21.7
--- NOTE | 2022-07-16 17:04 | W.ED.SOB ---
HPI - SOB/Dyspnea General: Chief Complaint: Shortness of Breath/Dyspnea Stated Complaint: SOB; COVID + Time Seen by Provider: 07/16/22 17:04 Limitations: other (Severe respiratory distress) History of Present Illness: HPI Narrative: Mr. High is an 86-year-old gentleman with, per chart review, COPD, hypertension, diabetes, hyperlipidemia presenting to the emergency department in respiratory distress. History is somewhat limited by acuity of condition. Apparently the patient has a recent history of COVID and was just cleared from a quarantine.. He developed respiratory distress at some point and EMS found patient to be hypoxemic on nasal cannula with only modest improvement on nonrebreather mask. Density symptoms is severe. Course is unclear as is duration. Review of Systems General: Reports: ROS unobtainable due to medical condition (Severe respiratory distress) [facility] ED PFSH: Medical History Acute metabolic encephalopathy Acute respiratory failure with hypoxia CRISTINO (acute kidney injury) Anemia Bilateral pleural effusion Chronic kidney disease Constipation Gangrene of right foot History of hypertension History of type 2 diabetes mellitus Hyperlipidemia Hypertension No pertinent past medical history Partial bowel obstruction Peripheral vascular disease Pneumonia due to COVID-19 virus Postoperative anemia UTI (urinary tract infection) Surgical History History of below knee amputation Left History of right below knee amputation Family History Mother Diabetes Father CAD (coronary artery disease) Social History Smoking and tobacco status: never smoked Alcohol intake: never Physical Exam Const: COMMON NORMALS: alert GENERAL APPEARANCE: cooperative, well developed, in distress and ill appearing HENMT: COMMON NORMALS: normocephalic and atraumatic HEAD & SCALP: normocephalic and atraumatic Eye: COMMON NORMALS: conjunctivae normal CONJUNCTIVA: Yes conjunctivae normal SCLERA: sclerae normal Neck/C-Spine: COMMON NORMALS: supple GENERAL: Yes trachea midline Resp: EFFORT & INSPECTION: Yes tachypneic, Yes respiratory distress, Yes labored, Yes retractions and Yes paradoxical thoraco-abdominal movements AUSCULTATION: rhonchi (Right mid), breath sounds absent on th left (Mid to low) and diminished lung sounds Cardio: COMMON NORMALS: regular rhythm RATE: tachycardic RHYTHM: regular rhythm GI: COMMON NORMALS: Soft to palpation PALPATION: Yes Soft to palpation and No Tenderness to palpation present (GI) Extremity: NARRATIVE EXTREMITY EXAM: Bilateral BKA GENERAL: Yes normal exam except as noted and No edema Neuro: COMMON NORMALS: moves all extremities SENSORIUM/ORIENTATION: Yes alert and Yes Orientation impaired Procedures Chest Tube Chest Tube 1: Chest Tube Prep: Yes betadine prep and sterile drapes applied Local Anesthetic: lidocaine 1% and with epi Amount of anesthesia used (mL): 5 Incision Made With: #10 blade Post Procedure: sterile dressing applied Tube Drainage: fluid Amount of initial drainage (mL): 750 Post Procedure CXR?: Yes Patient Tolerated Procedure: Yes Progress: After obtaining consent from the patient's daughter and patient the patient was placed in upright position. The skin over the left thorax was cleansed and ultrasound confirmed appropriate location for pleural fluid drainage. The skin was again cleansed and anesthetized with 1% lidocaine with epinephrine. A [id number] kit was was used. Skin was incised with a superficial stab incision using an 11 blade and the needle with catheter advanced over the rib space slowly with negative pressure on syringe until return of fluid. At that time the catheter was carefully advanced while holding the safety needle in place. This was done easily without resistance. Approximately 750 cc of light yellow pleural fluid was drained. The catheter was removed and a Vaseline gauze sterile dressing applied. Fluid sent to lab for studies. Patient tolerated procedure well without change in oxygenation or ventilation status. Post procedure x-ray was reviewed. Course Vital Signs: Vital signs: Vital Signs Pulse Rate 68 07/16/22 22:00 Respiratory Rate 18 07/16/22 21:45 Blood Pressure 98/60 07/16/22 22:00 Pulse Oximetry 96 07/16/22 22:00 Oxygen Delivery Me thod 07/16/22 22:00 Fraction of Inspir ed Oxygen 80 07/16/22 22:00 MDM - SOB/Dyspnea Medical Decision Making 86-year-old gentleman with complex history presenting in significant respiratory distress. Patient previously discharged on baseline 3 L and in respiratory distress with hypoxemia into the 80s on 15 L via nonrebreather mask. Exam as above. RT called to bedside for BiPAP. Empiric antibiotic coverage and IV fluids ordered. Initial ABG demonstrates acidemia with hypercapnia and hypoxia. Complex recent history reviewed in chart. Patient was hospitalized with COVID pneumonia. Also found to have ESBL Proteus mirabilis treated with antibiotics. Patient also has bilateral BKAs including one that was somewhat recent. Chest x-ray reviewed with essentially complete opacification of left hemithorax and infiltrate noted on the right. Prior imaging reviewed and congruent with radiology interpretation of likely reaccumulation of fluid. Despite BiPAP patient continued to be tachypneic and borderline oxygen saturation on 100% FiO2. He also developed hypotension at which point I determined that the patient requires emergent thoracentesis. Thoracentesis performed as noted with improvement in respiratory rate and oxygenation as well as breath sounds. also had initial improvement in BP. Post procedure x-ray reviewed with no pneumothorax, patient left hemithorax appears significantly improved. Laboratory studies notable for leukocytosis, near baseline hemoglobin with macrocytosis, normal platelet count. Metabolic panel with mild hyponatremia and hyperkalemia. BUN is elevated with elevated creatinine above baseline. Glucose is markedly elevated however ketones are negative and anion gap is normal. BNP elevated. Initial troponin similar to baseline with negative range delta troponin at 2 hours. Hematuria present without clear evidence of recurrent urinary tract infection, 2+ bacteria present. CT chest obtained for further characterization of findings. There is a large area of consolidated infiltrate in the right lung with component of air bronchograms and mild pleural effusion with atelectasis concerning for pneumonia. Despite adequate fluid resuscitation patient continues to have hypotension at which point I initiated vasopressors. Upon serial reexamination patient appears improved from significant distress on initial presentation though remains quite ill with evidence of severe sepsis likely from pneumonia as well as respiratory failure requiring BiPAP. We do not currently have ICU or stepdown beds available at our facility and therefore we will look for transfer. Addendum: 07/18/22 [id number] I was contacted by Dr. Roe Johnson MD from our pathology department regarding thoracentesis fluid submitted. There are abnormal results. I discussed with RN taking care of the patient at [facility] ICU and faxed the report to their facility. Medical Records I reviewed the patient's medical records. Lab Data I reviewed the patient's lab results. 07/16/22 17:20 07/16/22 17:20 Labs/Radiology: Radiology Impressions Chest CT 07/16/22 17:47 IMPRESSION: 1. Large area consolidated infiltrate is seen in the right lung, particularly mid and upper right lung, with component of air bronchograms, and with associated mild right posterior pleural effusion with atelectasis. Given the relative recent development of consolidation in the right lung, findings likely reflect pneumonia, though requiring follow-up. 2. Small posterior left pleural effusion with an area of consolidation in the left lung base that may reflect an area of consolidative atelectasis or infiltrate or less likely mass, with lung windows demonstrating very small amount of scattered parenchymal infiltrate mid to lower left lung and without pneumothorax post thoracentesis. Again, follow-up suggested. 3. Vascular calcification thoracic aorta and coronary arteries. 4. No significant lymphadenopathy. Chest X-Ray 07/16/22 19:17 IMPRESSION: 1. Marked interval improvement in appearance of the left chest post thoracentesis indicating removal of significant left pleural effusion, without identification of pneumothorax post thoracentesis. Small residual left basilar effusion with atelectasis. 2. Continued areas of opacity or consolidated infiltrate on the right, as previously noted. Laboratory Results WBC 15.6 10^3/uL (4.0-10.0) H 07/16/22 17:20 RBC 3.65 10^6/uL (4.1-5.3) L 07/16/22 17:20 Hgb 10.9 g/dL (11.7-16.6) L 07/16/22 17:20 Hct 34.9 % (42.0-52.0) L 07/16/22 17:20 MCV 95.6 fl (80-94) H 07/16/22 17:20 MCH 29.9 pg (28.0-34.0) 07/16/22 17:20 MCHC 31.2 g/dL (30.0-36.0) 07/16/22 17:20 RDW 15.4 % (12.1-15.1) H 07/16/22 17:20 Plt Count 268 10^3/cmm (130-400) 07/16/22 17:20 MPV 12.0 fL (7.4-10.4) H 07/16/22 17:20 Neut % (Auto) 91.5 % 07/16/22 17:20 Lymph % (Auto) 4.1 % 07/16/22 17:20 Winn % (Auto) 2.7 % 07/16/22 17:20 Eos % (Auto) 0.3 % 07/16/22 17:20 Baso % (Auto) 0.2 % 07/16/22 17:20 Neut # (Auto) 14.30 10^3/uL (1.8-7.7) H 07/16/22 17:20 Lymph # (Auto) 0.6 10^3/uL (0.8-4.8) L 07/16/22 17:20 Winn # (Auto) 0.4 10^3/uL (0.2-0.9) 07/16/22 17:20 Eos # (Auto) 0.1 10^3/uL (0.0-0.8) 07/16/22 17:20 Baso # (Auto) 0.0 10^3/uL (0.0-0.1) 07/16/22 17:20 Nucleated RBC % (auto) 0 % 07/16/22 17: Nucleated RBCs # 0.0 /100WBC 07/16/22 17:20 Specimen Type Arterial 07/16/22 18:34 Sample Site Radial, right 07/16/22 18:34 ABG pH 7.34 (7.35-7.45) L 07/16/22 18:34 ABG pCO2 46.9 mmHg (35-45) H 07/16/22 18:34 ABG pO2 94.4 mmHg (80.0-100.0) 07/16/22 18:34 ABG HCO3 25.5 mmol/L (22-26) 07/16/22 18:34 ABG O2 Saturation 95.3 07/16/22 17:12 ABG Base Excess -0.4 mmol/L (-2.0-2.0) 07/16/22 18:34 Ned Test Pos 07/16/22 18:34 A-a O2 Gradient 73.6 mmHg (5-10) H 07/16/22 17:12 Hematocrit 30.4 % (42-52) L 07/16/22 18:34 Hgb O2 Saturation 93.4 % (95-100) L 07/16/22 17:12 Carboxyhemoglobin 1.3 %THgb (0.4-20.1) 07/16/22 17:12 Methemoglobin 0.7 % (0.4-1.5) 07/16/22 17:12 Total Hemoglobin 11.1 g/dL (14-18) L 07/16/22 17:12 Sodium 136.0 mmol/L (131-143) 07/16/22 17:12 Potassium 4.9 mmol/L (3.5-5.0) 07/16/22 17:12 Glucose 618.0 mg/dL (70-115) H 07/16/22 17:12 Ionized Calcium 1.2 mmol/L (1.1-1.4) 07/16/22 17:12 O2 Delivery Device Bipap 07/16/22 18:34 FiO2 100.0 % 07/16/22 17:12 Registered Nurse Midwife ID [place] 07/16/22 18:34 Sodium 135 mmol/L (136-145) L 07/16/22 17:20 Potassium 5.4 mmol/L (3.5-5.1) H 07/16/22 17:20 Chloride 99 mmol/L (98-107) 07/16/22 17:20 Carbon Dioxide 25 mmol/L (22-29) 07/16/22 17:20 Anion Gap 16.4 (5-19) 07/16/22 17:20 BUN 60 mg/dL (8-23) H 07/16/22 17:20 Creatinine 1.9 mg/dL (0.7-1.2) H 07/16/22 17:20 GFR Calculation Not Reportable 07/16/22 17:20 Glucose 581 mg/dL (65-115) H* 07/16/22 17:20 POC Glucose 523 mg/dL (70-110) H* 07/16/22 20:27 Calculated Osmolality 324 mOsm/kg (285-295) H 07/16/22 17:20 Lactic Acid 1.4 mmol/L (0.5-2.2) 07/16/22 17:20 Calcium 8.6 mg/dL (8.5-10.5) 07/16/22 17:20 Total Bilirubin 0.5 mg/dL (0.15-1.2) 07/16/22 17:20 AST 10 U/L (0-40) 07/16/22 17:20 ALT 9 U/L (0-41) 07/16/22 17:20 Alkaline Phosphatase 77 U/L (40-130) 07/16/22 17:20 Troponin T Baseline 92 ng/L (0-15) H 07/16/22 17:20 Troponin T 120 Minute 77.62 ng/L (0-15) H 07/16/22 19:20 Delta Troponin T -14.38 ABS# (0-10) L 07/16/22 19:20 C-Reactive Protein 53.9 mg/L (0.0-4.9) H 07/16/22 17:20 NT-Pro-B Natriuret Pep 5535 pg/mL (0-450) H 07/16/22 17:20 Total Protein 5.6 g/dL (6.6-8.7) L 07/16/22 17:20 Albumin 2.8 g/dL (3.5-5.2) L 07/16/22 17:20 Globulin 2.8 g/dL (1.3-4.6) 07/16/22 17:20 Procalcitonin 0.22 ng/mL (0-0.5) 07/16/22 17:20 Urine Color Dark yellow (Yellow) 07/16/22 17:20 Urine Appearance Sl hazy (CLEAR) A 07/16/22 17:20 Urine pH 5 (5-7) 07/16/22 17:20 Ur Specific [place] 1.020 (1.005-1.030) 07/16/22 17:20 Urine Protein 2+ (Negative) H 07/16/22 17:20 Urine Glucose (UA) 4+ (Normal) H 07/16/22 17:20 Urine Ketones Negative (Negative) 07/16/22 17:20 Urine Blood 3+ (Negative) H 07/16/22 17:20 Urine Nitrate Negative (Negative) 07/16/22 17:20 Urine Bilirubin Neg (Negative) 07/16/22 17:20 Urine Urobilinogen Norm mg/dL (Negative) 07/16/22 17:20 Ur Leukocyte Esterase Negative (Negative) 07/16/22 17:20 Urine RBC 15-25 /hpf (0-2) H 07/16/22 17:20 Urine WBC 0-4 /hpf (0-5) H 07/16/22 17:20 Ur Squamous Epith Cells 5-10 /hpf (0-5) H 07/16/22 17:20 Amorphous Sediment 1+ /hpf 07/16/22 17:20 Urine Bacteria 2+ /hpf (NONE) H 07/16/22 17:20 Coarse Granular Casts 0-4 /lpf H 07/16/22 17:20 Fluid Color Pale yellow 07/16/22 19:10 Fluid Appearance Clear 07/16/22 19:10 Fluid WBC 342 /uL 07/16/22 19:10 Fluid RBC 0 10^3/uL 07/16/22 19:10 Fluid Hematocrit 0.0 % 07/16/22 19:10 Fld Polynuclear WBCs # 0.011 07/16/22 19:10 Fld Polynuclear WBCs % 3.200 % 07/16/22 19:10 Fl Mononucl WBCs #(Auto) 0.331 07/16/22 19:10 Fl Mononuclear % Auto 96.800 % 07/16/22 19:10 Fluid Albumin 1.2 g/dL 07/16/22 19:10 Fluid Creatinine 1.94 (0.7-1.2) H 07/16/22 19:10 Pleural pH 9.00 (6.5-7.5) H 07/16/22 19:10 Pleural Total Protein 2.0 g/dL 07/16/22 19:10 Pleural LDH 66 U/L 07/16/22 19:10 Pleural Glucose 602.0 mg/dL 07/16/22 19:10 Pleural Amylase 6.0 U/L 07/16/22 19:10 Pleural Triglycerides 20 mg/dL 07/16/22 19:10 Serum Ketones Negative (Negative) 07/16/22 17:20 Critical Care Time Critical Care Time: Critical Care Time: Yes Total Critical Care Time: 110 Attestation: Due to a high probability of clinically significant, possibly life threatening deterioration, the patient required my highest level of attention and preparedness to intervene emergently and I personally spent this critical care time directly and personally managing the patient. This critical care time included obtaining a history; examining the patient; pulse oximetry; ordering and review of laboratory and imaging studies; arranging urgent treatment with development of a management plan; evaluation of patient's response to treatment; frequent reassessment; and, discussions with other providers as applicable. It was exclusive of separately billable procedures. Primary systems involved are cardiopulmonary and infectious disease Discharge Plan Discharge Patient Disposition: Xfer Short-Term Hosp Clinical Impression: Acute on chronic respiratory failure with hypoxia and hypercapnia, Pneumonia, Severe sepsis, Pleural effusion, Acute hyperkalemia, CRISTINO (acute kidney injury), Acute hyperglycemia, Elevated brain natriuretic peptide (BNP) level Condition: Critical Referrals: Becky Moon DO [Primary Care Provider] - Coding Level of Care Code ED Medical Records Analyst for Chg Fwd Exam Comprehensive
--- NOTE | 2022-07-16 17:07 | ECG_ITS ---
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 Measurements Intervals [place] Rate: 71 P: 0 SC: 0 QRS: 21 QRSD: 101 T: 101 QT: 406 QTc: 444 Interpretive Statements SUPRAVENTRICULAR RHYTHM INFERIOR MYOCARDIAL INFARCTION , OF INDETERMINATE AGE [40+ ms Q WAVE AND/OR ST/T ABNORMALITY IN II/aVF] Compared to ECG 07/05/2022 08:41:33 Supraventricular rhythm now present Myocardial infarct finding now present Sinus rhythm no longer present First degree AV block no longer present Electronically Signed On 07-18-2022 7:44:28 [employer]PERVISOR [employer] by Edwin Lawrence M.D. [id number]
--- NOTE | 2022-07-16 17:10 | XRR_ITS ---
PROCEDURE INFORMATION: Exam: XR Chest Exam date and time: 07/16/2022 5:15 PM Age: 86 years old Clinical indication: Shortness of breath; Additional info: Resp distress TECHNIQUE: Imaging protocol: Radiologic exam of the chest. Views: 1 view. COMPARISON: CR XR chest 1V portable [id number] 07/07/2022 6:33 AM FINDINGS: Airway: Trachea remains midline. Lungs: Compared with July 07, 2022 exam, there is now almost complete opacification of the left hemothorax suggesting recurrence of large left pleural effusion and/or underlying atelectasis/infiltrate. Interval development of an area irregular consolidated infiltrate is seen in the right perihilar upper lobe from previous exam. Given the recent acute interval change, findings favor pneumonia, requiring follow-up. A component of medial right infrahilar opacity or infiltrate also suggested. Pleural spaces: See Lungs finding. Heart/Mediastinum: Unable to evaluate cardiac size as left cardiac silhouette is not seen. Bones/joints: Unremarkable. Other findings: No significant effusion on the right. XR/XR chest 1V portable [id number] IMPRESSION: Interval worsening in the appearance of the chest from July 07, 2022 exam, with nearly complete opacification of the left hemithorax suggestive of recurrent large effusion with or without underlying atelectasis/ infiltrate, as well as interval development irregular opacity or consolidated infiltrate in the right perihilar upper lobe and medial right infrahilar region. Given the relative acute recent change on the right, findings favoring pneumonia on the right, though requiring follow-up.
[2022-07-16 17:22] LABS: Glucose Point of Care 531 mg/dL (70-110)
[2022-07-16 17:23] LABS: ABG PCO2 53.3 mmHg (35-45); ABG PH Result 7.31 (7.35-7.45); Alveolar-Arterial Oxygen Gradi 73.6 mmHg (5-10); Base Excess ABG -0.1 mmol/L (-2.0-2.0); Blood Gas Allen Test Pos; Blood Gas Operator Identificat WALCI; Blood Gas Sample Site Radial, right; Blood Gas Sample Type Arterial; Carboxyhemoglobin 1.3 %THgb (0.4-20.1); HCO3 ABG 26.8 mmol/L (22-26); HGB O2 Sat 93.4 % (95-100); Ionized Calcium Level - ABG 1.2 mmol/L (1.1-1.4); Methemoglobin 0.7 % (0.4-1.5); Oxygen Device NRB; Oxygen Saturation ABG 95.3; PO2 ABG 79.3 mmHg (80.0-100.0); Potassium Level - ABG 4.9 mmol/L (3.5-5.0); Total Hemoglobin 11.1 g/dL (14-18)
[2022-07-16 17:35] LABS: Basophils % 0.2 %; Eosinophils # 0.1 10^3/uL (0.0-0.8); Eosinophils % 0.3 %; Hematocrit 34.9 % (42.0-52.0); Hemoglobin 10.9 g/dL (11.7-16.6); Lymphocytes # 0.6 10^3/uL (0.8-4.8); Lymphocytes % 4.1 %; Mean Corpuscular HGB Conc 31.2 g/dL (30.0-36.0); Mean Corpuscular Hemoglobin 29.9 pg (28.0-34.0); Mean Corpuscular Volume 95.6 fl (80-94); Monocytes # 0.4 10^3/uL (0.2-0.9); Monocytes % 2.7 %; Neutrophils % 91.5 %; Nucleated Red Blood Cells % 0 %; Platelet Count 268 10^3/cmm (130-400); Red Blood Count 3.65 10^6/uL (4.1-5.3); Red Cell Distribution Width 15.4 % (12.1-15.1); White Blood Count 15.6 10^3/uL (4.0-10.0)
[2022-07-16] MEDS: ipratropium-albuterol 3 mL Neb INHALATION (17:37)
[2022-07-16 17:42] LABS: Ketone (Acetest) Serum Negative (Negative)
[2022-07-16 17:43] LABS: Glucose Urine UA 4+ (Normal); Ketones Urine Negative (Negative); Protein Urine 2+ (Negative); Urine Appearance SL Hazy (CLEAR); Urine Color Dark Yellow (Yellow); pH Urine 5 (5-7)
[2022-07-16 17:44] LABS: Add Urine Microscopic? YES; Bacteria Urine 2+ /hpf; Bilirubin Urine Neg (Negative); Blood Urine 3+ (Negative); Leukocyte Esterase Urine Negative (Negative); Nitrate Urine Negative (Negative); RBC Urine 15-25 /hpf (0-2); Urobilinogen Urine Norm (Negative); WBC Urine 0-4 /hpf (0-5)
[2022-07-16 17:45] LABS: Add Urine Culture? Yes; Amorphous Sediment Urine 1+ /hpf; Coarse Granular Casts Urine 0-4 /lpf
--- NOTE | 2022-07-16 17:47 | CTR_ITS ---
PROCEDURE INFORMATION: Exam: CT Chest Without Contrast; Diagnostic Exam date and time: 07/16/2022 7:54 PM Age: 86 years old Clinical indication: Other: Resp distress; Additional info: Resp distress, gfr 31 creat 1.9 ckd TECHNIQUE: Imaging protocol: Diagnostic computed tomography of the chest without contrast. Radiation optimization: All CT scans at this facility use at least one of these dose optimization techniques: automated exposure control; mA and/or kV adjustment per patient size (includes targeted exams where dose is matched to clinical indication); or iterative reconstruction. COMPARISON: CT chest w con* [id number] 07/05/2022 10:28 AM RADIATION DOSE METRICS: Total DLP (mGy-cm): 640.9 FINDINGS: Lungs: Lung windows demonstrate large area of irregular opacity or consolidated infiltrate with component of air bronchograms involving mid to upper right lung, with partial nodular appearance. There is an associated mild right posterior pleural effusion. Small posterior left pleural effusion is seen with an area consolidation in the left lung base that may reflect an area of consolidated atelectasis or infiltrate. A mass can give a similar appearance. Lung windows suggest a small amount of scattered parenchymal infiltrate mid to lower left lung. Pleural spaces: See Lungs finding. Heart: See Coronary arteries finding. Coronary arteries: Coronary artery calcification. Mild cardiac enlargement. No pericardial effusion. Lymph nodes: Unremarkable. No enlarged lymph nodes. Vasculature: Arteriosclerosis of the thoracic aorta. Bones/joints: Degenerative change thoracic spine. Soft tissues: Unremarkable. CT/CT chest wo con [id number] IMPRESSION: 1. Large area consolidated infiltrate is seen in the right lung, particularly mid and upper right lung, with component of air bronchograms, and with associated mild right posterior pleural effusion with atelectasis. Given the relative recent development of consolidation in the right lung, findings likely reflect pneumonia, though requiring follow-up. 2. Small posterior left pleural effusion with an area of consolidation in the left lung base that may reflect an area of consolidative atelectasis or infiltrate or less likely mass, with lung windows demonstrating very small amount of scattered parenchymal infiltrate mid to lower left lung and without pneumothorax post thoracentesis. Again, follow-up suggested. 3. Vascular calcification thoracic aorta and coronary arteries. 4. No significant lymphadenopathy.
[2022-07-16] MEDS: ondansetron 2 mg/ML SDV 2 mL 4 MG IVP (18:03)
[2022-07-16] MEDS: morphine 4 mg/mL SDV 1 mL 2 MG IVP (18:03)
[2022-07-16] MEDS: meropenem 1,000 MG in sodium chloride 0.9% (plus) 50 ML 100 MG IV (18:04)
[2022-07-16 18:05] LABS: Lactic Sepsis W/Reflex 1.4 mmol/L (0.5-2.2)
[2022-07-16 18:06] LABS: Troponin(5th) Baseline 92 ng/L (0-15)
[2022-07-16 18:13] LABS: NT Pro B Type Natriuretic Pept 5535 pg/mL (0-450); Procalcitonin 0.22 ng/mL (0-0.5)
[2022-07-16 18:24] LABS: Alanine Aminotransferase 9 U/L (0-41); Albumin Level 2.8 g/dL (3.5-5.2); Alkaline Phosphatase 77 U/L (40-130); Blood Urea Nitrogen 60 mg/dL (8-23); C Reactive Protein 53.9 mg/L (0.0-4.9); Calcium 8.6 mg/dL (8.5-10.5); Carbon Dioxide 25 mmol/L (22-29); Chloride 99 mmol/L (98-107); Globulin 2.8 g/dL (1.3-4.6); Osmolality Calculated 324 mOsm/kg (285-295); Sodium 135 mmol/L (136-145); Total Bilirubin 0.5 mg/dL (0.15-1.2); Total Protein 5.6 g/dL (6.6-8.7)
[2022-07-16 18:31] LABS: Anion Gap 16.4 (5-19); Aspartate Amino Transferase 10 U/L (0-40); Creatinine Clr Calc Pharmacy 24.7792; Potassium 5.4 mmol/L (3.5-5.1)
[2022-07-16 18:33] LABS: Glucose 581 mg/dL (65-115)
[2022-07-16] MEDS: sodium chloride 0.9% 1,000 ML 999 ML IV ×2 (18:37→20:06)
[2022-07-16 18:45] LABS: ABG PCO2 46.9 mmHg (35-45); ABG PH Result 7.34 (7.35-7.45); Arterial Blood Gas Hematocrit 30.4 % (42-52); Base Excess ABG -0.4 mmol/L (-2.0-2.0); Blood Gas Allen Test Pos; Blood Gas Operator Identificat WALCI; Blood Gas Sample Site Radial, right; Blood Gas Sample Type Arterial; HCO3 ABG 25.5 mmol/L (22-26); Oxygen Device BIPAP; PO2 ABG 94.4 mmHg (80.0-100.0)
--- NOTE | 2022-07-16 19:15 | PC.NURSE ---
REPORT GIVEN TO ALONZO Mcgowan RN.
[2022-07-16] MEDS: insulin regular-human 100 units/1 mL 10 UNIT IVP (19:17)
--- NOTE | 2022-07-16 19:17 | XRR_ITS ---
PROCEDURE INFORMATION: Exam: XR Chest Exam date and time: 07/16/2022 7:22 PM Age: 86 years old Clinical indication: Shortness of breath; Additional info: Post thora TECHNIQUE: Imaging protocol: Radiologic exam of the chest. Views: 1 view. COMPARISON: CR (CHEST, ) 07/16/2022 5:15 PM FINDINGS: Lungs: Marked interval improvement in appearance of the left hemothorax or left lung noted from earlier exam, with nearly complete resolution of opacity of the left hemithorax with suggestion of small residual left basilar effusion. Mild amount of atelectasis left lung base. No focal infiltrate or consolidation of the left lung. There remains an area of focal mildly irregular opacity or consolidation in the right perihilar upper lobe, as well as component of opacity or infiltrate within the medial right infrahilar region. Pleural spaces: Comparison with the exam earlier same date, current exam is labeled post thoracentesis. No pneumothorax is seen post thoracentesis. Heart/Mediastinum: Cardiac silhouette is upper limits of normal. Bones/joints: Unremarkable. XR/XR chest 1V portable [id number] IMPRESSION: 1. Marked interval improvement in appearance of the left chest post thoracentesis indicating removal of significant left pleural effusion, without identification of pneumothorax post thoracentesis. Small residual left basilar effusion with atelectasis. 2. Continued areas of opacity or consolidated infiltrate on the right, as previously noted.
[2022-07-16 19:41] LABS: Body Fluid Polynuclear #Cells 0.011; Body Fluid WBC 342 /uL; Monocytes # Body Fluid 0.331; RBC, Body Fluid 0 10^3/uL
--- NOTE | 2022-07-16 19:41 | ECG_ITS ---
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 Measurements Intervals [place] Rate: 70 P: 26 OK: 231 QRS: 40 QRSD: 93 T: 13 QT: 463 QTc: 501 Interpretive Statements SINUS RHYTHM WITH FIRST DEGREE AV BLOCK MINIMAL ST DEPRESSION [0.025+ mV ST DEPRESSION] PROLONGED QT INTERVAL Compared to ECG 07/16/2022 17:07:58 First degree AV block now present ST (T wave) deviation now present Prolonged QT interval now present Supraventricular rhythm no longer present Myocardial infarct finding no longer present Electronically Signed On 07-18-2022 7:50:08 [employer] OFFICER by Edwin Lawrence M.D. [id number]
[2022-07-16 19:48] LABS: Apprearance, Body Fluid CLEAR; Color, Body Fluid PALE YELLOW
[2022-07-16 20:12] LABS: Troponin 5 2HR 77.62 ng/L (0-15)
[2022-07-16 20:36] LABS: Albumin Body Fluid 1.2 g/dL; Creatinine Body Fluid 1.94 (0.7-1.2)
[2022-07-16 20:37] LABS: LDH Pleural Fluid 66 U/L; Triglycerides, Pleural Fluid 20 mg/dL
--- NOTE | 2022-07-16 22:18 | PC.NURSE ---
[facility] EMS arrived and report given to Buddy Manager Icu
[2022-07-17 17:08] LABS: Glucose Point of Care 523 mg/dL (70-110)
== END 2022-07-16 22:30 | disposition short-term general hospital (02) ==
PROVIDERS: Emergency Provider Emergency Medicine; PCP Family Medicine
DX: A41.9 Sepsis, unspecified organism (principal); R65.20 Severe sepsis without septic shock; J96.02 Acute respiratory failure with hypercapnia; J96.01 Acute respiratory failure with hypoxia; J18.9 Pneumonia, unspecified organism; J90 Pleural effusion, not elsewhere classified; E87.5 Hyperkalemia; N17.9 Acute kidney failure, unspecified; E11.65 Type 2 diabetes mellitus with hyperglycemia; R79.89 Other specified abnormal findings of blood chemistry; E11.22 Type 2 diabetes mellitus with diabetic chronic kidney disease; I12.9 Hypertensive chronic kidney disease with stage 1 through stage 4 chronic kidney disease, or unspecified chronic kidney disease; N18.9 Chronic kidney disease, unspecified; E78.5 Hyperlipidemia, unspecified; Z89.512 Acquired absence of left leg below knee; Z89.511 Acquired absence of right leg below knee
CPT/HCPCS: 36415; 36416; 36600; 71045; 71250; 80051; 80053; 80503; 81001; 82009; 82042; 82150; 82330; 82570; 82803; 82805; 82945; 82962; 83605; 83615; 83880; 83986; 84145; 84157; 84478; 84484; 85014; 85025; 86140; 87015; 87040; 87070; 87075; 87086; 87116; 87205; 87206; 87801; 89050; 93005; 94640; 94660; 99285; J1815; J2185; J2270; J2405; J2930; J3370; J7030; J7040; J7060

== ENCOUNTER → 2022-08-02 10:00 | Outpatient (BNVA) | payer MEDICARE, MEDICAID, SELFPAY | PROVIDERS: PCP Family Medicine; Visit Provider Orthopaedic Surgery | DX: Z89.511 Acquired absence of right leg below knee (principal) | CPT/HCPCS: 99024 ==

== ENCOUNTER 2022-08-19 18:15 | Inpatient (IN) | payer MEDICARE, MEDICAID, SELFPAY ==
[2022-08-19] VITALS (26 sets, daily range): BP systolic 105–138; BP diastolic 48–63; PULSE 70–78; RESP 14–18; TEMP 36.6; O2SAT 92–100
--- NOTE | 2022-08-19 18:42 | XRR_ITS ---
PROCEDURE INFORMATION: Exam: XR Chest Exam date and time: 08/19/2022 8:06 PM Age: 87 years old Clinical indication: Other: AMS TECHNIQUE: Imaging protocol: Radiologic exam of the chest. Views: 1 view. COMPARISON: CT chest con [id number] 07/16/2022 7:54 PM FINDINGS: Lungs: Resolution of airspace disease in the right upper lobe with residual linear scarring. Interval development of a large left pleural effusion with complete collapse of the left lung and whiteout of the left hemithorax. Pleural spaces: No pneumothorax. See also under lungs . Heart/Mediastinum: The left cardiac silhouette border is obscured, size of the cardiac silhouette cannot be determined. Vasculature: Stable vascular calcifications in the aorta. Bones/joints: Unremarkable for age. XR/XR chest 1V portable [id number] IMPRESSION: 1. Interval development of a large left pleural effusion with complete collapse of the left lung and whiteout of the left hemithorax. Recommend followup chest imaging to insure resolution of these findings. 2. Resolution of airspace disease in the right upper lobe with residual linear scarring.
--- NOTE | 2022-08-19 18:46 | W.ED.AMS ---
HPI - Altered Mental Status General: Chief Complaint: Altered Mental Status Stated Complaint: AMS Time Seen by Provider: 08/19/22 18:17 History of Present Illness: 87-year-old male retirement patient who was found essentially not responsive by the retirement staff this evening. His last known normal was sometime between 7 and 8 AM at breakfast. A family member is with him now, and notes that she saw him this afternoon, and had been home for about 45 minutes before the retirement called to say they were sending him here. However, he had slept almost all the time she was there with him this afternoon. His blood sugar was found to be 45. IV was established and D10 fluids were ran on the way here. Currently blood sugars have improved, and the patient is awake, alert, and talking. He does not remember events of today. He did not remember eating breakfast. He denies any increased pain. He denies any fever. He has a chronic indwelling Valdovinos catheter. MD complaint: altered mental status and decreased responsiveness Onset (ago): unknown Timing confirmed by: caregiver Severity: moderate Consistency of symptoms: Unknown Context: diabetes Associated symptoms: Reports other Treatments prior to arrival: glucose Review of Systems Const: Denies: fever(s) or chills Eyes: Denies: change in vision Card: Denies: chest pain Resp: Denies: dyspnea, productive cough or non-productive cough GI: Reports: diarrhea; Denies: abdominal pain or vomiting Neuro: Denies: headache(s) [facility] ED PFSH: Medical History (Updated 08/20/22 @ 02:26 by Chinmay Sanchez DO) Acute metabolic encephalopathy Acute respiratory failure with hypoxia CRISTINO (acute kidney injury) Anemia Bilateral pleural effusion Chronic kidney disease Constipation Gangrene of right foot History of hypertension History of type 2 diabetes mellitus Hyperlipidemia Hypertension No pertinent past medical history Partial bowel obstruction Peripheral vascular disease Pneumonia due to COVID-19 virus Postoperative anemia UTI (urinary tract infection) Surgical History History of below knee amputation Left History of right below knee amputation Family History Mother Diabetes Father CAD (coronary artery disease) Social History Smoking and tobacco status: never smoked Alcohol intake: never Physical Exam Const: COMMON NORMALS: no acute distress GENERAL APPEARANCE: frail appearing; not ill appearing HENMT: COMMON NORMALS: normocephalic, atraumatic and Normal external nose present HEAD & SCALP: normocephalic and atraumatic FACE & SINUS: face symmetric NOSE: Normal external nose present Eye: COMMON NORMALS: Equal, round and reactive pupils present and EOMs intact bilaterally PUPIL: Yes Equal, round and reactive pupils present Neck/C-Spine: GENERAL: Yes trachea midline Chest: CHEST: Yes Symmetrical chest wall rise Resp: COMMON NORMALS: normal respiratory effort, No use of accessory muscles and clear to auscultation bilaterally AUSCULTATION: clear to auscultation bilaterally Cardio: COMMON NORMALS: regular rate and regular rhythm RATE: regular rate RHYTHM: regular rhythm GI: COMMON NORMALS: Normal to inspection, nondistended, normoactive bowel sounds present and Soft to palpation PALPATION: Yes Soft to palpation and Yes Tenderness to palpation present (GI) (Mild diffuse) Extremity: NARRATIVE EXTREMITY EXAM: Bilateral amputations to the lower extremities. The right was done in May, and there is some eschar over the scar. It is noncellulitic. Neuro: TAMIKO COMA SCALE: document GCS findings Avenel coma scale eye opening: Spontaneous Avenel coma scale verbal response: Confused Avenel coma scale motor response: Obey commands Tamiko coma scale total score: 14 Psych: COMMON NORMALS: cooperative Course Vital Signs: Vital signs: Vital Signs Temperature 97.8 F 08/19/22 18:16 Pulse Rate 70 08/19/22 19:19 Respiratory Rate 18 08/19/22 19:19 Blood Pressure 134/60 08/20/22 01:15 Pulse Oximetry 98 08/20/22 01:15 Oxygen Delivery Me thod 08/19/22 19:19 Oxygen Flow Rate 6 08/19/22 19:19 MDM - Altered Mental Status Medical Decision Making 87-year-old patient that was unresponsive in the retirement not responsive after being given D10 in route to the hospital for hypoglycemia. Instructed reason for hypoglycemia, white blood cell count was found to be elevated. His hemoglobin is stable at 10.6. His creatinine is 1.6. He has a significant urinary tract infection by cath urinalysis. He also has a jill out lung on the left side on chest x-ray. CT is completed showing development of mucous plugging in the left mainstem bronchus as well as a large left pleural effusion. Despite this, patient's oxygen saturations remain above 95% on 5 L nasal cannula oxygen. He is not overly short of breath. I spoke with our hospitalist. He is willing to admit the patient for treatment of urinary tract infection as well as potential treatment of pleural effusion. He will go to the ICU given his x-ray and CT findings. Lab Data 08/19/22 18:29 08/19/22 18:29 Radiology Impressions Chest X-Ray 08/19/22 18:42 IMPRESSION: 1. Interval development of a large left pleural effusion with complete collapse of the left lung and whiteout of the left hemithorax. Recommend followup chest imaging to insure resolution of these findings. 2. Resolution of airspace disease in the right upper lobe with residual linear scarring. Chest CT 08/19/22 21:32 IMPRESSION: 1. Interval development of mucous plugging in the left mainstem bronchus extending into virtually all branches of the left upper, lingular, and lower lobe bronchi. Significant increase in size of a large left pleural effusion with compressive atelectasis of the left lung, underlying pneumonia cannot be ruled out. There is improving aeration in the right upper lobe and right middle lobe suggesting resolving atelectasis/pneumonia however. Recommend followup chest imaging to insure resolution of these findings. 2. Stable moderate right pleural effusion. 3. 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 It is uncertain whether this connects to the main pancreatic duct. Reimaging every 2 years for 4 years is recommended. (Reference: Gera, 2017) 4. Mild body wall edema. 5. Incidental/nonacute findings are listed in the report. REFERENCES: Gera CROSS, et al. Management of Incidental Pancreatic Cysts: A White Paper of the ACR Incidental Findings Committee. J Am Romero Radiol. 2017;14(7):911-923. Laboratory Results WBC 13.0 10^3/uL (4.0-10.0) H 08/19/22 18:29 RBC 3.67 10^6/uL (4.1-5.3) L 08/19/22 18:29 Hgb 10.6 g/dL (11.7-16.6) L 08/19/22 18: Hct 34.4 % (42.0-52.0) L 08/19/22 18: MCV 93.7 fl (80-94) 08/19/22 18: MCH 28.9 pg (28.0-34.0) 08/19/22 18: MCHC 30.8 g/dL (30.0-36.0) 08/19/22: RDW 15.9 % (12.1-15.1) H 08/19/22: Plt Count 540 10^3/cmm (130-400) H 08/19/22 18: MPV 10.5 fL (7.4-10.4) H 08/19/22 18: Neut % (Auto) 92.0 % 08/19/22 18: Lymph % (Auto) 3.6 % 08/19/22: [place] % (Auto) 3.2 % 08/19/22: Eos % (Auto) 0.1 % 08/19/22 18: Baso % (Auto) 0.3 % 08/19/22 18: Neut # (Auto) 11.98 10^3/uL (1.8-7.7) H 08/19/22: Lymph # (Auto) 0.5 10^3/uL (0.8-4.8) L 08/19/22 18: [place] # (Auto) 0.4 10^3/uL (0.2-0.9) 08/19/22: Eos # (Auto) 0.0 10^3/uL (0.0-0.8) 08/19/22 18: Baso # (Auto) 0.0 10^3/uL (0.0-0.1) 08/19/22: Nucleated RBC % (auto) 0 % 08/19/22: Nucleated RBCs # 0.0 /100WBC 08/19/22 18: Sodium 139 mmol/L (136-145) 08/19/22 18: Potassium 4.0 mmol/L (3.5-5.1) 08/19/22: Chloride 104 mmol/L (98-107) 08/19/22 18: Carbon Dioxide 23 mmol/L (22-29) 08/19/22 18: Anion Gap 16.0 (5-19) 08/19/22 18: BUN 35 mg/dL (8-23) H 08/19/22 18: Creatinine 1.6 mg/dL (0.7-1.2) H 08/19/22 18: GFR Calculation Not Reportable 08/19/22 18: Glucose 28 mg/dL (65-115) L* 08/19/22 18: POC Glucose 114 mg/dL (70-110) H 08/19/22 20:05 Calculated Osmolality 292 mOsm/kg (285-295) 08/19/22 18: Lactate 1.0 mmol/L (0.5-2.2) 08/19/22 19:40 Calcium 8.7 mg/dL (8.5-10.5) 08/19/22 18: Total Bilirubin 0.4 mg/dL (0.15-1.2) 08/19/22 18: AST 15 U/L (0-40) 08/19/22 18: ALT < 5 U/L (0-41) 08/19/22 18: Alkaline Phosphatase 117 U/L (40-130) 08/19/22 18: C-Reactive Protein 22.2 mg/L (0.0-4.9) H 08/19/22 18: Total Protein 6.4 g/dL (6.6-8.7) L 08/19/22 18: Albumin 2.8 g/dL (3.5-5.2) L 08/19/22 18: Globulin 3.6 g/dL (1.3-4.6) 08/19/22 18: Urine Color Yellow (Yellow) 08/19/22 18: Urine Appearance Hazy (CLEAR) A 08/19/22 18: Urine pH 6 (5-7) 08/19/22 18: Ur Specific [place] 1.020 (1.005-1.030) 08/19/22 18: Urine Protein 1+ (Negative) H 08/19/22 18:30 Urine Glucose (UA) Norm (Normal) 08/19/22 18: Urine Ketones Negative (Negative) 08/19/22 18:30 Urine Blood 2+ (Negative) H 08/19/22 18:30 Urine Nitrate Positive (Negative) H 08/19/22 18:30 Urine Bilirubin Neg (Negative) 08/19/22 18:30 Urine Urobilinogen Neg mg/dL (Negative) 08/19/22 18:30 Ur Leukocyte Esterase 2+ (Negative) H 08/19/22 18:30 Urine RBC >100 /hpf (0-2) H 08/19/22 18:30 Urine WBC Too numerous to cnt /hpf (0-5) H 08/19/22 18:30 Ur Squamous Epith Cells 0-4 /hpf (0-5) H 08/19/22 18:30 Amorphous Sediment 2+ /hpf 08/19/22 18:30 Urine Bacteria 4+ /hpf (NONE) H 08/19/22 18:30 Urine Mucus 1+ /hpf 08/19/22 18:30 Discharge Plan Discharge Patient Disposition: Admitted As Inpatient Admit Provider: Alexx Sebastian Clinical Impression: Bilateral pleural effusion, Atelectasis of left lung, Acute respiratory failure with hypoxia Condition: Fair Coding Level of Care Code ED Track Service Worker for Keisha Platt
[2022-08-19 18:51] LABS: Glucose Point of Care 124 mg/dL (70-110)
[2022-08-19 18:54] LABS: Basophils % 0.3 %; Eosinophils % 0.1 %; Hematocrit 34.4 % (42.0-52.0); Hemoglobin 10.6 g/dL (11.7-16.6); Lymphocytes # 0.5 10^3/uL (0.8-4.8); Lymphocytes % 3.6 %; Mean Corpuscular HGB Conc 30.8 g/dL (30.0-36.0); Mean Corpuscular Hemoglobin 28.9 pg (28.0-34.0); Mean Corpuscular Volume 93.7 fl (80-94); Mean Platelet Volume 10.5 fL (7.4-10.4); Monocytes # 0.4 10^3/uL (0.2-0.9); Monocytes % 3.2 %; Neutrophils # 11.98 10^3/uL (1.8-7.7); Nucleated Red Blood Cells % 0 %; Platelet Count 540 10^3/cmm (130-400); Red Blood Count 3.67 10^6/uL (4.1-5.3); Red Cell Distribution Width 15.9 % (12.1-15.1)
[2022-08-19 19:05] LABS: Alanine Aminotransferase < 5 U/L (0-41); Albumin Level 2.8 g/dL (3.5-5.2); Alkaline Phosphatase 117 U/L (40-130); Aspartate Amino Transferase 15 U/L (0-40); Blood Urea Nitrogen 35 mg/dL (8-23); C Reactive Protein 22.2 mg/L (0.0-4.9); Calcium 8.7 mg/dL (8.5-10.5); Carbon Dioxide 23 mmol/L (22-29); Chloride 104 mmol/L (98-107); Globulin 3.6 g/dL (1.3-4.6); Osmolality Calculated 292 mOsm/kg (285-295); Sodium 139 mmol/L (136-145); Total Bilirubin 0.4 mg/dL (0.15-1.2); Total Protein 6.4 g/dL (6.6-8.7)
--- NOTE | 2022-08-19 19:08 | PC.NURSE ---
report given to IRIS Ku to assume care
[2022-08-19 19:14] LABS: Glucose 28 mg/dL (65-115)
--- NOTE | 2022-08-19 19:18 | PC.NURSE ---
SHIFT CHANGE report rec'd from Leelee Del Castillo RN. Pt asleep in bed, responds to nurse when spoke to. Pt is A&Ox3 and VSS. Daughter at bedside. IV is patent, IVFluids started. 6L oxygen NC.
[2022-08-19 19:19] LABS: Add Urine Microscopic? YES; Bilirubin Urine Neg (Negative); Blood Urine 2+ (Negative); Glucose Urine UA Norm (Normal); Ketones Urine Negative (Negative); Leukocyte Esterase Urine 2+ (Negative); Nitrate Urine Positive (Negative); Protein Urine 1+ (Negative); Urine Appearance Hazy (CLEAR); Urine Color Yellow (Yellow); Urobilinogen Urine Neg (Negative); pH Urine 6 (5-7)
[2022-08-19 19:23] LABS: Add Urine Culture? Yes; Amorphous Sediment Urine 2+ /hpf; Bacteria Urine 4+ /hpf; Mucus Urine 1+ /hpf; RBC Urine >100 /hpf (0-2); Squamous Epithelial Cell Urine 0-4 /hpf (0-5); WBC Urine TOO NUMEROUS TO CNT /hpf (0-5)
[2022-08-19] MEDS: sodium chloride 0.9% 500 ML IV (19:26)
[2022-08-19 20:08] LABS: Glucose Point of Care 114 mg/dL (70-110)
[2022-08-19] MEDS: cefTRIAXone 1,000 MG in sodium chloride 0.9% (plus) 50 ML 100 MG IV (20:30)
--- NOTE | 2022-08-19 21:32 | CTR_ITS ---
PROCEDURE INFORMATION: Exam: CT Chest With Contrast; Diagnostic Exam date and time: 08/19/2022 9:57 PM Age: 87 years old Clinical indication: Other: Left pleural effusion; Additional info: L pleural effusion TECHNIQUE: Imaging protocol: Diagnostic computed tomography of the chest with contrast. Radiation optimization: All CT scans at this facility use at least one of these dose optimization techniques: automated exposure control; mA and/or kV adjustment per patient size (includes targeted exams where dose is matched to clinical indication); or iterative reconstruction. Contrast material: OMNI 350; Contrast volume: 80 ml; Contrast route: INTRAVENOUS (IV); REPORTING DATA: Count of CT and Cardiac NM exams in prior 12 months: This patient has received 6 known CTs and 0 known cardiac nuclear medicine studies in the 12 months prior to the current study. COMPARISON: 1. CT chest wo con [id number] 07/16/2022 7:[address] abdomen pelvis wo con [id number] 06/26/2022 9:16 PM RADIATION DOSE METRICS: Total DLP (mGy-cm): 535.24 FINDINGS: Trachea: Tracheobronchial structures are patent. Lungs: Interval development of mucous plugging in the left mainstem bronchus extending into virtually all branches of the left upper, lingular, and lower lobe bronchi. Significant increase in size of a large left pleural effusion with compressive atelectasis of the left lung, underlying pneumonia cannot be ruled out. There is improving aeration in the right upper lobe and right middle lobe suggesting resolving atelectasis/pneumonia however. No pulmonary parenchymal nodules or masses. Pleural spaces: Stable moderate right pleural effusion. No pneumothorax. Heart: Stable moderate enlargement of the heart. Stable calcification of the aortic valve and mitral valve annulus. Coronary arteries: Stable extensive atherosclerotic calcification in the coronary arteries. Esophagus: The esophagus is unremarkable. Mediastinal space: No mediastinal hematoma. No pneumomediastinum. Lymph nodes: No lymphadenopathy. Calcified lymph nodes in the right and left navjot. Vasculature: Stable mild atherosclerotic changes in the visualized arteries. No evidence for aortic aneurysm or aortic dissection. Pulmonary arteries are unremarkable. Pulmonary veins are unremarkable. Liver: The liver is unremarkable. Gallbladder and bile ducts: The gallbladder is unremarkable. No biliary ductal dilatation. Pancreas: Stable marked atrophy of the pancreatic parenchyma. No pancreatic ductal dilatation. 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 It is uncertain whether this connects to the main pancreatic duct. Spleen: The spleen is unremarkable. Adrenal glands: The right and left adrenal glands are unremarkable. Kidneys and ureters: The visualized right and left kidneys are unremarkable. Bones/joints: Bones are diffusely osteopenic. Degenerative changes in the spine and shoulders. Soft tissues: Mild body wall edema. CT/CT chest w con* [id number] IMPRESSION: 1. Interval development of mucous plugging in the left mainstem bronchus extending into virtually all branches of the left upper, lingular, and lower lobe bronchi. Significant increase in size of a large left pleural effusion with compressive atelectasis of the left lung, underlying pneumonia cannot be ruled out. There is improving aeration in the right upper lobe and right middle lobe suggesting resolving atelectasis/pneumonia however. Recommend followup chest imaging to insure resolution of these findings. 2. Stable moderate right pleural effusion. 3. 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 It is uncertain whether this connects to the main pancreatic duct. Reimaging every 2 years for 4 years is recommended. (Reference: Gera, 2017) 4. Mild body wall edema. 5. Incidental/nonacute findings are listed in the report. REFERENCES: Gera CROSS, et al. Management of Incidental Pancreatic Cysts: A White Paper of the ACR Incidental Findings Committee. J Am Romero Radiol. 2017;14(7):911-923.
[2022-08-19] MEDS: iohexol 350 mg/mL 500 mL Btl (per mL) IV (21:42)
--- NOTE | 2022-08-19 23:16 | PC.NURSE ---
Daughter was updated by Dr. Sanchez. She is going to go home. Pt is asleep in bed and was transferred to a hospital bed from [facility]. Pt was cleaned up and excoriation and moisture noted in bilateral groin areas. Pt has pus coming out of penis where chronic indwelling catheter is. Dr Sanchez notified.
--- NOTE | 2022-08-19 23:51 | PM.HP ---
Providers/Chief Complaint Primary Care Provider: Becky Moon DO Chief Complaint: AMS History of Present Illness Tomer High is a 87 year old male with past medical history of hypertension diabetes, recent COVID-19 pneumonia, residential resident was brought in from the residential after he was found to not responsive,His last known normal was sometime between 7 and 8 AM at breakfast.? A family member is with him now, and notes that she saw him this afternoon, and had been home for about 45 minutes before the residential called to say they were sending him here.? However, he had slept almost all the time she was there with him this afternoon.? His blood sugar was found to be 45.? IV was established and D10 fluids were ran on the way here.?Currently blood sugars have improved, and the patient is awake, alert, and talking. He does not remember events of today.? He did not remember eating breakfast.? He denies any increased pain.? He denies any fever.? He has a chronic indwelling Valdovinos catheter. X-ray chesT as well as CT chest done as shown: Complete left lung field atelectasis, bilateral pleural effusion left greater than right.Interval development of mucous plugging in the left mainstem bronchus extending into virtually all branches of the left upper, lingular, and lower lobe bronchi.? Pertinent labs: WBC 13, H&H 10.6/34 , PLT : 540 , serum sodium 139, serum potassium 4, BUN 35 serum creatinine :1.6 , random blood sugar 114, Urine analysis dirty Review of Systems General: Reports: 10 or more systems reviewed and unremarkable except in HPI and below Const: Denies: fever(s), chills, body aches, change in appetite or diaphoresis Card: Denies: palpitations, edema, swelling of feet/ankles, dyspnea on exertion, orthopnea or leg pain with exertion Resp: Reports: dyspnea and productive cough; Denies: wheezing or pain on inspiration GI: Denies: abdominal pain, nausea, vomiting, diarrhea or constipation : Denies: flank pain or difficulty urinating Musc: Denies: back pain, extremity pain or extremity swelling Neuro: Denies: headache(s), difficulty walking or confusion Medications/Allergies Home Medications Medication Instructions Recorded Confirmed Last Taken Type amlodipine 10 mg tablet 10 mg PO DAILY 06/23/22 08/17/22 07/16/22 History linagliptin 5 mg tablet (Tradjenta) 5 mg PO DAILY 06/23/22 08/17/22 07/16/22 History montelukast 10 mg tablet 10 mg PO DAILY 06/23/22 08/17/22 07/16/22 History pioglitazone 30 mg tablet 30 mg PO DAILY 06/23/22 08/17/22 07/16/22 History simvastatin 20 mg tablet 10 mg PO DAILY 06/23/22 08/17/22 07/15/22 History cyanocobalamin (vitamin B-12) 100 100 mcg PO DAILY #60 tabs 06/28/22 08/17/22 07/16/22 Rx mcg tablet ferrous sulfate 325 mg (65 mg 325 mg PO DAILY #60 tabs 06/28/22 08/17/22 07/16/22 Rx iron) tablet (Feosol) hydralazine 25 mg tablet 25 mg PO BID #60 tabs 06/28/22 08/17/22 07/16/22 Rx acetaminophen 325 mg tablet 650 mg PO Q6H PRN Pain 07/05/22 08/17/22 06/29/22 History (Tylenol) bisacodyl 10 mg rectal suppository 10 mg FL DAILY PRN Constipation 07/05/22 08/17/22 Unknown History (Dulcolax (bisacodyl)) bisacodyl 5 mg tablet,delayed 10 mg PO DAILY PRN Constipation 07/05/22 08/17/22 Unknown History release (Dulcolax (bisacodyl)) hydrocodone 5 mg-acetaminophen 325 1 tab PO Q4H PRN Pain 07/05/22 08/17/22 07/05/22 History mg tablet magnesium hydroxide 400 mg/5 mL 30 ml PO DAILY PRN Constipation 07/05/22 08/17/22 Unknown History oral suspension (Milk of Magnesia) ondansetron HCl 4 mg tablet 4 mg PO Q4H PRN Nausea 07/05/22 08/17/22 07/03/22 History polyethylene glycol 3350 17 17 g PO DAILY 07/05/22 08/17/22 07/16/22 History gram/dose oral powder (Miralax) sennosides 8.6 mg tablet (senna) 8.6 mg PO DAILY 07/05/22 08/17/22 07/16/22 History sodium phosphates 19 gram-7 118 ml FL DAILY PRN Constipation 07/05/22 08/17/22 Unknown History gram/118 mL enema (Fleet Enema) albuterol sulfate 90 mcg/actuation 1 inh inhalation Q6H PRN shortness 07/10/22 08/17/22 Unknown Rx aerosol inhaler (Ventolin HFA) of breath or wheezing #6.7 grams atenolol 50 mg tablet 50 mg PO DAILY #30 tabs 07/10/22 08/17/22 07/16/22 Rx budesonide 90 mcg/actuation breath 1 inh inhalation BID #1 ea 07/10/22 08/17/22 07/16/22 Rx activated powder inhaler (Pulmicort Flexhaler) Allergies Allergy/AdvReac Type Severity Reaction Status Date / Time Penicillins Allergy Unknown Unknown Verified 08/17/22 17:12 PFSH Acute PFSH: Medical History (Updated 08/20/22 @ 01:18 by Alexx Sebastian MD) Acute metabolic encephalopathy Acute respiratory failure with hypoxia CRISTINO (acute kidney injury) Anemia Bilateral pleural effusion Chronic kidney disease Constipation Gangrene of right foot History of hypertension History of type 2 diabetes mellitus Hyperlipidemia Hypertension No pertinent past medical history Partial bowel obstruction Peripheral vascular disease Pneumonia due to COVID-19 virus Postoperative anemia UTI (urinary tract infection) Surgical History History of below knee amputation Left History of right below knee amputation Family History Mother Diabetes Father CAD (coronary artery disease) Social History Smoking and tobacco status: never smoked Alcohol intake: never Vitals/I&O/Wt Last Vital Signs Temp 97.8 F 08/19/22 18:16 Pulse 70 08/19/22 19:19 Resp 18 08/19/22 19:19 BP 134/60 08/19/22 23:00 Pulse Ox 98 08/19/22 23:00 O2 Del Method 08/19/22 19:19 O2 Flow Rate 6 08/19/22 19:19 08/19/22 08/19/22 08/20/22 14:59 22:59 06:59 Intake Total 550 / 550 Balance 550 / 550 Physical Exam Const: COMMON NORMALS: patient oriented x3 HENMT: COMMON NORMALS: normocephalic and atraumatic Resp: COMMON NORMALS: normal respiratory effort, No retractions and No use of accessory muscles OTHER: Diminished air entry over entire left lung field. Cardio: COMMON NORMALS: regular rate, regular rhythm, S1 normal heart sound present, S2 normal heart sound present, No gallops present (Cardio), No murmurs present (Cardio), No rub (Cardio) and Peripheral pulses 2+ throughout RATE: regular rate RHYTHM: regular rhythm HEART SOUNDS: S1 normal heart sound present and S2 normal heart sound present PERIPHERAL PULSES: Peripheral pulses 2+ throughout GI: COMMON NORMALS: Normal to inspection, nondistended, normoactive bowel sounds present, Soft to palpation, non-tender, No hepatosplenomegaly present and no masses AUSCULTATION: Yes normoactive bowel sounds PALPATION: Yes Soft to palpation and Yes No hepatosplenomegaly present RECTAL EXAM: Yes deferred Extremity: COMMON NORMALS: no clubbing, cyanosis or edema and no pedal edema Neuro: COMMON NORMALS: patient oriented x3 Data 08/19/22 18:29 08/19/22 18:29 A&P Assessment and plan (1) Status post below knee amputation of right lower extremity: (2) Acute metabolic encephalopathy: (3) Diabetes: (4) Complete atelectasis of left lung: (5) CKD (chronic kidney disease) stage 3, GFR 30-59 ml/min: (6) Hypertension: (7) Bilateral pleural effusion: Plan 87 year old male with past medical history of hypertension diabetes, recent COVID-19 pneumonia, residential resident was brought in from the residential after he was found to not responsive. Assessment; Acute metabolic encephalopathy secondary to hypoglycemia. Currently blood sugar is satisfactory, monitor fingerstick glucose every 4 hours Monitor mentation, avoid hypoglycemia Complete atelectasis of left lung field: Combination of compressive atelectasis from large left-sided pleural effusion, as well as reabsorption atelectasis from mucous plugging. Currently saturating well on 5 L supplemental oxygen, not in significant respiratory distress. For now we will continue with nebs Mucomyst hypertonic saline, chest vest. Patient will need both thoracentesis as well as bronchoscopy, sooner than later. Till the time both becomes available, we will continue with conservative medical management. Follow sputum Gram stain and culture, urine Legionella antigen , bacterial antigen panel. Procalcitonin: Family is agreeable for intubation. Supplemental oxygen as needed Empirically has been covered with cefepime, though clinical suspicion for underlying pneumonia is low. Monitor serial x-ray chest History of diabetes: LDSSI, monitor fingerstick glucose Bilateral pleural effusion: Significant left pleural effusion, moderate right pleural effusion. Patient will need thoracentesis, consult radiology for the same. CKD stage III: Serum creatinine is at baseline Avoid nephrotoxic's Monitor BMP Intake output charting UTI: Follow urine culture Cefepime will cover for UTI CODE STATUS: Full code DVT prophylaxis on Lovenox Attestations Medical Necessity Statement*: Patient needs to be in hospital for management of complete left lung atelectasis. Anticipated length of stay greater than 2 midnightS. Critical Care Time: Critical Care Time (min): 35 Coding Level of Care Code Critical Care >/= 30 minutes Diagnoses Status post below knee amputation of right lower extremity Z89.511 Acute metabolic encephalopathy G93.41 Diabetes E11.9 Complete atelectasis of left lung J98.11 CKD (chronic kidney disease) stage 3, GFR 30-59 ml/min N18.30 Hypertension I10 Bilateral pleural effusion J90
[2022-08-20] VITALS (64 sets, daily range): BP systolic 87–145; BP diastolic 43–66; PULSE 66–86; RESP 14–24; TEMP 37.1; O2SAT 90–100; BMI 25.9
[2022-08-20] MEDS: nystatin powder 15 gm Btl 1 APPLIC TOPICAL (00:09)
[2022-08-20] MEDS: enoxaparin 40 mg/0.4 mL Syringe SUBCUT (00:27)
[2022-08-20] MEDS: cefepime 1,000 MG in sodium chloride 0.9% (plus) 50 ML 100 MG IV (02:25)
[2022-08-20] MEDS: acetylcysteine 200 mg/mL MDV 10 mL INHALATION ×6 (04:32→22:59)
[2022-08-20] MEDS: albuterol 2.5 mg/3 mL Neb INHALATION (04:32)
[2022-08-20] MEDS: sodium chloride 3.5% neb 4 mL Neb INHALATION ×3 (04:32→20:04)
[2022-08-20] MEDS: ipratropium 0.5 mg/2.5 mL Neb INHALATION (04:32)
[2022-08-20 05:01] LABS: Basophils % 0.2 %; Eosinophils % 0.1 %; Hematocrit 30.4 % (42.0-52.0); Hemoglobin 8.8 g/dL (11.7-16.6); Lymphocytes # 0.8 10^3/uL (0.8-4.8); Lymphocytes % 5.8 %; Mean Corpuscular HGB Conc 28.9 g/dL (30.0-36.0); Mean Corpuscular Hemoglobin 29.4 pg (28.0-34.0); Mean Corpuscular Volume 101.7 fl (80-94); Mean Platelet Volume 10.6 fL (7.4-10.4); Monocytes # 0.8 10^3/uL (0.2-0.9); Monocytes % 5.8 %; Neutrophils # 11.46 10^3/uL (1.8-7.7); Neutrophils % 87.4 %; Nucleated Red Blood Cells % 0 %; Platelet Count 427 10^3/cmm (130-400); Red Blood Count 2.99 10^6/uL (4.1-5.3); White Blood Count 13.1 10^3/uL (4.0-10.0)
[2022-08-20 05:26] LABS: Albumin Level 2.1 g/dL (3.5-5.2); Alkaline Phosphatase 87 U/L (40-130); Blood Urea Nitrogen 31 mg/dL (8-23); Calcium 7.5 mg/dL (8.5-10.5); Carbon Dioxide 22 mmol/L (22-29); Chloride 106 mmol/L (98-107); Globulin 2.8 g/dL (1.3-4.6); Glucose 63 mg/dL (65-115); Osmolality Calculated 295 mOsm/kg (285-295); Sodium 140 mmol/L (136-145); Total Bilirubin 0.2 mg/dL (0.15-1.2); Total Protein 4.9 g/dL (6.6-8.7)
[2022-08-20 05:28] LABS: Procalcitonin 0.13 ng/mL (0-0.5)
[2022-08-20 05:32] LABS: Anion Gap 15.8 (5-19)
[2022-08-20 05:33] LABS: Aspartate Amino Transferase 13 U/L (0-40); Potassium 3.8 mmol/L (3.5-5.1)
[2022-08-20 05:34] LABS: Alanine Aminotransferase < 5 U/L (0-41)
--- NOTE | 2022-08-20 07:49 | ECG_ITS ---
[facility] Test Date: 2022-08-20 Pat Name: Tomer High Department: Room: ICU11 Gender: Male Frame Repairer: : 1935 Requested By: Dwight Bravo Order Number: [id number] Rita MD: Edwin Lawrence M.D. Measurements Intervals [place] Rate: 79 P: 77 MS: 203 QRS: 1 QRSD: 110 T: 55 QT: 405 QTc: 466 Interpretive Statements SINUS RHYTHM WITH OCCASIONAL SUPRAVENTRICULAR PREMATURE COMPLEXES Compared to ECG 07/16/2022 19:41:42 First degree AV block no longer present ST (T wave) deviation no longer present Prolonged QT interval no longer present Electronically Signed On 08-20-2022 15:16:32 TEACHER AIDE CLERICAL by Edwin Lawrence M.D. [email or web address]
--- NOTE | 2022-08-20 07:50 | USR_ITS ---
PROCEDURE INFORMATION: Exam: US Retroperitoneal; Complete; Kidneys and Bladder Exam date and time: 08/20/2022 10:13 AM Age: 87 years old Clinical indication: Other: Failure; Additional info: Dvt TECHNIQUE: Imaging protocol: Real-time ultrasound of the retroperitoneum with image documentation. Complete exam focused on the kidneys and bladder. COMPARISON: CT abdomen pelvis w con* [id number] 06/28/2022 8:52 PM FINDINGS: Right kidney: Normal. No stones. No hydronephrosis. Left kidney: Normal. No stones. No hydronephrosis. Urinary bladder: Valdovinos catheter balloon present. Urinary bladder is collapsed limiting assessment.. US/US renal BI* [id number] IMPRESSION: Unremarkable kidneys.
[2022-08-20] MEDS: budesonide 0.5 mg/2 mL Neb INHALATION ×2 (07:55→20:04)
[2022-08-20] MEDS: ipratropium-albuterol 3 mL Neb INHALATION ×5 (07:55→22:59)
[2022-08-20 07:58] LABS: Glucose Point of Care 52 mg/dL (70-110)
[2022-08-20 09:20] LABS: Troponin(5th) Baseline 139 ng/L (0-15)
[2022-08-20 09:21] LABS: NT Pro B Type Natriuretic Pept 2523 pg/mL (0-450)
[2022-08-20] MEDS: atenolol 50 mg Tablet PO (09:46)
[2022-08-20] MEDS: amlodipine 10 mg Tablet PO (09:46)
[2022-08-20] MEDS: ferrous sulfate EC 325 mg Tablet PO (09:46)
[2022-08-20] MEDS: montelukast sodium 10 mg Tablet PO (09:46)
[2022-08-20] MEDS: atorvastatin 40 mg Tablet 20 MG PO (09:46)
[2022-08-20] MEDS: octreotide 100 mcg/mL SDV 50 MCG IVP (09:47)
[2022-08-20] MEDS: guaiFENesin 600 mg Tablet 1200 MG PO ×2 (09:47→17:46)
[2022-08-20] MEDS: vancomycin 1,000 MG in sodium chloride 0.9% 250 ML 250 MG IV (09:47)
[2022-08-20 10:09] LABS: Glucose Point of Care 98 mg/dL (70-110)
--- NOTE | 2022-08-20 11:11 | PM.PN ---
Subjective Subjective: Patient was seen this morning, review of his medical chart from [facility]'s shows that he has been on glipizide, his blood sugars drip down to the 50s, he is alert and awake and was given orange juice, will place him on octreotide for glipizide toxicity and hypoglycemia associated, he is a bit encephalopathic this morning, tells me that he lives in [facility] his family lives at [facility] but he is at [facility], denies any chest pain, no palpitations Vitals/I&O/Wt Last Vital Signs Temp 97.8 F 08/19/22 18:16 Pulse 79 08/20/22 11:05 Resp 17 08/20/22 11:05 BP 111/52 08/20/22 10:00 Pulse Ox 99 08/20/22 11:05 O2 Del Method 08/20/22 11:05 O2 Flow Rate 3 08/20/22 11:05 08/19/22 08/20/22 08/20/22 22:59 06:59 14:59 Intake Total 550 / 550 50 / 600 120 / 120 Balance 550 / 550 50 / 600 120 / 120 Weight last 48 hrs Weight 72.83 kg Weight 72.83 kg Physical Exam Const: COMMON NORMALS: no acute distress ORIENTATION/CONSCIOUSNESS: Yes awake and Yes oriented to person; not oriented to place and not oriented to time Resp: COMMON NORMALS: normal respiratory effort, No retractions and No use of accessory muscles AUSCULTATION: wheezes Cardio: COMMON NORMALS: regular rate, regular rhythm, S1 normal heart sound present and S2 normal heart sound present RATE: regular rate RHYTHM: regular rhythm HEART SOUNDS: S1 normal heart sound present and S2 normal heart sound present GI: COMMON NORMALS: Normal to inspection, nondistended, normoactive bowel sounds present and non-tender Extremity: COMMON NORMALS: no pedal edema Neuro: SENSORIUM/ORIENTATION: Yes oriented to person, No oriented to place and No oriented to time Data 08/20/22 03:24 08/20/22 03:24 A&P Assessment and plan (1) Status post below knee amputation of right lower extremity: (2) Acute metabolic encephalopathy: (3) Diabetes: (4) Complete atelectasis of left lung: (5) CKD (chronic kidney disease) stage 3, GFR 30-59 ml/min: (6) Hypertension: (7) Bilateral pleural effusion: (8) UTI (urinary tract infection): (9) Adverse effect of glipizide: (10) Hypoglycemia: (11) Acute respiratory failure with hypoxia: (12) Pneumonia: (13) NSTEMI (non-ST elevated myocardial infarction): (14) Diastolic CHF, acute: (15) Pulmonary edema: (16) S/P bilateral below knee amputation: (17) Acute anemia: (18) Hypoalbuminemia: (19) Muscular deconditioning: (20) Protein calorie malnutrition: (21) Infection due to extended spectrum beta lactamase (ESBL) producing Proteus mirabilis: Plan 87 year old male with past medical history of hypertension diabetes, recent COVID-19 pneumonia, senior care resident was brought in from the senior care after he was found to not responsive. Assessment; Acute metabolic encephalopathy secondary to hypoglycemia, glipizide toxicity Has persistent hypoglycemia episodes this morning 52 requiring or juice Currently blood sugar is satisfactory, monitor fingerstick glucose every hour Monitor mentation, avoid hypoglycemia 1 dose octreotide for glipizide toxicity, if persistent hypoglycemia we will start him on a octreotide drip Also has evidence of UTI and pneumonia which could playing a role in terms of his mentation Acute hypoglycemia secondary to glipizide toxicity As above Acute hypoxic respiratory failure Multifactorial from atelectasis, bilateral pleural effusions, mucous plugging, underlying pneumonia, fluid overload, diastolic CHF exacerbation, pulm edema -Recent history of COVID-19 infection Plan -Aspiration precautions -Broad-spectrum antibiotic therapy, meropenem, vancomycin -Atelectasis long as below -Elevated BNP, has crackles on lung branham, will give 1 dose of Lasix with albumin therapy, daily dose of Lasix -Hold off on steroid therapy Complete atelectasis of left lung field: Combination of compressive atelectasis from large left-sided pleural effusion, as well as reabsorption atelectasis from mucous plugging. Currently saturating well on 5 L supplemental oxygen, not in significant respiratory distress. -I am wondering if he is aspirating, aspiration precautions, dysphagia diet, speech therapy eval For now we will continue with nebs Mucomyst hypertonic saline, chest vest. Patient will need both thoracentesis as well as bronchoscopy, sooner than later. Till the time both becomes available, we will continue with conservative medical management. Follow sputum Gram stain and culture, urine Legionella antigen , bacterial antigen panel. Procalcitonin: Family is agreeable for intubation if required Supplemental oxygen as needed Diastolic CHF, acute exacerbation with pulm edema with bilateral pleural effusions -As above Non-ST elevation PA -Likely type II NSTEMI, supply demand ischemia from respiratory failure above -Serial EKGs troponins telemetry monitoring Urinary tract infection -Has a history of ESBL Proteus infections, quite resistant to most antibiotics -Has a penicillin allergy, Zosyn is not an option unless we can do allergy testing -We will start him on meropenem while urine cultures, blood cultures -Order renal ultrasound History of diabetes: LDSSI, monitor fingerstick glucose Bilateral pleural effusion: Significant left pleural effusion, moderate right pleural effusion. Patient will need thoracentesis, consult radiology for the same. CKD stage III: Serum creatinine is at baseline Avoid nephrotoxic's Monitor BMP Intake output charting Acute on chronic anemia -Hemoccult stool, iron studies, ferritin, B12, folate -Continue Protonix Deconditioning, PT OT once stable Has evidence of physical deconditioning, muscle wasting, has temporal muscle wasting, peripheral muscle wasting, Protein calorie malnutrition, protein shakes, dietary eval Risk of aspiration, dysphagia level diet, speech therapy eval CODE STATUS: Full code DVT prophylaxis on Lovenox Attestations Medical Necessity Statement*: Patient requires hospitalization due to glipizide induced hypoglycemia, acute respiratory failure multifactorial from pneumonia, fluid overload, atelectasis, mucous plugging, NSTEMI, UTI, CKD, acute on chronic anemia, Coding Level of Care Code Critical Care >/= 30 minutes Critical care time (in minutes): 30 The high probability of a clinically significant, sudden or life threatening deterioration, as referenced in this documentation, required my full and direct attention, intervention and personal management. The critical care time shown is in addition to time spent performing any reported separately billable procedures and includes the following: [x] Data and vital sign review and interpretation [x] Patient assessment, examination and intervention [x] Medication orders and management [x] Patient/Family updates as able [x] Care Coordination and Documentation. Diagnoses Status post below knee amputation of right lower extremity Z89.511 Acute metabolic encephalopathy G93.41 Diabetes E11.9 Complete atelectasis of left lung J98.11 CKD (chronic kidney disease) stage 3, GFR 30-59 ml/min N18.30 Hypertension I10 Bilateral pleural effusion J90 UTI (urinary tract infection) N39.0 Adverse effect of glipizide T38.3X5A Hypoglycemia E16.2 Acute respiratory failure with hypoxia J96.01 Pneumonia J18.9 NSTEMI (non-ST elevated myocardial infarction) I21.4 Diastolic CHF, acute I50.31 Pulmonary edema J81.1 S/P bilateral below knee amputation Z89.512; Z89.511 Acute anemia D64.9 Hypoalbuminemia E88.09 Muscular deconditioning R29.898 Protein calorie malnutrition E46 Infection due to extended spectrum beta lactamase (ESBL) producing Proteus mirabilis A49.8; Z16.12
[2022-08-20] MEDS: meropenem 1,000 MG in sodium chloride 0.9% (plus) 50 ML 100 MG IV ×2 (11:20→21:42)
[2022-08-20 11:21] LABS: Glucose Point of Care 111 mg/dL (70-110)
[2022-08-20] MEDS: albumin 25 G/100 ML BAG 60 G IV (11:58)
[2022-08-20] MEDS: pantoprazole 40 mg SDV IVP ×2 (11:58→22:37)
[2022-08-20] MEDS: FUROsemide 10 mg/mL SDV 4mL 40 MG IVP (11:59)
[2022-08-20] MEDS: sucralfate 1 gm Tablet PO ×2 (11:59→22:36)
[2022-08-20 12:12] LABS: Glucose Point of Care 131 mg/dL (70-110)
[2022-08-20 12:46] LABS: Troponin 5 2HR 124.8 ng/L (0-15); Troponin 5 2HR Delta -14.2 ABS# (0-10)
[2022-08-20 13:11] LABS: Folate Level 8.3 ng/mL (4.5-32.2)
[2022-08-20 13:15] LABS: Glucose Point of Care 151 mg/dL (70-110)
[2022-08-20 13:36] LABS: Ferritin 397 ng/mL (30-400); Iron 43 ug/dL (59-158)
[2022-08-20 13:52] LABS: Vitamin B12 269 pg/mL (232-1245)
[2022-08-20 14:11] LABS: Glucose Point of Care 167 mg/dL (70-110)
--- NOTE | 2022-08-20 14:13 | PC.OT ---
Occupational therapy evaluation attempted. Patient was sleeping and refused evaluation at this time. After discussion with Physical therapy and nursing, patient is most likely not appropriate for Occupational therapy. He is dependent in self-care at retirement and transfers are done with [facility]. Occupational therapy evaluation will not be completed at this time.
[2022-08-20 15:26] LABS: Glucose Point of Care 167 mg/dL (70-110)
[2022-08-20 16:28] LABS: Glucose Point of Care 182 mg/dL (70-110)
[2022-08-20 17:03] LABS: Troponin 5 6HR 140.4 ng/L (0-15); Troponin 5 6HR Delta 1.4 ng/L (0-12)
[2022-08-20 17:36] LABS: Glucose Point of Care 200 mg/dL (70-110)
[2022-08-20] MEDS: insulin lispro 100 unit/1 mL SUBCUT (17:46)
[2022-08-20 19:45] LABS: Glucose Point of Care 191 mg/dL (70-110)
[2022-08-20 22:54] LABS: Glucose Point of Care 145 mg/dL (70-110)
[2022-08-21] VITALS (18 sets, daily range): BP systolic 98–139; BP diastolic 48–61; PULSE 68–79; RESP 16–23; TEMP 36.7–36.8; O2SAT 93–100; BMI 25.9
[2022-08-21 00:10] LABS: Glucose Point of Care 131 mg/dL (70-110)
[2022-08-21] MEDS: enoxaparin 40 mg/0.4 mL Syringe SUBCUT (01:48)
[2022-08-21] MEDS: acetylcysteine 200 mg/mL MDV 10 mL INHALATION ×4 (03:46→15:34)
[2022-08-21] MEDS: ipratropium-albuterol 3 mL Neb INHALATION ×4 (03:46→15:39)
[2022-08-21 04:14] LABS: Basophils # 0.1 10^3/uL (0.0-0.1); Basophils % 1.2 %; Eosinophils # 0.1 10^3/uL (0.0-0.8); Eosinophils % 1.2 %; Hematocrit 25.5 % (42.0-52.0); Hemoglobin 7.8 g/dL (11.7-16.6); Lymphocytes # 0.6 10^3/uL (0.8-4.8); Lymphocytes % 6.5 %; Mean Corpuscular HGB Conc 30.6 g/dL (30.0-36.0); Mean Corpuscular Hemoglobin 29.9 pg (28.0-34.0); Mean Corpuscular Volume 97.7 fl (80-94); Mean Platelet Volume 10.3 fL (7.4-10.4); Monocytes # 0.7 10^3/uL (0.2-0.9); Monocytes % 7.7 %; Neutrophils # 7.48 10^3/uL (1.8-7.7); Neutrophils % 82.5 %; Nucleated Red Blood Cells % 0 %; Platelet Count 338 10^3/cmm (130-400); Red Blood Count 2.61 10^6/uL (4.1-5.3); White Blood Count 9.1 10^3/uL (4.0-10.0)
[2022-08-21 04:27] LABS: Alanine Aminotransferase < 5 U/L (0-41); Albumin Level 2.4 g/dL (3.5-5.2); Alkaline Phosphatase 79 U/L (40-130); Anion Gap 14.6 (5-19); Aspartate Amino Transferase 9 U/L (0-40); Blood Urea Nitrogen 30 mg/dL (8-23); Calcium 7.6 mg/dL (8.5-10.5); Carbon Dioxide 24 mmol/L (22-29); Chloride 104 mmol/L (98-107); Globulin 2.5 g/dL (1.3-4.6); Glucose 105 mg/dL (65-115); Osmolality Calculated 295 mOsm/kg (285-295); Potassium 3.6 mmol/L (3.5-5.1); Sodium 139 mmol/L (136-145); Total Bilirubin 0.3 mg/dL (0.15-1.2); Total Protein 4.9 g/dL (6.6-8.7)
[2022-08-21 04:38] LABS: NT Pro B Type Natriuretic Pept 2596 pg/mL (0-450)
--- NOTE | 2022-08-21 06:00 | XRR_ITS ---
PROCEDURE INFORMATION: Exam: XR Chest Exam date and time: 08/21/2022 5:36 AM Age: 87 years old Clinical indication: Shortness of breath; Additional info: SOB TECHNIQUE: Imaging protocol: Radiologic exam of the chest. Views: 1 view. COMPARISON: CT chest w con* [id number] 08/19/2022 9:57 PM FINDINGS: Lungs: Left lung is re-expanded. Pleural spaces: Reduced left pleural effusion. Negative for pneumothorax. Heart/Mediastinum: Cardiomegaly. Bones/joints: Unremarkable. XR/XR chest 1V portable [id number] IMPRESSION: Re-expansion of left lung.
[2022-08-21] MEDS: budesonide 0.5 mg/2 mL Neb INHALATION (08:03)
[2022-08-21] MEDS: sodium chloride 3.5% neb 4 mL Neb INHALATION (08:04)
[2022-08-21] MEDS: guaiFENesin 600 mg Tablet 1200 MG PO (08:12)
[2022-08-21] MEDS: atenolol 50 mg Tablet PO (08:12)
[2022-08-21] MEDS: montelukast sodium 10 mg Tablet PO (08:12)
[2022-08-21] MEDS: atorvastatin 40 mg Tablet 20 MG PO (08:12)
[2022-08-21] MEDS: amlodipine 10 mg Tablet PO (08:13)
[2022-08-21] MEDS: vancomycin 1,000 MG in sodium chloride 0.9% 250 ML 250 MG IV (08:13)
[2022-08-21] MEDS: ferrous sulfate EC 325 mg Tablet PO (08:13)
[2022-08-21 09:05] LABS: Glucose Point of Care 125 mg/dL (70-110)
[2022-08-21] MEDS: meropenem 1,000 MG in sodium chloride 0.9% (plus) 50 ML 100 MG IV (09:30)
[2022-08-21 10:59] LABS: Glucose Point of Care 173 mg/dL (70-110)
[2022-08-21] MEDS: insulin lispro 100 unit/1 mL SUBCUT (11:21)
[2022-08-21] MEDS: pantoprazole 40 mg SDV IVP (11:21)
--- NOTE | 2022-08-21 12:19 | PC.CHAP ---
Pastoral Care Encounter/Spiritual Assessment Type of Contact [] Declined title officer visit [] Patient/Family/Request visit [] Outpatient visit [] Follow-up visit [] Physician referral [] Code/Alert [x] Routine visit [] Staff referral [] Actively dying [x] Patient sleeping [] Family support [] [] Out of room [] Palliative care [] [] Receiving care in room [] Pre-surgical visit [] Trauma [] Long length of stay [x] ICU visit [] Other: Relational/Emotional Strength [] Patient feels connected with others/family/visitors/staff [] Distress [] Loneliness/isolation [] Abandonment Spirituality of Patient [] Person of Gayla [] Attends Methodist of their Gayla [] Believes in Prayer [] Reads Bible or Tenriism materials [] There are Spiritual issues to be addressed Genetic Coordinator Interventions [x] Prayer [] Active listening [] Non-anxious presence [] Spiritual/emotional support [] Crisis/trauma care [] Spiritual counseling [] Bereavement support [] Provided bereavement packet [] Provided Bible/devotional materials [] Provided toy/stuffed animal, coloring book to patient or family member [] Provided Communion [] Anointing/[place] [] Salvation [x] Completed spiritual assessment [] Other: Impact on Illness or Injury [] Angry [] Fearful [] Anxious [] Often cries [] Exhaustion [] Unable to work [] Unable to attend baptism [] Unable to walk/stand [] Unable to read [] Unable to drive [] Unable to eat/drink [] Unable to sleep [] Unable to be with family [] Patient intubated [] Other: Summary Time spent with patient
--- NOTE | 2022-08-21 13:48 | PM.DCS ---
Discharge Providers Date of Admission: 08/20/22 00:00 Date of Discharge: August 21, 2022 Attending Provider at Admission: Alexx Sebastian MD Attending Provider at Discharge: Yariel Green Primary Care Provider: Becky Moon DO Diagnoses at Discharge Discharge Diagnosis (1) Status post below knee amputation of right lower extremity: Status: Acute (2) Acute metabolic encephalopathy: Status: Acute (3) Diabetes: Status: Acute (4) Complete atelectasis of left lung: Status: Acute (5) CKD (chronic kidney disease) stage 3, GFR 30-59 ml/min: Status: Acute (6) Hypertension: Status: Acute (7) Bilateral pleural effusion: Status: Acute (8) UTI (urinary tract infection): Status: Acute (9) Adverse effect of glipizide: Status: Acute (10) Hypoglycemia: Status: Acute (11) Acute respiratory failure with hypoxia: Status: Acute (12) Pneumonia: Status: Acute (13) NSTEMI (non-ST elevated myocardial infarction): Status: Acute (14) Diastolic CHF, acute: Status: Acute (15) Pulmonary edema: Status: Acute (16) S/P bilateral below knee amputation: Status: Acute (17) Acute anemia: Status: Acute (18) Hypoalbuminemia: Status: Acute (19) Muscular deconditioning: Status: Acute (20) Protein calorie malnutrition: Status: Acute (21) Infection due to extended spectrum beta lactamase (ESBL) producing Proteus mirabilis: Status: Acute Reason for Visit Reason for Visit: AMS Hospital Course Hospital Course Pleasant 87-year-old gentleman was admitted due to acute hypoxic respiratory failure with finding of severe left lung atelectasis/collapse pneumonia, possible aspiration pneumonia, fluid overload after intervention, he was found unresponsive. On presentation found to be severely hypoglycemic, glucose 45, receiving dextrose solution IV as well as octreotide. Glipizide was held. Was treated empirically with meropenem with possible UTI and presentation after initial dose of cefepime due to history of ESBL infection. Received intermittent diuretic for fluid overload, with noted significant left pleural effusion and moderate right pleural effusions on presentation. He received chest vest therapy, hypertonic saline, Mucomyst for severe atelectasis/mucous plugging/left lung collapse. On repeat imaging left lung has reexpanded with reduced left pleural effusion. His mental status has significant improved with resolution of hypoglycemia. Please do not continue glipizide and consider any other medications that may cause hypoglycemia. MRSA PCR was negative. Urine bacterial antigens were negative. Urine culture growing gram-negative rods x2. For now he will continue with ertapenem to complete course for UTI. Please follow-up final urine cultures. Moderate troponin elevation on presentation, without chest pain, with mild downtrend with improvement, thought to be type II PR secondary to demand ischemia with respiratory failure. Please follow-up and consider further assessment with CAD. Attempted to also contact his daughter for an update. Continue level 5 dysphagia diet, minced and moist, continuous patient precautions. Had protein shakes with meals for protein calorie malnutrition. Continue flutter valve, expectorants. Follow-up for reassessment after pneumonia, mucous plugging, CHF exacerbation, NSTEMI, UTI, hypoglycemia. Continue to monitor glucose 3 times daily over the next week. Stop glipizide. Monitor for any low glucose. Avoid any medications that may cause hypoglycemia. Continue follow-up regarding chronic conditions, anemia, chronic kidney disease, diabetes and other. Continue follow-up with physical therapy due to deconditioning, continue follow-up with speech therapy. Blood pressures intermittently on the soft side, 102/48. Please stop lisinopril for now. Monitor blood pressures 3 times daily, consider up with her lisinopril may be safe to resume. Recheck renal function next week. Consider follow-up with nephrology. Continue work-up with regards to macrocytic anemia with mild iron deficiency as well. Hemoccult was requested here but could not be collected. Follow up regarding chronic Valdovinos catheter. Follow-up with urology. Physical Exam Narrative: Wakes up easily to voice. States that he is doing well. Denies any pain or discomfort. He knows he is in the hospital in [place]. Tells me the only thing is bothering him is occasional constipation. Const: GENERAL APPEARANCE: cooperative ORIENTATION/CONSCIOUSNESS: Yes awake HENMT: COMMON NORMALS: oropharynx normal Neck/C-Spine: COMMON NORMALS: no JVD Resp: COMMON NORMALS: normal respiratory effort and clear to auscultation bilaterally AUSCULTATION: clear to auscultation bilaterally Cardio: COMMON NORMALS: no JVD, regular rhythm, S1 normal heart sound present, S2 normal heart sound present and No murmurs present (Cardio) RHYTHM: regular rhythm HEART SOUNDS: S1 normal heart sound present and S2 normal heart sound present GI: COMMON NORMALS: Normal to inspection, nondistended, normoactive bowel sounds present, Soft to palpation and non-tender PALPATION: Yes Soft to palpation Extremity: COMMON NORMALS: no joint enlargement and no pedal edema OTHER: Bilateral BKA Neuro: COMMON NORMALS: moves all extremities Skin: COMMON NORMALS: no rashes or lesions noted GENERAL SKIN EXAM: no rashes or lesions noted Discharge Data Studies Completed and Pending Completed Studies During Hospitalization Category Date Time Status CT chest w con* [id number] Stat Cat Scan 08/19/22 21:32 Completed XR chest 1V portable [id number] Routine Exams 08/21/22 06:00 Completed XR chest 1V portable [id number] Stat Exams 08/19/22 18:42 Completed US renal BI* [id number] Routine Ultrasound 08/20/22 07:50 Completed Pending at discharge Category Date Time Status COVID [SARS Covid-2 Antigen] Routine Lab 08/21/22 13:20 Received Complete Blood Count w/Auto AM LABS Lab 08/22/22 04:00 Ordered Comprehensive Metabolic Panel AM LABS Lab 08/22/22 04:00 Ordered NT Pro B Type Natriuretic Pept QAM Lab 08/22/22 06:00 Ordered NT Pro B Type Natriuretic Pept QAM Lab 08/23/22 06:00 Ordered Occult Blood Stool [Immunochemical Fecal OCB] Routine Lab 08/20/22 11:26 Uncollected Sputum Culture and Gram Stain Routine Lab 08/20/22 00:00 Uncollected Urine Culture Stat Lab 08/19/22 18:30 Results Radiology Impressions Chest CT 08/19/22 21:32 IMPRESSION: 1. Interval development of mucous plugging in the left mainstem bronchus extending into virtually all branches of the left upper, lingular, and lower lobe bronchi. Significant increase in size of a large left pleural effusion with compressive atelectasis of the left lung, underlying pneumonia cannot be ruled out. There is improving aeration in the right upper lobe and right middle lobe suggesting resolving atelectasis/pneumonia however. Recommend followup chest imaging to insure resolution of these findings. 2. Stable moderate right pleural effusion. 3. 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 It is uncertain whether this connects to the main pancreatic duct. Reimaging every 2 years for 4 years is recommended. (Reference: Gera, 2017) 4. Mild body wall edema. 5. Incidental/nonacute findings are listed in the report. REFERENCES: Gera CROSS, et al. Management of Incidental Pancreatic Cysts: A White Paper of the ACR Incidental Findings Committee. J Am Romero Radiol. 2017;14(7):911-923. Renal Ultrasound 08/20/22 07:50 IMPRESSION: Unremarkable kidneys. Chest X-Ray 08/21/22 06:00 IMPRESSION: Re-expansion of left lung. Laboratory Results WBC 9.1 10^3/uL (4.0-10.0) 08/21/22 03:50 RBC 2.61 10^6/uL (4.1-5.3) L 08/21/22 03:50 Hgb 7.8 g/dL (11.7-16.6) L 08/21/22 03:50 Hct 25.5 % (42.0-52.0) L 08/21/22 03:50 MCV 97.7 fl (80-94) H 08/21/22 03:50 MCH 29.9 pg (28.0-34.0) 08/21/22 03:50 MCHC 30.6 g/dL (30.0-36.0) D 08/21/22 03:50 RDW 16.0 % (12.1-15.1) H 08/21/22 03:50 Plt Count 338 10^3/cmm (130-400) 08/21/22 03:50 MPV 10.3 fL (7.4-10.4) 08/21/22 03:50 Neut % (Auto) 82.5 % 08/21/22 03:50 Lymph % (Auto) 6.5 % 08/21/22 03:50 [place] % (Auto) 7.7 % 08/21/22 03:50 Eos % (Auto) 1.2 % 08/21/22 03:50 Baso % (Auto) 1.2 % 08/21/22 03:50 Neut # (Auto) 7.48 10^3/uL (1.8-7.7) 08/21/22 03:50 Lymph # (Auto) 0.6 10^3/uL (0.8-4.8) L 08/21/22 03:50 [place] # (Auto) 0.7 10^3/uL (0.2-0.9) 08/21/22 03:50 Eos # (Auto) 0.1 10^3/uL (0.0-0.8) 08/21/22 03:50 Baso # (Auto) 0.1 10^3/uL (0.0-0.1) 08/21/22 03:50 Nucleated RBC % (auto) 0 % 08/21/22 03:50 Nucleated RBCs # 0.0 /100WBC 08/21/22 03:50 Sodium 139 mmol/L (136-145) 08/21/22 03:50 Potassium 3.6 mmol/L (3.5-5.1) 08/21/22 03:50 Chloride 104 mmol/L (98-107) 08/21/22 03:50 Carbon Dioxide 24 mmol/L (22-29) 08/21/22 03:50 Anion Gap 14.6 (5-19) 08/21/22 03:50 BUN 30 mg/dL (8-23) H 08/21/22 03:50 Creatinine 1.7 mg/dL (0.7-1.2) H 08/21/22 03:50 GFR Calculation Not Reportable 08/21/22 03:50 Glucose 105 mg/dL (65-115) 08/21/22 03:50 POC Glucose 173 mg/dL (70-110) H 08/21/22 10:56 Calculated Osmolality 295 mOsm/kg (285-295) 08/21/22 03:50 Lactate 1.0 mmol/L (0.5-2.2) 08/19/22 19:40 Calcium 7.6 mg/dL (8.5-10.5) L 08/21/22 03:50 Magnesium 2.0 mg/dL (1.7-2.3) 08/20/22 03:24 Iron 43 ug/dL (59-158) L 08/20/22 12:15 Ferritin 397 ng/mL (30-400) 08/20/22 12:15 Total Bilirubin 0.3 mg/dL (0.15-1.2) 08/21/22 03:50 AST 9 U/L (0-40) 08/21/22 03:50 ALT < 5 U/L (0-41) 08/21/22 03:50 Alkaline Phosphatase 79 U/L (40-130) 08/21/22 03:50 Troponin T Baseline 139 ng/L (0-15) H* 08/20/22 08:38 Troponin T 120 Minute 124.8 ng/L (0-15) H 08/20/22 11:54 Delta Troponin T -14.2 ABS# (0-10) L 08/20/22 11:54 Troponin T Hi Sens 6Hr 140.4 ng/L (0-15) H 08/20/22 15:47 Troponin T Hi Sens 6Hr Delta 1.4 ng/L (0-12) 08/20/22 15:47 C-Reactive Protein 22.2 mg/L (0.0-4.9) H 08/19/22 18:29 NT-Pro-B Natriuret Pep 2596 pg/mL (0-450) H 08/21/22 03:50 Total Protein 4.9 g/dL (6.6-8.7) L 08/21/22 03:50 Albumin 2.4 g/dL (3.5-5.2) L 08/21/22 03:50 Globulin 2.5 g/dL (1.3-4.6) 08/21/22 03:50 Vitamin B12 269 pg/mL (232-1245) 08/20/22 12:15 Folate 8.3 ng/mL (4.5-32.2) 08/20/22 12:15 Procalcitonin 0.13 ng/mL (0-0.5) 08/20/22 03:24 Urine Color Yellow (Yellow) 08/19/22 18:30 Urine Appearance Hazy (CLEAR) A 08/19/22 18:30 Urine pH 6 (5-7) 08/19/22 18:30 Ur Specific [place] 1.020 (1.005-1.030) 08/19/22 18:30 Urine Protein 1+ (Negative) H 08/19/22 18:30 Urine Glucose (UA) Norm (Normal) 08/19/22 18:30 Urine Ketones Negative (Negative) 08/19/22 18:30 Urine Blood 2+ (Negative) H 08/19/22 18:30 Urine Nitrate Positive (Negative) H 08/19/22 18:30 Urine Bilirubin Neg (Negative) 08/19/22 18:30 Urine Urobilinogen Neg mg/dL (Negative) 08/19/22 18:30 Ur Leukocyte Esterase 2+ (Negative) H 08/19/22 18:30 Urine RBC >100 /hpf (0-2) H 08/19/22 18:30 Urine WBC Too numerous to cnt /hpf (0-5) H 08/19/22 18:30 Ur Squamous Epith Cells 0-4 /hpf (0-5) H 08/19/22 18:30 Amorphous Sediment 2+ /hpf 08/19/22 18:30 Urine Bacteria 4+ /hpf (NONE) H 08/19/22 18:30 Urine Mucus 1+ /hpf 08/19/22 18:30 Vitals Last Vital Signs Temp 98.1 F 08/21/22 07:53 Pulse 74 08/21/22 12:15 Resp 16 08/21/22 12:05 BP 102/48 08/21/22 11:15 Pulse Ox 96 08/21/22 12:05 O2 Del Method 08/21/22 12:05 O2 Flow Rate 3 08/21/22 08:04 Discharge Plan Discharge Patient Disposition: Xfer SNF Condition: Fair Prescriptions: New Mucinex 600 mg Tablet Extended Release 12hr 1,200 mg PO BID Qty: 28 0RF ertapenem 1 gram recon soln 1 g IM DAILY 4 Days Qty: 4 0RF Continued simvastatin 20 mg tablet 10 mg PO DAILY montelukast 10 mg tablet 10 mg PO DAILY pioglitazone 30 mg tablet 30 mg PO DAILY Tradjenta 5 mg tablet 5 mg PO DAILY ferrous sulfate [Feosol] 325 mg (65 mg iron) tablet 325 mg PO DAILY Qty: 60 0RF sennosides [senna] 8.6 mg Tablet 8.6 mg PO DAILY acetaminophen [Tylenol] 325 mg Tablet 650 mg PO Q6H PRN (Reason: Pain) hydrocodone-acetaminophen 5-325 mg Tablet 1 tab PO Q4H PRN (Reason: Pain) magnesium hydroxide [Milk of Magnesia] 400 mg/5 mL Suspension 30 ml PO DAILY PRN (Reason: Constipation) bisacodyl [Dulcolax (bisacodyl)] 10 mg Suppository 10 mg OH DAILY PRN (Reason: Constipation) Fleet Enema 19-7 gram/118 mL Enema 118 ml OH DAILY PRN (Reason: Constipation) bisacodyl [Dulcolax (bisacodyl)] 5 mg Tablet,Delayed Release (Dr/Ec) 10 mg PO DAILY PRN (Reason: Constipation) atenolol 50 mg tablet 50 mg PO DAILY Qty: 30 1RF albuterol sulfate [Ventolin HFA] 90 mcg/actuation HFA aerosol inhaler 1 inh inhalation Q6H PRN (Reason: shortness of breath or wheezing) Qty: 6.7 0RF amino acids-protein hydrolys 15-101 gram-kcal/30 mL Liquid 30 ea PO BID Discontinued lisinopril 40 mg Tablet 40 mg PO DAILY glipizide 5 mg Tablet 5 mg PO BID Discharge Orders: Discharge Order (Routine); Ordered 08/21/22 Ordered By: Yariel Green Referrals: [facility] [Outside] Becky Moon DO [Primary Care Provider] - 4-7 days Discharge Diet: As Directed and Cardiac Discharge Activity: Increase activity as tolerated and As per PT/OT instructions Activity Restrictions/Additional Instructions: Continue level 5 dysphagia diet, minced and moist, continuous patient precautions. Had protein shakes with meals for protein calorie malnutrition. Continue flutter valve, expectorants. Complete antibiotic course with ertapenem for urinary tract infection. Continue cardiac diet, limit sodium intake, limit fluid intake, drink only thirsty, due to diastolic congestive heart failure to prevent fluid overload. Follow-up with primary provider for reassessment after pneumonia, mucous plugging, CHF exacerbation, NSTEMI, UTI, hypoglycemia. Continue to monitor glucose 3 times daily over the next week. Stop glipizide. Monitor for any low glucose. Avoid any medications that may cause hypoglycemia. Continue follow-up regarding chronic conditions, anemia, chronic kidney disease, diabetes and other. Continue follow-up with physical therapy due to deconditioning, continue follow-up with speech therapy. Blood pressures intermittently on the soft side, 102/48. Please stop lisinopril for now. Monitor blood pressures 3 times daily, consider up with her lisinopril may be safe to resume. Recheck renal function next week. Consider follow-up with nephrology. Continue work-up with regards to macrocytic anemia with mild iron deficiency as well. Hemoccult was requested here but could not be collected. Follow up regarding chronic Valdovinos catheter. Follow-up with urology. Discharge Attestations Time Spent in Discharge Care*: greater than 30 min Quality Metrics Clinical Quality Measures [ Acute Myocardial Infaction { Clinical Trial Participant: No; Contraindication to aspirin: Medical contraindication; Contraindication to statin: None; Statin prescribed;}] Coding Level of Care Code Acute Code for Chg Fwd Diagnoses Status post below knee amputation of right lower extremity Z89.511 Acute metabolic encephalopathy G93.41 Diabetes E11.9 Complete atelectasis of left lung J98.11 CKD (chronic kidney disease) stage 3, GFR 30-59 ml/min N18.30 Hypertension I10 Bilateral pleural effusion J90 UTI (urinary tract infection) N39.0 Adverse effect of glipizide T38.3X5A Hypoglycemia E16.2 Acute respiratory failure with hypoxia J96.01 Pneumonia J18.9 NSTEMI (non-ST elevated myocardial infarction) I21.4 Diastolic CHF, acute I50.31 Pulmonary edema J81.1 S/P bilateral below knee amputation Z89.512; Z89.511 Acute anemia D64.9 Hypoalbuminemia E88.09 Muscular deconditioning R29.898 Protein calorie malnutrition E46 Infection due to extended spectrum beta lactamase (ESBL) producing Proteus mirabilis A49.8; Z16.12
[2022-08-21 14:03] LABS: SARS Covid-2 Antigen negative (Negative)
[2022-08-21 14:50] LABS: Glucose Point of Care 111 mg/dL (70-110)
--- NOTE | 2022-08-21 17:23 | PC.NURSE ---
Report to [facility] Report called to nurse at [facility]. All questions answered. EMS picked pt up at 1700. Pt had one tshirt that was sent with him.
== END 2022-08-21 17:20 | disposition skilled nursing facility (03) | DRG 189 ==
LOC: ER 23:10 → ICU 08-20 00:20
PROVIDERS: Family Medicine; Admitting Provider Internal Medicine; Emergency Provider Emergency Medicine; PCP Family Medicine; Visit Provider Internal Medicine
DX: J96.01 Acute respiratory failure with hypoxia (principal); G93.41 Metabolic encephalopathy; I21.A1 Myocardial infarction type 2; I50.31 Acute diastolic (congestive) heart failure; J98.11 Atelectasis; N39.0 Urinary tract infection, site not specified; Z16.12 Extended spectrum beta lactamase (ESBL) resistance; E46 Unspecified protein-calorie malnutrition; I13.0 Hypertensive heart and chronic kidney disease with heart failure and stage 1 through stage 4 chronic kidney disease, or unspecified chronic kidney disease; E11.649 Type 2 diabetes mellitus with hypoglycemia without coma; T38.3X5A Adverse effect of insulin and oral hypoglycemic [antidiabetic] drugs, initial encounter; Z68.25 Body mass index [BMI] 25.0-25.9, adult; Z79.891 Long term (current) use of opiate analgesic; Z79.51 Long term (current) use of inhaled steroids; N18.30 Chronic kidney disease, stage 3 unspecified; E11.22 Type 2 diabetes mellitus with diabetic chronic kidney disease; Z89.512 Acquired absence of left leg below knee; Z89.511 Acquired absence of right leg below knee; B96.4 Proteus (mirabilis) (morganii) as the cause of diseases classified elsewhere; Z96.0 Presence of urogenital implants; Z87.01 Personal history of pneumonia (recurrent); Z86.16 Personal history of COVID-19
CPT/HCPCS: 36415; 36416; 71045; 71260; 76770; 80053; 81001; 82607; 82728; 82746; 82962; 83540; 83605; 83735; 83880; 84145; 84484; 85025; 86140; 86403; 87077; 87086; 87186; 87426; 87449; 87641; 92507; 92523; 92526; 92610; 93005; 94640; 94669; 96361; 96372; 96374; 99285; C9113; J0692; J0696; J1650; J1815; J1940; J2185; J2354; J3370; J7040; J7050; J7608; J7613; J7626; J7644; P9046; Q9967

== ENCOUNTER 2022-08-28 17:06 | Outpatient (CLI) | payer MEDICARE, MEDICAID, SELFPAY ==
[2022-08-28 17:26] LABS: Basophils # 0.1 10^3/uL (0.0-0.1); Eosinophils # 0.5 10^3/uL (0.0-0.8); Eosinophils % 5.3 %; Hematocrit 31.2 % (42.0-52.0); Hemoglobin 9.5 g/dL (11.7-16.6); Lymphocytes # 1.2 10^3/uL (0.8-4.8); Mean Corpuscular HGB Conc 30.4 g/dL (30.0-36.0); Mean Corpuscular Hemoglobin 29.5 pg (28.0-34.0); Mean Corpuscular Volume 96.9 fl (80-94); Mean Platelet Volume 11.3 fL (7.4-10.4); Monocytes # 0.5 10^3/uL (0.2-0.9); Monocytes % 5.7 %; Neutrophils # 6.85 10^3/uL (1.8-7.7); Neutrophils % 74.2 %; Nucleated Red Blood Cells % 0 %; Platelet Count 229 10^3/cmm (130-400); Red Blood Count 3.22 10^6/uL (4.1-5.3); White Blood Count 9.2 10^3/uL (4.0-10.0)
[2022-08-28 18:07] LABS: Slide Review Slide Review Perform
[2022-08-28 18:20] LABS: Add Urine Microscopic? YES; Bacteria Urine 1+ /hpf; Bilirubin Urine Neg (Negative); Blood Urine 2+ (Negative); Glucose Urine UA Norm (Normal); Ketones Urine 1+ (Negative); Leukocyte Esterase Urine 2+ (Negative); Nitrate Urine Negative (Negative); Protein Urine 1+ (Negative); Urine Appearance Cloudy (CLEAR); Urine Color Yellow (Yellow); Urobilinogen Urine Neg (Negative); WBC Urine 80-100 /hpf (0-5); pH Urine 5 (5-7)
[2022-08-28 18:21] LABS: Add Urine Culture? Yes
== END 2022-08-28 17:07 | disposition home or self-care (01) ==
PROVIDERS: PCP Family Medicine; Visit Provider Internal Medicine
DX: J18.9 Pneumonia, unspecified organism (principal)
CPT/HCPCS: 81001; 85025; 87086; 87106

== ENCOUNTER 2023-03-23 13:39 | Outpatient (CLI) | payer MEDICARE, MEDICAID, SELFPAY ==
[2023-03-23 14:12] LABS: Basophils # 0.1 10^3/uL (0.0-0.1); Basophils % 1.1 %; Eosinophils # 0.5 10^3/uL (0.0-0.8); Eosinophils % 5.2 %; Hematocrit 28.3 % (37-53); Lymphocytes # 1.7 10^3/uL (0.8-4.8); Lymphocytes % 16.2 %; Mean Corpuscular HGB Conc 32.9 g/dL (30-55); Mean Corpuscular Hemoglobin 31.7 pg (27-33); Mean Corpuscular Volume 96.6 fl (82-101); Mean Platelet Volume 10.2 fL (7.4-10.4); Monocytes # 0.6 10^3/uL (0.2-0.9); Monocytes % 6.2 %; Neutrophils % 70.9 %; Nucleated Red Blood Cells % 0 %; Platelet Count 422 10^3/cmm (157-399); Red Blood Count 2.93 10^6/uL (3.85-5.65); Red Cell Distribution Width 15.9 % (12.1-15.1); White Blood Count 10.16 10^3/uL (3.29-11.43)
[2023-03-23 14:38] LABS: Bilirubin Urine Neg (Negative); Blood Urine 2+ (Negative); Glucose Urine UA Norm (Normal); Ketones Urine 1+ (Negative); Leukocyte Esterase Urine 2+ (Negative); Nitrate Urine Positive (Negative); Protein Urine 3+ (Negative); RBC Urine 0-4 /hpf (0-2); Urine Appearance Cloudy (CLEAR); Urine Color Yellow (Yellow); Urobilinogen Urine 1 mg/dL (Negative); WBC Urine 25-40 /hpf (0-5); pH Urine 7 (5-7)
[2023-03-23 14:39] LABS: Add Urine Culture? Yes; Amorphous Sediment Urine 3+ /hpf; Bacteria Urine 3+ /hpf; Squamous Epithelial Cell Urine 0-4 /hpf (0-5)
== END 2023-03-23 13:40 | disposition home or self-care (01) ==
LOC: LAB 13:43
PROVIDERS: PCP Family Medicine; Visit Provider Nurse Practitioner Family
DX: I13.0 Hypertensive heart and chronic kidney disease with heart failure and stage 1 through stage 4 chronic kidney disease, or unspecified chronic kidney disease (principal)
CPT/HCPCS: 81001; 85025; 87077; 87086; 87186